=== PATIENT | male | born 1965 | race Caucasian/White ===

== ENCOUNTER → 2017-09-11 08:19 | Outpatient (CLI) | payer BC, SELFPAY ==
[2017-09-11 10:27] LABS: Anion Gap 4 (5-15); BUN 15 mg/dL (7-18); BUN/Creat Ratio 17.3 RATIO (10-20); Calcium,Total 8.3 mg/dL (8.5-10.1); Chloride 106 mmol/L (98-107); Cholesterol 186 mg/dL (200); Creatinine, Serum 0.87 mg/dL (0.70-1.30); EST Glomerular Filtration Rate 98 mL/min (>60); Est Glom Filt Rate - Afr Amer 118 mL/min (>60); Glucose 103 mg/dL (74-106); High Density Lipoprotein 43 mg/dL; Sodium Level 138 mmol/L (136-145); Triglycerides 120 mg/dL; Very Low Density Lipoprotein 24 mg/dL (5-40)
== END ==
PROVIDERS: Family Provider Family Medicine; PCP Family Medicine; Visit Provider Family Medicine
DX: I10 Essential (primary) hypertension (principal)
CPT/HCPCS: 36415; 80048; 80061

== ENCOUNTER → 2017-11-25 14:31 | Outpatient (CLI) | payer BC, SELFPAY ==
--- NOTE | 2017-11-25 14:34 | RAD_ITS ---
STUDY: X-RAY - PELVIS AND LEFT HIP REASON FOR EXAM: Male, 52 years old. Chronic left hip pain. TECHNIQUE: Radiological exam, hip, unilateral, with pelvis when performed; 2 or 3 views. COMPARISON: None. FINDINGS: There is a non-specific bowel gas pattern. Normal visualized soft tissue structures. Normal bilateral iliac wings, sacroiliac joints and visualized sacrum. Normal bilateral superior and inferior pubic rami. Normal pubic symphysis. Normal bilateral ischial tuberosities. There are osteoarthritic changes of the left femoral head with marginal osteophyte formation. There is osteoarthritic spur formation of the lateral acetabular rim. There is mild articular joint space narrowing of the left hip. RAD/Hip 2-3 Views with Pelvis IMPRESSION: Degenerative changes of the left hip. Electronically Signed: Eder Torres DO at 15:05 EDT Tel [phone], Service support ,
== END ==
PROVIDERS: Family Provider Family Medicine; PCP Family Medicine; Visit Provider Family Medicine
DX: M16.12 Unilateral primary osteoarthritis, left hip (principal)
CPT/HCPCS: 73502

== ENCOUNTER 2018-01-15 07:00 | Outpatient (RCR) | payer BC, SELFPAY ==
--- NOTE | 2017-12-06 07:48 | HP.PTEVAL_ITS ---
Patient's Visit Information CY LIM is a 52 year old M referred to Physical Therapy by Juan Hunt with a diagnosis of Hip Pain. Date of Evaluation: 12/06/17 Physical Therapist: Lesli Jarquin - Visit Plan Frequency: 2x /Week Duration: 3 Weeks Plan: Focus on LE strength/stabilization - Subjective Subjective: Left hamstring pain- insidious onset a couple of months ago. If he sneezes it hurts on the right side but does not do it any other time. Pain is located in the left hamstring- Agg: sitting, putting shoes on Worst: 7/10 Once he gets up he has to keep moving. Best: 2/10 Eases: getting up and moving around and it dulls it quickly. Describes pain as dull and achy now that he is on Naproxen- he is 75% better since started the meds- 11/25. Has always had N/T that comes and goes. If he straightens up it makes the N/T worse. X-rays of and hip and pelvis. MD reports that he has an arthritic hip - not ready to be replaced. He goes to the chiropractor- Dr. Ayala- last episode of can't get off the floor back pain was about a year ago. 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 The left hamstring will cramp on him. Sleep: does not disturbed- back sleeper. No loss or change in bowel or bladder. PMHx: right arm fracture, back issues, bilateral carpal tunnel, bilateral wrist, appendix/gallbladder, HTN, Right RTC Repair (4 years ago) Meds : Naproxen, HTN med. - Objective Posture: good throughout. Gait: no deviation noted. Stairs: no deviation noted. HR/TR: WNL. Balane: SLS for 20 seconds. Palpation: not tender. ROM: Lumbar: WFL, Hip: WFL except IR: decreased by 50% compared to the right with significant reproduction of symptoms. Strength: Core: fair plus, Hip: 4/5 throughout Knee: 5/5, Ankle: 5/5. Special Test: Figure 4: diminishd by 50% compared to other side and increases pain. Flex: HS: severe, Gastroc: mod - Goals Goal 1:: Patient will be I with HEP and progression Goal Time Frame: 4-6 Weeks Goal 2:: Patient will demo 5/5 strength in LE where deficit to ease ADL's. Goal Time Frame: 4-6 Weeks Goal 3:: Patient will report 2/10 pain for 1 week at the worst Goal Time Frame: 4-6 Weeks - Rehabilitation Potential Physical Therapy Diagnosis: Patient presents with hypomobility of the left hip- he has decreased ROM, strength and muscular endurance leading to increased pain. Rehabilitation Potential: Fair - Anticipated Interventions Patient/Client Instruction: Educate patient on: Benefits of Fitness Program For the Purpose of:: To improve ability to perform ADL's Therapeutic Exercise to Include: Strength training, Endurance training, Balance training, Body mechanics, Flexibilty training, Dynamic Lumbar Stabilization For the Purpose of:: To improve muscle performance and motor function Cryotherapy (ice pack, ice massage): Yes Thermo therapy (hot pack): Yes Ultrasound (thermal/non thermal): Yes For the Purpose of:: To decrease pain Thank you for the opportunity to evaluate your patient. For Medicare and Medicare HMO plans, please review the plan of care and approve it. It will need to be FAXED BACK to us at [phone] for Medicare purposes. Please let me know if there are questions or concerns regarding this plan of care. Physician Signature: Date:
--- NOTE | 2017-12-27 07:50 | HP.PTREVAL_ITS ---
Juan Hunt, It has been my pleasure to treat CY LIM over the last 6 visits for Hip Pain. Please see the progress note below for an update on the physical therapy plan of care! Subjective: The hip/hamstring is better- no pain running heavy equiptment. He still has twinges every now and then and would like to continue to learn a home exercise program Objective/Function: Posture: good throughout. Gait: no deviation noted. Stairs : no deviation noted. HR/TR: WNL. Balane: SLS for 30 seconds. Palpation: not tender. ROM: Lumbar: WFL, Hip: WFL except IR: decreased by 25% compared to the right with moderate reproduction of symptoms. Strength: Core: fair plus, Hip: 4 +/5 throughout Knee: 5/5, Ankle: 5/5. Special Test: Figure 4: diminishd by 50% compared to other side and increases pain. Flex: HS: severe, Gastroc: mod Plan Plan: Continue 1x a weekfor 4 weeks for progression to HEP Goals Goal 1:: Patient will be I with HEP and progression Goal Time Frame: 4-6 Weeks Goal Progress: Progressing Goal 2:: Patient will demo 5/5 strength in LE where deficit to ease ADL's. Goal Time Frame: 4-6 Weeks Goal Progress: Progressing Goal 3:: Patient will report 2/10 pain for 1 week at the worst Goal Time Frame: 4-6 Weeks Goal Progress: Progressing Anticipated Interventions Patient/Client Instruction: Educate patient on: Benefits of Fitness Program For the Purpose of:: To improve ability to perform ADL's Therapeutic Exercise to Include: Strength training, Endurance training, Balance training, Body mechanics, Flexibilty training, Dynamic Lumbar Stabilization For the Purpose of:: To improve muscle performance and motor function Cryotherapy (ice pack, ice massage): Yes Thermo therapy (hot pack): Yes Ultrasound (thermal/non thermal): Yes For the Purpose of:: To decrease pain Please do not hesitate to contact me at [phone] by phone or Fax: if you have questions or concerns regarding this new plan of care! Sincerely, Lesli Jarquin
--- NOTE | 2018-01-15 07:26 | HP.PTDCSUM_ITS ---
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 Discharge Date: Please see the following information for a summary of their discharge status. - Subjective Subjective: Pt reports he has no pain this date. I am as painfree as i have been in a long time. - Overall Improvement % Improvement: 100 - Objective Objective/Function: Pt has 0/10 pain this date. B LE MMT 5/5 throughout. Pt is I with HEP. Rx goals achieved - Goals Goal 1:: Patient will be I with HEP and progression Goal Progress: Goal Met Goal 2:: Patient will demo 5/5 strength in LE where deficit to ease ADL's. Goal Progress: Goal Met Goal 3:: Patient will report 2/10 pain for 1 week at the worst Goal Progress: Goal Met - Plan Plan: Discharge - D/C Information If there are questions or concerns regarding this patient's physical therapy, please feel free to call me at [phone]. Thank you for the referral of this patient. Sincerely, Félix Amaya, PT,
== END 2018-01-15 18:33 | disposition home or self-care (01) ==
LOC: PT 07:00
PROVIDERS: Family Provider Family Medicine; PCP Family Medicine; Visit Provider Family Medicine
DX: M25.552 Pain in left hip (principal)
CPT/HCPCS: 97110; 97161; 97164; 97530

== ENCOUNTER → 2018-09-15 08:36 | Outpatient (CLI) | payer BC, SELFPAY ==
[2018-09-15 10:54] LABS: Anion Gap 9 (5-15); BUN 22 mg/dL (7-18); BUN/Creat Ratio 24.7 RATIO (10-20); Calcium,Total 8.5 mg/dL (8.5-10.1); Chloride 107 mmol/L (98-107); Cholesterol 160 mg/dL (200); Creatinine, Serum 0.89 mg/dL (0.70-1.30); EST Glomerular Filtration Rate 94 mL/min (>60); Est Glom Filt Rate - Afr Amer 114 mL/min (>60); Glucose 105 mg/dL (74-106); High Density Lipoprotein 51 mg/dL; Sodium Level 144 mmol/L (136-145); Triglycerides 99 mg/dL; Very Low Density Lipoprotein 20 mg/dL (5-40)
== END ==
PROVIDERS: Family Provider Family Medicine; PCP Family Medicine; Visit Provider Family Medicine
DX: I10 Essential (primary) hypertension (principal)
CPT/HCPCS: 36415; 80048; 80061

== ENCOUNTER → 2019-09-16 08:35 | Outpatient (CLI) | payer BC, SELFPAY ==
[2019-09-16 10:27] LABS: Anion Gap 4 (5-15); BUN 19 mg/dL (7-18); BUN/Creat Ratio 20.2 RATIO (10-20); Calcium,Total 8.6 mg/dL (8.5-10.1); Chloride 106 mmol/L (98-107); Cholesterol 197 mg/dL (200); Creatinine, Serum 0.94 mg/dL (0.70-1.30); EST Glomerular Filtration Rate 88 mL/min (>60); Est Glom Filt Rate - Afr Amer 107 mL/min (>60); Glucose 112 mg/dL (74-106); High Density Lipoprotein 47 mg/dL; Potassium 3.8 mmol/L (3.5-5.1); Sodium Level 139 mmol/L (136-145); Triglycerides 116 mg/dL; Very Low Density Lipoprotein 23 mg/dL (5-40)
== END ==
PROVIDERS: PCP Family Medicine; Referring Provider Family Medicine; Visit Provider Family Medicine
DX: I10 Essential (primary) hypertension (principal)
CPT/HCPCS: 36415; 80048; 80061

== ENCOUNTER → 2019-11-04 15:39 | Outpatient (CLI) | payer BC, SELFPAY ==
--- NOTE | 2019-11-04 15:42 | RAD_ITS ---
STUDY: X-RAY - PELVIS AND BILATERAL HIPS REASON FOR EXAM: Male, 54 years old. Right hip pain TECHNIQUE: AP view of the pelvis.? 2 views of the right hip, and 2 views of the left hip were obtained. COMPARISON: 11/25/2017. FINDINGS: There is a non-specific bowel gas pattern. Normal visualized soft tissue structures. Normal bilateral iliac wings, sacroiliac joints and visualized sacrum. Normal bilateral superior and inferior pubic rami. Normal pubic symphysis. Normal bilateral ischial tuberosities. There are osteoarthritic changes of the right femoral head with marginal osteophyte formation. There is osteoarthritic spur formation of the right acetabular rim. There is moderate articular joint space narrowing of the right hip. There are mild osteoarthritic changes of the left femoral head with marginal osteophyte formation. There is osteoarthritic spur formation of the left acetabular rim. Normal left hip joint. RAD/Hips B/L min 2 views w/ Pelvis IMPRESSION: No acute abnormalities. Bilateral degenerative changes worse of the right hip. Electronically Signed: Larry Valdovinos MD at 16:16 EDT , Service support ,
== END ==
PROVIDERS: PCP Family Medicine; Referring Provider Family Medicine; Visit Provider Family Medicine
DX: M25.551 Pain in right hip (principal)
CPT/HCPCS: 73521

== ENCOUNTER 2019-11-17 08:00 | Outpatient (RCR) | payer BC, SELFPAY ==
--- NOTE | 2019-11-11 09:31 | HP.PTEVAL_ITS ---
Patient's Visit Information CY LIM is a 54 year old M referred to Physical Therapy by Juan Hunt MD with a diagnosis of R hip pain. Date of Evaluation: 11/11/19 Physical Therapist: Félix Amaya PT, ATC - Visit Plan Frequency: 1x/Week Duration: 1 Week Plan: Issue and instruct pt on HEP of R LE strenthening, core stab ex's - Subjective Pt reports his R hip has been sore for a long time. Pt reports his pain starts in his hip and radiates to his R groin. Pt had xrays taken which revealed sig deg changes in the R hip, and mild to moderate deg changes in the L hip. Pt reports his pain is stabbing in nature. Pt reports he has an aching pain down his R LE to the calf region at times. 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 Pt reports sig sleep difficulty secondary to pain. prolonged standing increases his pain. 5/10 pain at rest, 10/10 pain at worst. - Pain R hip Pain Intensity (Out of 10): 5 Pain Intensity Range: 10 - Objective Neuro: B LE sensation is WNL to light touch. B patellar reflex= 2/3. ROM: R hip IR is significantly limited. All other ranges are WNL. MMT: L LE 5/5 throughout. R hip grossly 4/5 and painful. ROM: L/S ext is minimally blocked. No increase in pain with repeated movements. Special test: Pos quadrant test - Goals Goal 1:: I with HEP Goal Time Frame: 1 Week - Rehabilitation Potential Physical Therapy Diagnosis: Pt has R hip pain, weakness, and limited standing tolerance secondary to R hip pain Rehabilitation Potential: Good - Anticipated Interventions Patient/Client Instruction: Educate patient on: Condition, Plan of Care For the Purpose of:: To improve self management Therapeutic Exercise to Include: Strength training, Endurance training, Balance training, Dynamic Lumbar Stabilization For the Purpose of:: To decrease pain, To improve muscle performance and motor function Cryotherapy (ice pack, ice massage): Yes For the Purpose of:: To decrease pain Thank you for the opportunity to evaluate your patient. For Medicare and Medicare HMO plans, please review the plan of care and approve it. It will need to be FAXED BACK to us at [phone] for Medicare purposes. For Medicare only, by signing this I certify the plan of care. Please let me know if there are questions or concerns regarding this plan of care. Physician Signature: _Date:
--- NOTE | 2019-12-10 16:14 | HP.PT.NRP ---
CY LIM was seen in my office for initial evaluation on 11/11/19. The following Plan of Care was established for this patient: Initial Frequency: 1x/Week Initial Duration: 1 Week Patient/Client Instruction: Educate patient on: Condition, Plan of Care For the Purpose of:: To improve self management Therapeutic Exercise to Include: Strength training, Endurance training, Balance training, Dynamic Lumbar Stabilization For the Purpose of:: To decrease pain, To improve muscle performance and motor function Cryotherapy (ice pack, ice massage): Yes For the Purpose of:: To decrease pain This patient was last seen in our office . Pertinent comments regarding their Physical therapy will appear below: Discontinue secondary to change in Dr. At this point I will be discontinuing this patient from physical therapy. I would be happy to see this patient again in the future if found appropriate by the physician. Thank you! Félix Amaya, PT, ATC
== END 2019-11-17 19:00 | disposition home or self-care (01) ==
LOC: PT 08:00
PROVIDERS: PCP Family Medicine; Referring Provider Family Medicine; Visit Provider Family Medicine
DX: M16.0 Bilateral primary osteoarthritis of hip (principal)
CPT/HCPCS: 97110; 97161

== ENCOUNTER → 2019-11-26 08:59 | Outpatient (CLI) | payer BC, SELFPAY ==
[2019-11-26 10:17] LABS: Absolute Neutrophil Count 2.6 X10^3/uL (2.0-7.7); Basophil# 0.05 X10^3/uL; Basophil% 1.2 % (0-1); Eosinophil# 0.17 X10^3/uL; Eosinophils% 3.9 % (0-5); Hematocrit 44.2 % (40-54); Hemoglobin 15.2 g/dL (13.0-16.5); Lymphocyte % 23.1 % (19-41); Mean Corp Hgb Conc 34.4 g/dL (32-36); Mean Corpuscular Hgb 30.1 pg (27.0-32.0); Mean Corpuscular Volume 87.5 fL (80-94); Mean Platelet Vol. 9.4 fl (6.2-12.0); Monocyte# 0.42 X10^3/uL; Monocyte% 9.7 % (0-10); NRBC Flagged by Analyzer 0 % (0-5); Neutrophil # 2.62 X10^3/uL (2.7-7.7); Neutrophil % 60.5 % (47-70); Platelet Count 192 K/mm3 (150-450); RBC Distribution Width CV 12.6 % (11.6-14.6); RBC Distribution Width SD 39.4 fl (35.1-43.9); Red Blood Count 5.05 M/mm3 (4.6-6.2); White Blood Count 4.3 K/mm3 (4.4-11.0)
[2019-11-26 10:45] LABS: Anion Gap 6 (5-15); BUN 22 mg/dL (7-18); BUN/Creat Ratio 23.7 RATIO (10-20); Calcium,Total 8.6 mg/dL (8.5-10.1); Chloride 108 mmol/L (98-107); Creatinine, Serum 0.93 mg/dL (0.70-1.30); EST Glomerular Filtration Rate 89 mL/min (>60); Est Glom Filt Rate - Afr Amer 108 mL/min (>60); Glucose 102 mg/dL (74-106); Potassium 4.1 mmol/L (3.5-5.1); Sodium Level 141 mmol/L (136-145)
== END ==
PROVIDERS: PCP Family Medicine; Referring Provider Family Medicine; Visit Provider Family Medicine
DX: M25.551 Pain in right hip (principal)
CPT/HCPCS: 36415; 80048; 85025

== ENCOUNTER → 2019-12-17 11:07 | Outpatient (CLI) | payer BC, SELFPAY ==
--- NOTE | 2019-12-17 11:12 | VDLE_ITS ---
Reason For Study: Rt leg pain RIGHT LEFT GSV is normal. CFV is compressible, spontaneous, phasic, CFV is compressible, spontaneous, phasic, competent, and demonstrates normal competent and demonstrates normal augmentation. augmentation. FV is compressible, spontaneous, phasic, competent and demonstrates normal augmentation. POP V is compressible, spontaneous, phasic, competent and demonstrates normal augmentation. T/P Trunk is compressible. PTV is compressible. RT PerV is compressible. Procedure Exam performed in department. A preliminary report was called and/or faxed to [place]. Interpretation Summary Deep veins of the right lower extremity are patent and compressible segmentally. There is no evidence of right lower extremity deep vein thrombosis. Valvular competence appears intact within the proximal deep venous system on the right . The right great saphenous vein appears patent and compressible segmentally. Ordering Physician: Linus Quinn Referring Physician: Juan Hunt Performed By: Felicity Lafleur RVT
== END ==
PROVIDERS: PCP Family Medicine; Referring Provider Specialist; Visit Provider Specialist
DX: M79.604 Pain in right leg (principal)
CPT/HCPCS: 93971

== ENCOUNTER → 2020-01-04 13:36 | Outpatient (CLI) | payer BC, SELFPAY ==
--- NOTE | 2020-01-04 13:38 | VDLE_ITS ---
Reason For Study: LEG SWELLING RIGHT LEFT GSV is normal. CFV is compressible, spontaneous, phasic, CFV is compressible, spontaneous, phasic, competent, and demonstrates normal competent and demonstrates normal augmentation. augmentation. FV is compressible, spontaneous, phasic, competent and demonstrates normal augmentation. POP V is compressible, spontaneous, phasic, competent and demonstrates normal augmentation. T/P Trunk is compressible. PTV is compressible. RT PerV is compressible. Procedure Exam performed in department. The exam was diagnostic. A preliminary report was called and/or faxed to Dr. Quinn at [phone]. Interpretation Summary Deep veins of the right lower extremity are patent and compressible segmentally. There is no evidence of right lower extremity deep vein thrombosis. Valvular competence appears intact within the proximal deep venous system on the right . The right great saphenous vein appears patent and compressible segmentally. Ordering Physician: Linus Quinn Referring Physician: Juan Hunt Performed By: Maria M Michael RVT, RDCS and Student
== END ==
PROVIDERS: PCP Family Medicine; Referring Provider Specialist; Visit Provider Specialist
DX: R60.0 Localized edema (principal); M16.11 Unilateral primary osteoarthritis, right hip; Z96.641 Presence of right artificial hip joint
CPT/HCPCS: 93971

== ENCOUNTER 2020-01-05 13:00 | Outpatient (RCR) | payer BC, SELFPAY ==
--- NOTE | 2019-12-10 17:35 | HP.PTEVAL_ITS ---
Patient's Visit Information CY LIM is a 54 year old M referred to Physical Therapy by Matthew Rivas PA-C with a diagnosis of R AMBER. Date of Evaluation: 12/10/19 Physical Therapist: Félix Amaya, PT, ATC - Visit Plan Frequency: 2-3x /Week Duration: 4-6 Weeks Plan: R LE strengthneing, balance and proprio, core stab ex's, nustep, and HEP - Subjective DOS: 12/08/2019. Pt notes he had R knee pain for a long time. Pt reports he had PT in the past, but his pain never improved. Pt reports he feels so much better now since having the surgery. Pt reports the pain he had prior to surgery is completely gone. Pt reports he walked with a walker for a day at the hospital but then transitioned onto a cane which has has been using since. Pt notes he had an anterior approach for his AMBER. Pt notes sleep difficulty with out pain meds. No tingling or numbness in R LE. 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 4/10 pain at rest, 8/10 pain at worst - Pain R hip Pain Intensity (Out of 10): 4 Pain Intensity Range: 8 - Objective Neuro: B LE sensation is WNL to light touch. B patellar reflex= 2/3. Observation: Incision still bandanged. No obvious signs of infection. ROM: B LE's are WFL. MMT: R LE is grossly 3/5 this date. L LE 5/5 throughout. Gait: Pt able to ambulate 150 feet with std cane until having to rest secondary to pain. - Goals Goal 1:: Decrease R hip pain x 50% to aid with sleep Goal Time Frame: 4-6 Weeks Goal 2:: Increase R hip strength x 1 grade to aid with stair negotiation Goal Time Frame: 4-6 Weeks Goal 3:: Increase gait tolerance to greater than 300 feet to aid with community ambulation Goal Time Frame: 4-6 Weeks Goal 4:: I with HEP Goal Time Frame: 4-6 Weeks - Rehabilitation Potential Physical Therapy Diagnosis: R hip pain, weakness, and limited walking distance secondary to R AMBER Rehabilitation Potential: Good - Anticipated Interventions Patient/Client Instruction: Educate patient on: Condition, Plan of Care For the Purpose of:: To improve self management Therapeutic Exercise to Include: Strength training, Endurance training, Balance training, Gait and locomotor training, Dynamic Lumbar Stabilization For the Purpose of:: To decrease pain, To increase ROM, To improve muscle performance and motor function Cryotherapy (ice pack, ice massage): Yes For the Purpose of:: To decrease pain Thank you for the opportunity to evaluate your patient. For Medicare and Medicare HMO plans, please review the plan of care and approve it. It will need to be FAXED BACK to us at [phone] for Medicare purposes. For Medicare only, by signing this I certify the plan of care. Please let me know if there are questions or concerns regarding this plan of care. Physician Signature: Date:
== END 2020-01-05 19:00 | disposition home or self-care (01) ==
LOC: PT 13:00
PROVIDERS: PCP Family Medicine; Referring Provider Physician Assistant Surgical; Visit Provider Physician Assistant Surgical
DX: M16.0 Bilateral primary osteoarthritis of hip (principal)
CPT/HCPCS: 97110; 97161

== ENCOUNTER → 2020-01-07 09:48 | Outpatient (CLI) | payer BC, SELFPAY ==
[2020-01-07 10:27] LABS: Absolute Lymphocyte Count 0.54 X10^3/uL (0.83-4.51); Absolute Neutrophil Count 8.3 X10^3/uL (2.0-7.7); Basophil# 0.02 X10^3/uL; Basophil% 0.2 % (0-1); Eosinophil# 0.06 X10^3/uL; Eosinophils% 0.6 % (0-5); Hematocrit 43.2 % (40-54); Lymphocyte # 0.54 X10^3/ul (4.0); Lymphocyte % 5.7 % (19-41); Mean Corp Hgb Conc 32.4 g/dL (32-36); Mean Corpuscular Hgb 29.9 pg (27.0-32.0); Mean Corpuscular Volume 92.1 fL (80-94); Mean Platelet Vol. 9.5 fl (6.2-12.0); Monocyte# 0.57 X10^3/uL; NRBC Flagged by Analyzer 0 % (0-5); Neutrophil % 87.2 % (47-70); POSITIVE DIFFERENTIAL YES; Platelet Count 162 K/mm3 (150-450); RBC Distribution Width CV 13.6 % (11.6-14.6); RBC Distribution Width SD 45.3 fl (35.1-43.9); Red Blood Count 4.69 M/mm3 (4.6-6.2); White Blood Count 9.5 K/mm3 (4.4-11.0)
[2020-01-07 10:34] LABS: Differential Indicated SCAN CRITERIA MET
[2020-01-07 10:38] LABS: Erythrocyte Sedimentation Rate 28 mm/hr (0-20)
[2020-01-07 16:26] LABS: Body Fluid Mononuclear WBC % 7.5 %; Body Fluid Polynuclear WBC % 92.5 %; Red Cell Count/Body Fluid 0.046 10^6/ul
[2020-01-07 18:07] LABS: Auto B Fluid Analyzer BKGD Ct COUNTS W/IN LIMITS (W/IN LIMITS)
[2020-01-07 18:08] LABS: Appearance/Body Fluid TURBID; Color/Body Fluid PINK; Lymphocytes 1 %; Neutrophil (Segs) 99 %; Source- Body Fluid OTHER
[2020-01-07 18:09] LABS: Body Fluid QC Type(s) BF1Q.BF2Q
[2020-01-11 11:36] LABS: Pathologist Comment/Body Fluid Reviewed
== END ==
PROVIDERS: PCP Family Medicine; Referring Provider Specialist; Visit Provider Specialist
DX: M25.551 Pain in right hip (principal); Z96.641 Presence of right artificial hip joint
CPT/HCPCS: 36415; 85025; 85652; 86140; 87015; 87070; 87075; 87077; 87101; 87116; 87186; 87205; 87206; 89050

== ENCOUNTER 2020-01-07 18:29 | Inpatient (IN) | payer BC, SELFPAY ==
[2020-01-07 17:53] VITALS: BMI 32.4
[2020-01-07 18:30] VITALS: BP 129/76; PULSE 96; RESP 18; TEMP 38.7; O2SAT 95
[2020-01-07] MEDS: Acetaminophen 500 MG Tablet 1000 MG PO (19:44)
[2020-01-07 20:48] VITALS: BP 122/59; PULSE 104; RESP 18; TEMP 38.8; O2SAT 93
[2020-01-07 21:01] VITALS: RESP 18
[2020-01-07] MEDS: oxyCODONE 5 MG Tablet PO (21:17)
[2020-01-07] MEDS: 0.9% Saline Lock 10 ML Syringe IV (21:18)
[2020-01-08] VITALS (15 sets, daily range): BP systolic 102–146; BP diastolic 56–82; PULSE 80–98; RESP 16–20; TEMP 36.2–37.4; O2SAT 92–100; BMI 32.4
--- NOTE | 2020-01-08 | TISS_PTH ---
PATIENT: CY LIM LOC: [id number] U#:[id number] AGE/SX: 54/M ROOM: [facility] RE01/07/[address]: Dr. Linus Quinn MD : 1965 BED: 1 DIS: 01/12/2020 SPEC #: [id number] RECD: 01/08/20 15:00 STATUS: RACHELLE GARCÍALatasha #: [id number] ASHLI: 01/08/20 00:[address]: Linus Quinn DEPT: SURGICAL PATHOLOGY RECD BY: Shravan Montez ENTERED: 01/11/20 09:44 SP TYPE: Tissue Bx JONATHAN DR: MD Dr. Ramses Galeano MD Tissues: Hip, NOS Procedures: Special Stain Group I Surgery Specimen Level IV AFB Stain (control) HEADER OPERATION: Total hip anterior revision, I & D, application of wound vac PRE-OP DIAGNOSIS: Infected, painful right hip TISSUE SUBMITTED: Femoral membrane right hip MICROSCOPIC DIAGNOSIS Femoral membrane of right hip, biopsy: Fragments of bone with chronic change and organizing blood clot. Negative for acid fast bacilli. See comment. AM:leander 01/12/20 COMMENT AFB stain with matched control supports the above diagnosis. MICROSCOPIC DESCRIPTION Slides are reviewed. GROSS DESCRIPTION Received in fixative is one container labeled with the patient's name and designated femoral membrane. The specimen consists of two fragments of pink congested, gritty tissue that in aggregate measure 1.5 x 1 x 0.2 cm. The specimen is totally submitted in one cassette. / SJ:leander 01/11/20 TC:3 CPT: 46271, 56488
[2020-01-08] MEDS: 0.9% Normal Saline 1,000 ML 125 ML IV ×2 (00:20→08:54)
[2020-01-08] MEDS: 0.9% Saline Lock 10 ML Syringe IV ×3 (00:24→16:18)
[2020-01-08] MEDS: oxyCODONE 5 MG Tablet PO ×2 (01:54→22:14)
--- NOTE | 2020-01-08 02:55 | EKG12_ITS ---
Test Reason : AM EKG Blood Pressure : / mmHG Vent. Rate : 085 BPM Atrial Rate : 085 BPM P-R Int : 156 ms QRS Dur : 084 ms QT Int : 354 ms P-R-T Axes : 052 043 022 degrees QTc Int : 421 ms Normal sinus rhythm Normal ECG Confirmed by KVNG NO, DARON ([id number]), research editor ALCON MEDELLIN ([id number]) on 01/13/2020 10:25:51 AM Referred By: [place] Confirmed By:DARON CALDERON MD
[2020-01-08] MEDS: Acetaminophen 500 MG Tablet 1000 MG PO ×3 (05:42→22:23)
[2020-01-08] MEDS: Lactated Ringers 1,000 ML 125 ML IV ×3 (09:00→16:14)
--- NOTE | 2020-01-08 09:06 | NURSING ---
Pt brought down to OR via bed.
--- NOTE | 2020-01-08 09:40 | RAD_ITS ---
STUDY: X-RAY - PELVIS AND RIGHT HIP REASON FOR EXAM: Male, 54 years old. intraoperative right hip revision TECHNIQUE: Intraoperative fluoroscopy COMPARISON: None. FINDINGS: Refer to operative report for details. There is right hip arthroplasty. RAD/Hip 1 view with Pelvis IMPRESSION: Right hip arthroplasty intraoperative fluoroscopy. Electronically Signed: Robert Saleem, at 16:28 EDT Tel , Service support ,
[2020-01-08] MEDS: Cefazolin 2 GM in 0.9% Normal Saline 100 ML IV (11:19)
[2020-01-08] MEDS: Vancomycin IV 1,000 MG/20 ML Vial 1000 MG OPERA.SITE (12:00)
--- NOTE | 2020-01-08 12:18 | CASEMGMT ---
Addendum entered by Yulia Cartwright 01/08/20 14:07: Pt is still @ OR. Original Note: RN CM NOTE: Pt @ OR. Unable to complete RN CM assessment at this time. Neymar CARRN RN CM
--- NOTE | 2020-01-08 13:01 | PCM.OPRPT ---
Report of Operation Date of Procedure: 01/08/20 Pre-Operative Diagnosis: Right hip periprosthetic joint infection Post-Operative Diagnosis: Right hip periprosthetic joint infection Surgery/Procedure Performed:: Direct anterior right hip irrigation debridement with revision of entire femoral component and acetabular component liner. Description of Surgical Findings:: Hip was aggressively debrided. Stable on reduction. Femoral component was removed and new cemented component was placed. Acetabular component was well fixed so we elected to maintain the acetabular component. senior database programmer: Jose Rivas Type of Anesthesia:: General Anesthesiologist: Devin Paul Special Medications: 2 g of Ancef after cultures, vancomycin IV 15 mg/kg after culture. 1 g vancomycin powder in wound at completion of case. Specimen's removed: 5 separate specimens were sent to microbiology. 2 superficial, 3 deep. Estimated Blood Loss (mL): 450 Fluids Replaced: 1400 Description of Procedure: Components used: 1. [place] Berna femoral stem size 37.5/3 2. Berna X3 polyethylene G 3. [place] Biolox delta 36mm, 0mm femoral head Brief history operative indications: 54 yo m who had a total hip replacement on December 08, 2019. Patient did well he did have some bloody drainage for about 48 hours after surgery which healed up without incident. He had swelling 5 days after surgery which resolved with seem to be uneventfully. 3 days ago he started having increased swelling again with progressive pain and mild ulceration of the distal part of the incision. He was aspirated in the office with purulent fluid and a CRP of 326. Based on the proximity to surgery irrigation debridement and revision total hip replacement was discussed with the patient with risks and benefits including but not limited to blood loss, DVTs, PEs, neurovascular damage, dislocation, general risks of anesthesia including loss of life. Patient demonstrated an understanding medical clearance is obtained the patient was consented for surgery. Procedure: On the date of procedure the patient's r hip was marked in the preoperative area. Patient was then taken back to the operating room where anesthesia assumed control of the C-spine and airway and administered anesthetic. Patient was transferred to the operating table and placed in the supine position. The hips were placed at the break of the bed and a sacral bump was placed. The r lower extremity was then prepped out in a sterile fashion using chlorhexidine while the surgeon scrubbed. The PA was vital in the positioning of the patient. Upon reentering the room the r lower extremity was draped in the standard orthopedic fashion and the incision was marked. A timeout was called and everyone agreed upon the side, the site, the procedure be performed, antibody given, and patient's identity. At this time incision was made through skin, subcutaneous tissue and area of collected hematoma had gross purulence. This was aggressively debrided. Soft tissue from this area was sent for culture. It was very clear that there was a connection with this area and a collection of purulent fluid deeper into the joint. After this area was aggressively debrided removing any infectious debris and tissue we then incised the fascia and were able to get deep to the joint. The fascia was then incised and the TFL was retracted laterally. At this point we were able to get down to the joint. There was gross purulence deep. We did an aggressive synovectomy debriding the deep area prior to dislocating the hip. Medial and lateral releases were done on the femoral neck were necessary and the hip was dislocated. We were able to dislocate the femoral component and deliver the femoral head. Bone tamp was used to remove the femoral head from the trunnion. At this point we used a flexible osteotome to lightly debride around the femoral component and we were able to extract the femoral component using an extractor. We then re-broached proximally and debrided getting femoral membrane for culture. Once we are happy with debridement of the femoral canal we direct our attention to the acetabulum. Attention was then turned toward the acetabulum where the soft tissues were appropriately debrided and then retracted and the acetabulum was exposed and an osteotome was used to remove the acetabular component. We threaded the impactor into the acetabular component and were unable to break the bone implant interface it was at this time we elected to maintain the acetabular component due to its good fixation. Cultures were sent from the acetabular membrane. At this point the wound was aggressively irrigated with 6 L of normal saline. We also lavage the joint with chlorhexidine solution. After we had aggressively debrided the joint and irrigated it out all dirty instrumentation was removed and new instrumentation was open. Everyone re-sterilized and gowned and gloved. New Ioban was placed over the area of the wound and new drapes were placed over the old ones. Ioban was cut and we were able to open up the wound again. At this time pulse lavage was used to irrigate deep in the acetabular component was again inspected. Acetabular liner was an open and impacted into place. Attention was then turned to the femur. We again verified we had adequately debrided the femur. At this time began broaching with the [place] stem. We subsequently broached up to a size 37.5/3 femur. The appropriate neck was placed in the previously selected head was trialed with a +0 mm neck. Traction was pulled and the hip was reduced with internal rotation. Once it was appropriately reduced and stability was checked. There was minimal shuck, equal leg lengths and appropriate stability with hyperextension and external rotation as well as with 90? flexion and internal rotation. Fluoroscopy was then also used to verify the position of the components and leg lengths using the contralateral side for comparison. The trial components were then dislocated the proximal femur was again exposed and the components were removed from the wound. The final components were verified and opened. The wound was copiously irrigated out with normal saline and the femoral canal was prepped for cement. Cement was mixed. A cement restrictor was placed in the distal canal. The acetabulum was checked for any residual debris. At this time the cement was pressurized into the canal after was thoroughly dried and prepped. The stem was then placed in the appropriate position and held with pressure while the cement was allowed to cure. After this was done we again trialed the 0/36 femoral head and we had a stable hip with equal leg lengths. Final x-rays were taken as the final stem was in place. Trial femoral head was again dislocated and the trunnion was exposed and cleaned. The final components were placed and impacted. Traction and internal rotation were again used to reduce the hip. After adequate reduction the hip remained stable with appropriate leg lengths. The final components were once again checked with live fluoroscopy and were found to be satisfactory. The wound was then copiously irrigated with normal saline once more, and hemostasis was obtained. Closure was then done using #1 Vicryl runner to close the fascia. A 2-0 vicryl interuppted sutures were used to close the subcutaneous skin. A 3-0 nylon interrupted mattress sutures were used for final skin closure. A wound VAC dressing was placed. Patient was awakened by anesthesia and transferred to the [facility]. Patient was then transferred to the PACU for recovery. Postoperative plan: Patient has been discussed with the infectious disease doctor. We will start vancomycin and Ancef as we follow cultures. He will require 6 weeks of IV antibiotic therapy. Patient will get in-house physical therapy and will be weight-bear as tolerated. Patient will follow up in office in 2 weeks for a wound check and x-rays. During the course of the procedure the physician cloth brushing and sueding supervisor (PE) played a vital role. Their intimate knowledge of my steps in the procedure aided in safe and expedient completion of the procedure. The PE played a vital rolls in positioning particularly in obtaining the appropriate positioning of the sacral bump. The PE was also vital in the retraction of soft tissues during the exposure and especially the femoral work as this is a vital part of the procedure to prevent complications and fractures. The PE was also vital and protecting soft tissues during times of bony cuts and reaming. He also played a vital role in closure with my direct supervision. The PE was also important during reduction and dislocation of the joint and trials intraoperatively. - Complications No intraoperative complications - Admit VTE Documentation VTE Present on Admission: No VTE Mechan Device Prophylaxis: SCD's, Thigh High IRINA Hose VTE Pharm Prophylaxis ordered?: Yes
[2020-01-08] MEDS: Bacitracin 500 UNITS/GM PACKET (13:18)
[2020-01-08 13:22] LABS: Acid Fast Stain SEE PATHOLOGY REPORT; Cytology, Body Fluid / CSF SEE PATHOLOGY REPORT
--- NOTE | 2020-01-08 13:52 | RAD_ITS ---
STUDY: X-RAY - PELVIS AND RIGHT HIP REASON FOR EXAM: Male, 54 years old. POST OP PORTABLE RIGHT HIP. TECHNIQUE: 2 views of the pelvis and hip. COMPARISON: None. FINDINGS: There is a non-specific bowel gas pattern. Normal visualized soft tissue structures. Normal bilateral iliac wings, sacroiliac joints and visualized sacrum. Normal bilateral superior and inferior pubic rami. Normal pubic symphysis. Normal bilateral ischial tuberosities. Right hip prosthesis has been placed in anatomic alignment and position.. RAD/Hip Min 2 Views (Portable) IMPRESSION: Postsurgical changes status post right hip prosthesis placement. Electronically Signed: Satinder Cary MD at 16:20 EDT , Service support ,
[2020-01-08] MEDS: Lactated Ringers 1,000 ML 999 ML IV (14:23)
[2020-01-08 15:03] LABS: Anion Gap 5 (5-15); BUN 17 mg/dL (7-18); BUN/Creat Ratio 15.2 RATIO (10-20); Calcium,Total 8.3 mg/dL (8.5-10.1); Chloride 109 mmol/L (98-107); Creatinine, Serum 1.12 mg/dL (0.70-1.30); EST Glomerular Filtration Rate 72 mL/min (>60); Est Glom Filt Rate - Afr Amer 87 mL/min (>60); Estimated Creatinine Clearance 85.63 ml/min; Glucose 145 mg/dL (74-106); Sodium Level 137 mmol/L (136-145)
--- NOTE | 2020-01-08 15:07 | PCM.RX.CS ---
Consult Pharmacy has been consulted to manage selected antiobiotic: Vancomycin Type of Consult: New start Prior Doses of Antibiotics Received/Current Regimen: Medications Discontinued Medications Vancomycin HCl 1,750 mg/ (Sodium Chloride) 535 mls @ 250 mls/hr IV PREOP ONE Stop: 01/08/20 12:08 Last Admin: 01/08/20 11:19 Dose: 250 mls/hr Documented by: Labs: Sodium 137 mmol/L (136-145) 01/08/20 14:28 Potassium 4.0 mmol/L (3.5-5.1) 01/08/20 14:28 Chloride 109 mmol/L (98-107) H 01/08/20 14:28 Carbon Dioxide 23.0 mmol/L (21.0-32.0) 01/08/20 14:28 Anion Gap 5 (5-15) 01/08/20 14:28 BUN 17 mg/dL (7-18) 01/08/20 14:28 Creatinine 1.12 mg/dL (0.70-1.30) 01/08/20 14:28 Est GFR (MDRD) Af Amer 87 mL/min (>60) 01/08/20 14:28 Est GFR (MDRD) Non-Af 72 mL/min (>60) 01/08/20 14:28 BUN/Creatinine Ratio 15.2 RATIO (10-20) 01/08/20 14:28 Glucose 145 mg/dL (74-106) H 01/08/20 14:28 Weight used for dosin kg Estimated Creatinine Clearance: 86 mL/min Goal Trough: 10-15 mcg/mL Pharmacy Plan for Drug Dosinmg IV x1, 1250mg IV q12h, trough prior to 4th dose per policy. Pharmacy Service will continue to monitor and adjust dosing as required. Follow-Up Labs: Trough Vancomycin - 7/ @ 2230, Trough Gentamicin
[2020-01-08] MEDS: Scopolamine 1mg/72hr Patch 1 PATCH TD (16:17)
[2020-01-08] MEDS: Morphine 2 MG/ML Syringe IV (16:20)
[2020-01-08] MEDS: Ensure Surgery 237 ML LIQUID PO (17:29)
[2020-01-08] MEDS: Cefazolin 1 GM/50 ML BAG IV (22:15)
[2020-01-08] MEDS: Aspirin 81 MG TAB.CHEW PO (22:15)
[2020-01-08] MEDS: Meloxicam 7.5 MG Tablet PO (22:15)
[2020-01-08] MEDS: Senna/Docusate Sodium 1 Tablet 2 TABLET PO (22:15)
[2020-01-09 03:19] VITALS: BP 123/65; PULSE 82; RESP 16; TEMP 37.1; O2SAT 98
[2020-01-09] MEDS: Cefazolin 1 GM/50 ML BAG IV ×3 (05:23→21:47)
[2020-01-09] MEDS: Acetaminophen 500 MG Tablet 1000 MG PO ×3 (05:23→21:42)
[2020-01-09] MEDS: 0.9% Saline Lock 10 ML Syringe IV ×4 (06:08→21:48)
[2020-01-09 06:10] LABS: Hematocrit 30.1 % (40-54); Hemoglobin 9.6 g/dL (13.0-16.5); Mean Corp Hgb Conc 31.9 g/dL (32-36); Mean Corpuscular Hgb 29.7 pg (27.0-32.0); Mean Corpuscular Volume 93.2 fL (80-94); Mean Platelet Vol. 9.4 fl (6.2-12.0); Platelet Count 162 K/mm3 (150-450); RBC Distribution Width CV 13.1 % (11.6-14.6); RBC Distribution Width SD 44.6 fl (35.1-43.9); Red Blood Count 3.23 M/mm3 (4.6-6.2); White Blood Count 5.3 K/mm3 (4.4-11.0)
[2020-01-09 06:56] LABS: Anion Gap 6 (5-15); BUN 12 mg/dL (7-18); BUN/Creat Ratio 12.9 RATIO (10-20); Calcium,Total 8.1 mg/dL (8.5-10.1); Chloride 104 mmol/L (98-107); Creatinine, Serum 0.93 mg/dL (0.70-1.30); EST Glomerular Filtration Rate 89 mL/min (>60); Est Glom Filt Rate - Afr Amer 108 mL/min (>60); Estimated Creatinine Clearance 103.12 ml/min; Glucose 139 mg/dL (74-106); Potassium 3.5 mmol/L (3.5-5.1); Sodium Level 137 mmol/L (136-145)
[2020-01-09 08:13] VITALS: BP 129/65; PULSE 83; RESP 18; TEMP 37.2; O2SAT 97
[2020-01-09] MEDS: Ensure Surgery 237 ML LIQUID PO ×3 (08:16→16:39)
[2020-01-09] MEDS: BACITRACIN 15 GM Tube 1 APPLIC TOPICAL (08:16)
[2020-01-09] MEDS: Lisinopril 10 MG Tablet PO (09:45)
[2020-01-09] MEDS: Aspirin 81 MG TAB.CHEW PO ×2 (09:45→21:42)
[2020-01-09] MEDS: Famotidine 20 MG Tablet PO (09:45)
[2020-01-09] MEDS: Meloxicam 7.5 MG Tablet PO ×2 (09:45→21:41)
[2020-01-09] MEDS: Senna/Docusate Sodium 1 Tablet 2 TABLET PO ×2 (09:45→21:42)
[2020-01-09] MEDS: oxyCODONE 5 MG Tablet PO ×2 (09:55→19:42)
--- NOTE | 2020-01-09 10:49 | PCM.PN.ORT ---
Subjective: Patient is doing well. He is comfortable at this time. No acute events overnight. No chest pain. No shortness of breath or calf pain. Objective: Right hip radiographs were reviewed showing stable well fixed cemented total hip replacement. - Physical Exam Vitals/I&O's: Vital Signs Temp Pulse Resp BP Pulse Ox 98.9 F 83 18 129/65 H 97 01/09/20 08:13 01/09/20 08:13 01/09/20 08:13 01/09/20 08:13 01/09/20 08:13 Oxygen Delivery Method Room Air Weight: 252 lb 10.396 oz Body Mass Index (BMI) 32.4 Intake and Output for Last 24 Hours 01/07/20 01/08/20 01/09/20 23:59 23:59 23:59 Intake Total 7992.08 / 7992.08 1618.75 / 1618.75 Balance 7992.08 / 7992.08 1618.75 / 1618.75 General: Alert, Oriented x3, Cooperative Extremities: - - Right lower extremity: Dressing is clean dry and intact Sensations intact to light touch saphenous, sural, superficial peroneal, deep peroneal, and tibial distributions Motors intact EHL, DF, PF calves are soft and supple Erythema decreased from yesterday. Microbiology Past 72 Hours 01/08/20 13:00 Tissue - Hip Gram Stain - Final 01/08/20 13:00 Tissue - Hip Gram Stain - Final 01/08/20 13:00 Tissue - Hip Gram Stain - Final 01/08/20 13:00 Tissue - Hip Gram Stain - Final 01/08/20 13:43 Tissue - Other Gram Stain - Final Laboratory Results 01/08/20 13:00: Acid Fast Stain Pending, Miscellaneous Cytology Pending 01/08/20 14:28: Sodium 137, Potassium 4.0, Chloride 109 H, Carbon Dioxide 23.0, Anion Gap 5, BUN 17, Creatinine 1.12, Estim Creat Clear Calc 85.63, Est GFR (MDRD) Af Amer 87, Est GFR (MDRD) Non-Af 72, BUN/Creatinine Ratio 15.2, Glucose 145 H, Calcium 8.3 L 01/09/20 05:44: WBC 5.3, RBC 3.23 L, Hgb 9.6 L, Hct 30.1 L, MCV 93.2, MCH 29.7, MCHC 31.9 L, RDW Std Deviation 44.6 H, RDW Coeff of [place] 13.1, Plt Count 162, MPV 9.4 01/09/20 05:44: Sodium 137, Potassium 3.5, Chloride 104, Carbon Dioxide 27.0, Anion Gap 6, BUN 12, Creatinine 0.93, Estim Creat Clear Calc 103.12, Est GFR (MDRD) Af Amer 108, Est GFR (MDRD) Non-Af 89, BUN/Creatinine Ratio 12.9, Glucose 139 H, Calcium 8.1 L Current Medications Acetaminophen (Tylenol) 1,000 mg PO Q8 [facility] Last Admin: 01/09/20 05:23 Dose: 1,000 mg Documented by: Aspirin (Aspirin, Baby) 81 mg PO BID [facility] Last Admin: 01/09/20 09:45 Dose: 81 mg Documented by: Bacitracin (Bacitracin Ointment) 1 applic TOPICAL DAILY [facility]; Protocol Last Admin: 01/09/20 08:16 Dose: 1 applicatio Documented by: Enteral Nutritional Formula (Ensure Surgery) 237 ml PO TIDCM [facility] Last Admin: 01/09/20 08:16 Dose: 237 ml Documented by: Famotidine (Pepcid) 20 mg PO DAILY [facility] Last Admin: 01/09/20 09:45 Dose: 20 mg Documented by: Vancomycin IV Pharmacy to Dose (1,719 ea/ Sodium Chloride) 500 mls @ 250 mls/hr IV X1 PRN; Protocol PRN Reason: Rx to Dose Cefazolin Sodium () 1 gm in 50 mls @ 100 mls/hr IV Q8 [facility] Last Infusion: 01/09/20 05:53 Dose: Infused Documented by: Vancomycin HCl 1,250 mg/ (Sodium Chloride) 275 mls @ 167 mls/hr IV Q12H [facility] Last Infusion: 01/09/20 00:50 Dose: Infused Documented by: Ketorolac Tromethamine (Toradol (Bkc)) 15 mg IV Q6H PRN PRN PRN Reason: Pain Score 1-5/10 Stop: 01/10/20 12:59 Lisinopril (Zestril) 10 mg PO DAILY [facility] Last Admin: 01/09/20 09:45 Dose: 10 mg Documented by: Meloxicam (Mobic) 7.5 mg PO BID [facility] Last Admin: 01/09/20 09:45 Dose: 7.5 mg Documented by: Morphine Sulfate () 2 - 4 mg IV Q2H PRN PRN PRN Reason: Pain Score 4-10/10 Last Admin: 01/08/20 16:20 Dose: 2 mg Documented by: Ondansetron HCl (Zofran) 4 mg IV Q8H PRN PRN PRN Reason: NAUSEA Oxycodone HCl (Oxyir) 5 - 10 mg PO Q4H PRN PRN PRN Reason: Pain Score 4-10/10 Last Admin: 01/09/20 09:55 Dose: 5 mg Documented by: Promethazine HCl (Phenergan) 12.5 mg IM Q6H PRN PRN; Protocol PRN Reason: NAUSEA/VOMITING Senna/Docusate Sodium (Senokot-S, Claudia-Colace) 2 tablet PO BID [facility] Last Admin: 01/09/20 09:45 Dose: 2 tablet Documented by: Sodium Chloride () 10 - 40 ml IV UD PRN PRN Reason: SALINE FLUSH Last Admin: 01/09/20 06:08 Dose: 10 ml Documented by: Medical Necessity - Tobacco Use Smoking Status: Never smoker Assessment/Plan Postop day 1 irrigation debridement 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 1. Pain control: Continue current regimen pain under control 2. 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 Continue with Ancef and vancomycin. Will await input from infectious disease on further dosing. Appreciate pharmacy's management of vancomycin dose. 3. DVT prophylaxis: Aspirin twice daily 4. PT: Weightbearing as tolerated, protocol per anterior total replacement. 5. Anemia: Related to intraoperative blood loss. We will continue to monitor. 6. Disposition: Patient will need PICC line and IV antibiotics arranged prior to discharge. Will await input from infectious disease for final discharge dosing and antibiotic regimen. Also will need insurance approval. Likely disposition is Saturday or Saturday depending on insurance approval. [facility] Office:
[2020-01-09] MEDS: Morphine 2 MG/ML Syringe IV (11:15)
--- NOTE | 2020-01-09 11:27 | NURSING ---
in to hang antibiotic. discussed pain and pain medication, medicated with morphine. antibiotic initiated and discussed picc line as ordered. emotional support given as pt verbalized frustration for lengthy antibiotic treatment.
--- NOTE | 2020-01-09 11:35 | NURSING ---
batch room technician notified of picc order, stated there is a delay in coverage for the area but as soon as they have someone available to place picc they will give us a call of expected time.
[2020-01-09 12:56] VITALS: BP 131/81; PULSE 97; RESP 18; TEMP 36.6; O2SAT 97
[2020-01-09] MEDS: Ketorolac 15 MG/ML Vial IV (13:00)
--- NOTE | 2020-01-09 16:46 | NURSING ---
called sailing officer aware they are still working on getting a nurse available to place PICC, she is unsure if will be today
[2020-01-09 18:22] VITALS: BP 132/77; PULSE 94; RESP 18; TEMP 37.4; O2SAT 98
[2020-01-09 22:51] LABS: Vancomycin, Trough Level 7.7 ug/mL (5.0-15.0)
--- NOTE | 2020-01-09 23:15 | PCM.RX.CS ---
Consult Pharmacy has been consulted to manage selected antiobiotic: Vancomycin Type of Consult: Follow-up Labs: Sodium 137 mmol/L (136-145) 01/09/20 05:44 Potassium 3.5 mmol/L (3.5-5.1) 01/09/20 05:44 Chloride 104 mmol/L (98-107) 01/09/20 05:44 Carbon Dioxide 27.0 mmol/L (21.0-32.0) 01/09/20 05:44 Anion Gap 6 (5-15) 01/09/20 05:44 BUN 12 mg/dL (7-18) 01/09/20 05:44 Creatinine 0.93 mg/dL (0.70-1.30) 01/09/20 05:44 Est GFR (MDRD) Af Amer 108 mL/min (>60) 01/09/20 05:44 Est GFR (MDRD) Non-Af 89 mL/min (>60) 01/09/20 05:44 BUN/Creatinine Ratio 12.9 RATIO (10-20) 01/09/20 05:44 Glucose 139 mg/dL (74-106) H 01/09/20 05:44 Vancomycin Trough 7.7 ug/mL (5.0-15.0) 01/09/20 22:25 Microbiology: Microbiology 01/08/20 14:28 Blood Culture (Wb) - Anticubital Left Blood Culture - Preliminary 01/08/20 14:32 Blood Culture (Wb) - Left Forearm Blood Culture - Preliminary 01/08/20 13:43 Tissue - Other Gram Stain - Final 01/08/20 13:43 Tissue - Other Wound Culture - Preliminary Staphylococcus aureus 01/08/20 13:00 Tissue - Hip Gram Stain - Final 01/08/20 13:00 Tissue - Hip Wound Culture - Preliminary Staphylococcus aureus 01/08/20 13:00 Tissue - Hip Gram Stain - Final 01/08/20 13:00 Tissue - Hip Wound Culture - Preliminary Staphylococcus aureus 01/08/20 13:00 Tissue - Hip Gram Stain - Final 01/08/20 13:00 Tissue - Hip Wound Culture - Preliminary Staphylococcus aureus 01/08/20 13:00 Tissue - Hip Gram Stain - Final 01/08/20 13:00 Tissue - Hip Wound Culture - Preliminary Staphylococcus aureus Goal Trough: 10-15 mcg/mL Pharmacy Plan for Drug Dosing: Pharmacy Service will continue to monitor and adjust dosing as required. Medications Vancomycin HCl 1,750 mg/ (Sodium Chloride) 535 mls @ 250 mls/hr IV Q12H [facility] TROUGH 7.7 INCREASE TO 1750 Q12H Follow-Up Labs: Trough Vancomycin Labs to be done on [date and time ordered]: 01/10 @ 1030
[2020-01-09 23:57] VITALS: BP 121/70; PULSE 88; RESP 16; TEMP 37.1; O2SAT 95
[2020-01-10] MEDS: Vancomycin IV 500 MG/100 ML BAG 100 MG IV (01:09)
[2020-01-10] MEDS: oxyCODONE 5 MG Tablet PO ×4 (03:02→21:29)
[2020-01-10] MEDS: Acetaminophen 500 MG Tablet 1000 MG PO ×3 (05:42→21:29)
[2020-01-10] MEDS: 0.9% Saline Lock 10 ML Syringe IV (05:43)
[2020-01-10] MEDS: Cefazolin 1 GM/50 ML BAG IV ×3 (05:43→21:53)
[2020-01-10 05:58] VITALS: BP 130/75; PULSE 93; RESP 16; TEMP 37.2; O2SAT 94
[2020-01-10 06:55] LABS: Hematocrit 25.8 % (40-54); Hemoglobin 8.3 g/dL (13.0-16.5); Mean Corp Hgb Conc 32.2 g/dL (32-36); Mean Corpuscular Hgb 29.5 pg (27.0-32.0); Mean Corpuscular Volume 91.8 fL (80-94); Mean Platelet Vol. 9.8 fl (6.2-12.0); Platelet Count 183 K/mm3 (150-450); RBC Distribution Width CV 13.1 % (11.6-14.6); RBC Distribution Width SD 43.8 fl (35.1-43.9); Red Blood Count 2.81 M/mm3 (4.6-6.2); White Blood Count 4.7 K/mm3 (4.4-11.0)
[2020-01-10] MEDS: Ensure Surgery 237 ML LIQUID PO ×2 (08:29→17:09)
[2020-01-10] MEDS: Aspirin 81 MG TAB.CHEW PO ×2 (08:30→21:29)
[2020-01-10] MEDS: Meloxicam 7.5 MG Tablet PO ×2 (08:30→21:29)
[2020-01-10] MEDS: Famotidine 20 MG Tablet PO (08:30)
[2020-01-10] MEDS: Lisinopril 10 MG Tablet PO (08:30)
[2020-01-10] MEDS: BACITRACIN 15 GM Tube 1 APPLIC TOPICAL (08:31)
[2020-01-10 12:00] VITALS: BP 146/77; PULSE 84; RESP 18; TEMP 37.2; O2SAT 96
--- NOTE | 2020-01-10 15:29 | PCM.PN.ORT ---
Subjective: The patient was sitting in bed upon examination. Patient denies any chest pain, shortness of breath, dizziness, lightheadedness, nausea or vomiting, or calf pain. Pain is controlled on medications. No adverse overnight events. Patient currently has wound VAC over right hip incision. Patient states the pain has improved today. Patient did receive a PICC line and is currently on antibiotics. Infectious disease has been consulted and will be seeing the patient tomorrow. We will also need to help get patient set up for home IV antibiotics. Objective: Vital signs stable and afebrile. Patient is able to plantarflex and dorsiflex actively. Sensation is intact to light touch to saphenous, sural, superficial and deep peroneal, and tibial distribution. Wound VAC in place with minimal drainage over the dressing Right thigh with swelling but is soft and supple with improved erythema Negative Homans bilaterally, negative signs and symptoms of DVT. - Physical Exam Vitals/I&O's: Vital Signs Temp Pulse Resp BP Pulse Ox 98.9 F 84 18 146/77 H 96 01/10/20 12:00 01/10/20 12:00 01/10/20 12:00 01/10/20 12:00 01/10/20 12:00 Oxygen Delivery Method Room Air Weight: 114.6 kg Body Mass Index (BMI) 32.4 Intake and Output for Last 24 Hours 01/08/20 01/09/20 01/10/20 23:59 23:59 23:59 Intake Total 7992.08 / 7992.08 3130.50 / 3630.50 2234.25 / 2234.25 Balance 7992.08 / 7992.08 3130.50 / 3630.50 2234.25 / 2234.25 General: Alert, Oriented x3, Cooperative, No apparent distress Microbiology Past 72 Hours 01/08/20 14:32 Blood Culture (Wb) - Left Forearm Blood Culture - Preliminary Staphylococcus aureus 01/08/20 14:28 Blood Culture (Wb) - Anticubital Left Bacteria Detection (PCR) - Final Staphylococcus aureus 01/08/20 14:28 Blood Culture (Wb) - Anticubital Left Blood Culture - Preliminary Staphylococcus aureus 01/08/20 13:00 Tissue - Hip Gram Stain - Final 01/08/20 13:00 Tissue - Hip Wound Culture - Final Staphylococcus aureus 01/08/20 13:00 Tissue - Hip Gram Stain - Final 01/08/20 13:00 Tissue - Hip Wound Culture - Final Staphylococcus aureus 01/08/20 13:43 Tissue - Other Gram Stain - Final 01/08/20 13:43 Tissue - Other Wound Culture - Final Staphylococcus aureus 01/08/20 13:00 Tissue - Hip Gram Stain - Final 01/08/20 13:00 Tissue - Hip Wound Culture - Final Staphylococcus aureus 01/08/20 13:00 Tissue - Hip Gram Stain - Final 01/08/20 13:00 Tissue - Hip Wound Culture - Final Staphylococcus aureus Laboratory Results 01/09/20 22:25: Vancomycin Trough 7.7 01/10/20 05:26: WBC 4.7, RBC 2.81 L, Hgb 8.3 L, Hct 25.8 L, MCV 91.8, MCH 29.5, MCHC 32.2, RDW Std Deviation 43.8, RDW Coeff of Chely 13.1, Plt Count 183, MPV 9.8 Current Medications Acetaminophen (Tylenol) 1,000 mg PO Q8 [facility] Last Admin: 01/10/20 13:11 Dose: 1,000 mg Documented by: Aspirin (Aspirin, Baby) 81 mg PO BID [facility] Last Admin: 01/10/20 08:30 Dose: 81 mg Documented by: Bacitracin (Bacitracin Ointment) 1 applic TOPICAL DAILY [facility]; Protocol Last Admin: 01/10/20 08:31 Dose: 1 applicatio Documented by: Enteral Nutritional Formula (Ensure Surgery) 237 ml PO TIDCM [facility] Last Admin: 01/10/20 12:20 Dose: Not Given Documented by: Famotidine (Pepcid) 20 mg PO DAILY [facility] Last Admin: 01/10/20 08:30 Dose: 20 mg Documented by: Vancomycin IV Pharmacy to Dose (1,719 ea/ Sodium Chloride) 500 mls @ 250 mls/hr IV X1 PRN; Protocol PRN Reason: Rx to Dose Cefazolin Sodium () 1 gm in 50 mls @ 100 mls/hr IV Q8 [facility] Last Admin: 01/10/20 15:10 Dose: 100 mls/hr Documented by: Sodium Chloride () 250 mls @ 15 mls/hr IV .[id number] PRN PRN Reason: Saline Flush Last Infusion: 01/10/20 13:14 Dose: 0 mls/hr Documented by: Sodium Chloride () 250 mls @ 15 mls/hr IV .[id number] PRN PRN Reason: Additional IVPB Infusion Vancomycin HCl 1,750 mg/ (Sodium Chloride) 535 mls @ 250 mls/hr IV Q12H [facility] Last Infusion: 01/10/20 15:07 Dose: Infused Documented by: Lisinopril (Zestril) 10 mg PO DAILY [facility] Last Admin: 01/10/20 08:30 Dose: 10 mg Documented by: Meloxicam (Mobic) 7.5 mg PO BID [facility] Last Admin: 01/10/20 08:30 Dose: 7.5 mg Documented by: Morphine Sulfate () 2 - 4 mg IV Q2H PRN PRN PRN Reason: Pain Score 4-10/10 Last Admin: 01/09/20 11:15 Dose: 4 mg Documented by: Ondansetron HCl (Zofran) 4 mg IV Q8H PRN PRN PRN Reason: NAUSEA Oxycodone HCl (Oxyir) 5 - 10 mg PO Q4H PRN PRN PRN Reason: Pain Score 4-10/10 Last Admin: 01/10/20 08:46 Dose: 5 mg Documented by: Promethazine HCl (Phenergan) 12.5 mg IM Q6H PRN PRN; Protocol PRN Reason: NAUSEA/VOMITING Senna/Docusate Sodium (Senokot-S, Claudia-Colace) 2 tablet PO BID [facility] Last Admin: 01/10/20 08:31 Dose: Not Given Documented by: Sodium Chloride () 10 - 40 ml IV UD PRN PRN Reason: SALINE FLUSH Last Admin: 01/10/20 05:43 Dose: 10 ml Documented by: Sodium Chloride () 10 - 40 ml IV UD PRN PRN Reason: SALINE FLUSH Medical Necessity - Tobacco Use Smoking Status: Never smoker Assessment/Plan 1. 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 Continue Pain Medications: Tylenol, meloxicam, OxyIR 3. DVT Prophylaxis: Take 81 mg aspirin twice daily for 4 weeks postoperatively for DVT prophylaxis 4. PT/OT: Weightbearing as tolerated, protocol per anterior total hip replacement 5. H & H: 8.3/25.8, asymptomatic. Anemia secondary to intraoperative blood loss. Will continue to monitor. Patient's vitals are within normal limits and there is been no dizziness or lightheadedness. 7. Continue antibiotics: Consult for infectious disease has been placed and appreciate input for final discharge dosing and regimen. Patient has received his PICC line. Currently on Ancef and vancomycin. 8. Encouraged Incentive Spirometry 9. Disposition: Plan will be for possible discharge home Saturday or Saturday depending upon insurance approval and management of antibiotics. We will continue to monitor hemoglobin. We will continue with current pain med regimen as pain is been well controlled. Continue to watch swelling in the thigh.
[2020-01-10 17:13] VITALS: BP 132/80; PULSE 88; RESP 18; TEMP 37.6; O2SAT 95
[2020-01-10] MEDS: Senna/Docusate Sodium 1 Tablet 2 TABLET PO (21:29)
[2020-01-10 23:00] VITALS: BP 132/73; PULSE 87; RESP 18; TEMP 37.4; O2SAT 94
--- NOTE | 2020-01-10 23:13 | ECHOD_ITS ---
Reason For Study: Murmur Procedure This was a 2D Doppler, Color Flow transthoracic echocardiogram. Exam performed portable in patient room. Left Ventricle Normal LV size. Moderate concentric left ventricular hypertrophy. Left ventricular systolic function is normal. The estimated ejection fraction is 65 %. No regional wall motion abnormalities noted. Right Ventricle Normal RV size. Normal systolic function. Atria Normal left atrium. Normal right atrium. Mitral Valve Normal mitral valve. Tricuspid Valve Normal tricuspid valve. Mild (1+) tricuspid valve insufficiency. Pulmonary artery systolic pressure is 35 mmHg. Aortic Valve Trisinus/trileaflet aortic valve. Mild (1+) eccentric aortic valve insufficiency. Pulmonic Valve Normal pulmonic valve. Great Vessels Normal aortic root. The pulmonary artery is normal size. Normal inferior vena cava. Pericardium/Pleural No pericardial effusion. MMode/2D Measurements & Calculations LVIDd: 4.9 cm IVSd: 1.8 cm LA dimension: 4.4 cm LVIDs: 2.8 cm LVPWd: 1.5 cm FS: 42.3 % LAV(MOD-bp): 63.6 ml LA A4 area: 22.7 cm2 RA A4 area: 16.6 cm2 LAV(MOD-bp) Indexed: 26.6 ml/m2 LAV(MOD-sp2): 59.4 ml LAV(MOD-sp4): 75.5 ml Time Measurements MV dec time: 0.19 sec Doppler Measurements & Calculations MV E max michael: 116.2 cm/sec Lat Peak E' Michael: 10.7 cm/sec Med Peak E' Michael: 14.7 cm/sec MV A max michael: 62.2 cm/sec E/E' lat: 10.8 E/E' med: 7.9 MV E/A: 1.9 MV V2 max: 134.8 cm/sec MV P1/2t max michael: 136.8 cm/sec Ao V2 max: 142.4 cm/sec MV max P.3 mmHg MV P1/2t: 55.3 msec Ao max P.1 mmHg MV V2 mean: 63.8 cm/sec MV dec slope: 724.2 cm/sec2 MV mean P.0 mmHg MVA(P1/2t): 4.0 cm2 MV V2 VTI: 28.4 cm AI max michael: 408.4 cm/sec LV V1 max: 131.4 cm/sec PA V2 max: 103.0 cm/sec AI max P.8 mmHg LV V1 max P.9 mmHg AI dec slope: 264.3 cm/sec2 AI P1/2t: 452.6 msec TR max michael: 282.5 cm/sec TR max P.9 mmHg Interpretation Summary Normal LV size. Moderate concentric left ventricular hypertrophy. Left ventricular systolic function is normal. The estimated ejection fraction is 65 %. Mild (1+) tricuspid valve insufficiency. Mild (1+) eccentric aortic valve insufficiency. Ordering Physician: Ramses Segundo Referring Physician: Juan Hunt Performed By: Eric Negron RCS
[2020-01-11 04:19] VITALS: BP 149/80; PULSE 94; RESP 18; TEMP 36.7; O2SAT 96
[2020-01-11] MEDS: Acetaminophen 500 MG Tablet 1000 MG PO ×3 (05:36→22:20)
[2020-01-11] MEDS: oxyCODONE 5 MG Tablet PO ×2 (05:36→18:22)
[2020-01-11] MEDS: 0.9% Saline Lock 10 ML Syringe IV (05:37)
[2020-01-11] MEDS: Cefazolin 2 GM in 0.9% Normal Saline 100 ML IV ×3 (05:37→22:21)
[2020-01-11 05:45] LABS: Hematocrit 24.5 % (40-54); Hemoglobin 7.9 g/dL (13.0-16.5); Mean Corp Hgb Conc 32.2 g/dL (32-36); Mean Corpuscular Hgb 29.5 pg (27.0-32.0); Mean Corpuscular Volume 91.4 fL (80-94); Mean Platelet Vol. 8.7 fl (6.2-12.0); Platelet Count 174 K/mm3 (150-450); RBC Distribution Width CV 13.2 % (11.6-14.6); RBC Distribution Width SD 44.2 fl (35.1-43.9); Red Blood Count 2.68 M/mm3 (4.6-6.2); White Blood Count 5.7 K/mm3 (4.4-11.0)
[2020-01-11 06:04] LABS: AST(SGOT) 60 U/L (15-37); Alanine Aminotransfer ALT/SGPT 69 U/L (16-61); Albumin, Serum 1.9 g/dL (3.2-5.0); Alkaline Phosphatase 156 U/L (45-117); Anion Gap 7 (5-15); BUN 16 mg/dL (7-18); Bilirubin, Direct 0.35 mg/dL (0.00-0.30); Calcium,Total 8.2 mg/dL (8.5-10.1); Chloride 103 mmol/L (98-107); Creatinine, Serum 0.84 mg/dL (0.70-1.30); EST Glomerular Filtration Rate 100 mL/min (>60); Est Glom Filt Rate - Afr Amer 121 mL/min (>60); Estimated Creatinine Clearance 114.17 ml/min; Globulin 3.9 g/dL (2.2-4.2); Glucose 121 mg/dL (74-106); Potassium 3.3 mmol/L (3.5-5.1); Protein, Total 5.8 g/dL (6.4-8.2); Sodium Level 138 mmol/L (136-145)
--- NOTE | 2020-01-11 07:14 | DCINST_ITS ---
Discharge Diet: No Restrictions Discharge Activity: May Not Drive - while taking narcotic pain medications. Ice area for (Minutes): 20 - Every 1-2 hours while awake Weight Bearing Status: Weight bearing as tolerated Elevate: Operative Extremity Additional Activity Instructions:: Wear elastic stockings for 2 weeks. DO NOT use alcohol with narcotic pain medication. DO NOT make important decisions while taking narcotic medication. If you have problems with taking your medication (rash, itching, nausea, etc.) call the office at once. Call your doctor if your incision/area has: Increased Pain/ Swelling, Increased Redness, Foul Smelling Discharge Call your doctor if you observe: Fever of 101 or Higher Additional Instructions: Pain medications: Continue with extra strength Tylenol 500 mg 2 tablets 3 times daily and [id number] Aleve 1 tablet twice daily with food for primary pain control. Only use oxycodone for breakthrough pain. Continue with wound VAC until postoperative visit at [facility] [place] Continue with IV antibiotics per infectious disease. Will need follow-up with infectious disease postoperatively Allergies/Adverse Reactions: Allergies No Known Allergies Allergy (Verified 01/07/20 18:03) Medications to take at Discharge Lisinopril [Zestril] 10 mg PO DAILY 01/07/20 Naproxen [Naprosyn] 500 mg PO DAILY PRN PRN 01/07/20 Oxycodone HCl 5 - 10 mg PO Q4H PRN PRN 5 Days #60 tab 01/11/20 Acetaminophen [Tylenol] 1,000 mg PO Q8 tab 01/12/20 Aspirin [Aspirin, Baby] 81 mg PO BID tab.chew 01/12/20 Cefazolin 2 gm IV Q8 #0 vial 01/12/20 Senna/Docusate Sodium [Senokot-S] 2 tab PO BID tab 01/12/20 The following prescriptions were given: Oxycodone HCl 5 - 10 mg PO Q4H PRN PRN 5 Days #60 tab PRN Reason: Pain Score 6-10/10 Transmission Status: Received by [facility]/pharmacy #[id number] Primary Care Physician: Juan Hunt MD [Primary Care Provider] - Test Results: Test results from this visit will be discussed in further detail at your follow- up appointment, if applicable. Please Follow Up With: Matthew Rivas PA-C When: 01/14/20 Please Follow Up With: Ramses Segundo MD When: will require 1-2 week follow up with infectious disease
--- NOTE | 2020-01-11 07:14 | PCM.PN.ORT ---
Subjective: Patient is doing well. No acute events overnight. Patient had a number of questions yesterday while the physician access services assistant was rounding. We had at bedside today and attempted to answer all questions appropriately. We again discussed the natural history of infections after total joint replacement. We discussed the nature of the treatment. We will await infectious disease input today. He is been managed on Ancef and vancomycin. IV antibiotics will likely need to be adjusted prior to discharge. PICC line is been placed. Overall patient is faring well. Hemoglobin is 7.9 however patient is asymptomatic. Objective: Cultures and tissue cultures are all MSSA positive. - Physical Exam Vitals/I&O's: Vital Signs Temp Pulse Resp BP Pulse Ox 98.0 F 94 18 149/80 H 96 01/11/20 04:19 01/11/20 04:19 01/11/20 04:19 01/11/20 04:19 01/11/20 04:19 Oxygen Delivery Method Room Air Weight: 252 lb 10.396 oz Body Mass Index (BMI) 32.4 Intake and Output for Last 24 Hours 01/09/20 01/10/20 01/11/20 23:59 23:59 23:59 Intake Total 3130.50 / 3630.50 2793.00 / 3393.00 900 / 900 Balance 3130.50 / 3630.50 2793.00 / 3393.00 900 / 900 General: Alert, Oriented x3, Cooperative Extremities: - - Left lower extremity: Dressing is intact there is a small area of saturation minimally expanding over the last 24 hours in the distal portion of the dressing. VAC suction is intact. Sensations intact to light touch saphenous, sural, superficial peroneal, deep peroneal, and tibial distributions Motors intact EHL, DF, PF calves are soft and supple Microbiology Past 72 Hours 01/08/20 14:32 Blood Culture (Wb) - Left Forearm Blood Culture - Preliminary Staphylococcus aureus 01/08/20 14:28 Blood Culture (Wb) - Anticubital Left Bacteria Detection (PCR) - Final Staphylococcus aureus 01/08/20 14:28 Blood Culture (Wb) - Anticubital Left Blood Culture - Preliminary Staphylococcus aureus 01/08/20 13:00 Tissue - Hip Gram Stain - Final 01/08/20 13:00 Tissue - Hip Wound Culture - Final Staphylococcus aureus 01/08/20 13:00 Tissue - Hip Gram Stain - Final 01/08/20 13:00 Tissue - Hip Wound Culture - Final Staphylococcus aureus 01/08/20 13:43 Tissue - Other Gram Stain - Final 01/08/20 13:43 Tissue - Other Wound Culture - Final Staphylococcus aureus 01/08/20 13:00 Tissue - Hip Gram Stain - Final 01/08/20 13:00 Tissue - Hip Wound Culture - Final Staphylococcus aureus 01/08/20 13:00 Tissue - Hip Gram Stain - Final 01/08/20 13:00 Tissue - Hip Wound Culture - Final Staphylococcus aureus Laboratory Results 01/11/20 05:40: WBC 5.7, RBC 2.68 L, Hgb 7.9 L, Hct 24.5 L, MCV 91.4, MCH 29.5, MCHC 32.2, RDW Std Deviation 44.2 H, RDW Coeff of Chely 13.2, Plt Count 174, MPV 8.7 01/11/20 05:40: Sodium 138, Potassium 3.3 L, Chloride 103, Carbon Dioxide 28.0, Anion Gap 7, BUN 16, Creatinine 0.84, Estim Creat Clear Calc 114.17, Est GFR (MDRD) Af Amer 121, Est GFR (MDRD) Non-Af 100, BUN/Creatinine Ratio 19.0, Glucose 121 H, Calcium 8.2 L, Total Bilirubin 0.90, Direct Bilirubin 0.35 H, AST 60 H, ALT 69 H, Alkaline Phosphatase 156 H, Total Protein 5.8 L, Albumin 1.9 L, Globulin 3.9 Current Medications Acetaminophen (Tylenol) 1,000 mg PO Q8 [facility] Last Admin: 01/11/20 05:36 Dose: 1,000 mg Documented by: Aspirin (Aspirin, Baby) 81 mg PO BID [facility] Last Admin: 01/10/20 21:29 Dose: 81 mg Documented by: Bacitracin (Bacitracin Ointment) 1 applic TOPICAL DAILY [facility]; Protocol Last Admin: 01/10/20 08:31 Dose: 1 applicatio Documented by: Enteral Nutritional Formula (Ensure Surgery) 237 ml PO TIDCM [facility] Last Admin: 01/10/20 17:09 Dose: 237 ml Documented by: Famotidine (Pepcid) 20 mg PO DAILY [facility] Last Admin: 01/10/20 08:30 Dose: 20 mg Documented by: Sodium Chloride () 250 mls @ 15 mls/hr IV .[id number] PRN PRN Reason: Saline Flush Last Infusion: 01/10/20 22:30 Dose: 0 mls/hr Documented by: Sodium Chloride () 250 mls @ 15 mls/hr IV .[id number] PRN PRN Reason: Additional IVPB Infusion Cefazolin Sodium 2 gm/ Sodium (Chloride) 110 mls @ 150 mls/hr IV Q8 [facility] Last Admin: 01/11/20 05:37 Dose: 150 mls/hr Documented by: Lisinopril (Zestril) 10 mg PO DAILY [facility] Last Admin: 01/10/20 08:30 Dose: 10 mg Documented by: Meloxicam (Mobic) 7.5 mg PO BID [facility] Last Admin: 01/10/20 21:29 Dose: 7.5 mg Documented by: Morphine Sulfate () 2 - 4 mg IV Q2H PRN PRN PRN Reason: Pain Score 4-10/10 Last Admin: 01/09/20 11:15 Dose: 4 mg Documented by: Ondansetron HCl (Zofran) 4 mg IV Q8H PRN PRN PRN Reason: NAUSEA Oxycodone HCl (Oxyir) 5 - 10 mg PO Q4H PRN PRN PRN Reason: Pain Score 4-10/10 Last Admin: 01/11/20 05:36 Dose: 10 mg Documented by: Promethazine HCl (Phenergan) 12.5 mg IM Q6H PRN PRN; Protocol PRN Reason: NAUSEA/VOMITING Senna/Docusate Sodium (Senokot-S, Chayo-Colace) 2 tablet PO BID [facility] Last Admin: 01/10/20 21:29 Dose: 2 tablet Documented by: Sodium Chloride () 10 - 40 ml IV UD PRN PRN Reason: SALINE FLUSH Last Admin: 01/11/20 05:37 Dose: 10 ml Documented by: Sodium Chloride () 10 - 40 ml IV UD PRN PRN Reason: SALINE FLUSH Medical Necessity - Tobacco Use Smoking Status: Never smoker Assessment/Plan Postop day 3 irrigation debridement 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 1. Pain control: Continue current regimen pain under control 2. PJI: Cultures consistently show staph aureus pansensitive. Continue with Ancef and vancomycin. Will await input from infectious disease on further dosing. Appreciate pharmacy's management of vancomycin dose. blood ctx positive, awaiting ID input. 3. DVT prophylaxis: Aspirin twice daily 4. PT: Weightbearing as tolerated, protocol per anterior total replacement. 5. Anemia: Related to chayo-operative blood loss. We will continue to monitor. 6. Disposition: Patient will has PICC line and IV antibiotics will need to be arranged prior to discharge. Will await input from infectious disease for final discharge dosing and antibiotic regimen. Also will need insurance approval. Likely disposition is today or tomorrow depending on insurance approval and further ID work-up. [facility] Office:
[2020-01-11] MEDS: Ensure Surgery 237 ML LIQUID PO ×3 (08:39→17:27)
[2020-01-11] MEDS: Meloxicam 7.5 MG Tablet PO ×2 (08:40→22:20)
[2020-01-11] MEDS: Aspirin 81 MG TAB.CHEW PO ×2 (08:40→22:21)
[2020-01-11] MEDS: Famotidine 20 MG Tablet PO (08:41)
[2020-01-11] MEDS: BACITRACIN 15 GM Tube 1 APPLIC TOPICAL (08:41)
[2020-01-11] MEDS: Senna/Docusate Sodium 1 Tablet 2 TABLET PO (08:41)
[2020-01-11] MEDS: Lisinopril 10 MG Tablet PO (08:41)
[2020-01-11 08:56] VITALS: BP 162/78; PULSE 87; RESP 18; TEMP 36.7; O2SAT 98
--- NOTE | 2020-01-11 10:00 | CASEMGMT ---
JENA BANKS Face to Face with patient for initial transition planning/care coordination assessment. RN DARREN introduced self and role at [facility]. Patient sitting in chair, alert and oriented. Patient willing to participate in assessment and is able to answer all questions appropriately. Care providers, pharmacy, and demographics verified. Patient wishes to discharge home with HHC for IV ATBs. RN DARREN provided list for HHC and infusion companies to patient to review. Patient states he has no further needs or concerns at this time. CM to follow for discharge planning needs that may arise. PCP: [facility] Specialists: shaw Quinn Preferred Pharmacy: [facility] Insurance: [employer] Prescription Benefit: yes Living Will/HPOA: none LNOK: Living Arrangements: Patient lives with in 2 story home on bed and bath on first floor. Patient states he is independent at home. 3 steps and railing to enter the home. Transportation: DME/HHC: Patient states he has shower chair, cane, walker, raised toilet seat, and grab bars. Patient was [facility] to [facility] for outpatient therapy. [facility]. Disposition Plan: Patient to discharge home with HHC, family support, and follow-up plans in place. Felicity DURAN, RN, CM
--- NOTE | 2020-01-11 13:30 | CASEMGMT ---
JENA BANKS sent referrals to [facility] and [facility]. JENA BANKS awaiting call back with assistance. RN DARREN will continue to follow this patient and plan for a safe discharge.
--- NOTE | 2020-01-11 14:02 | PCM.HP.ID ---
Reason for Consult: Right prosthetic hip infection with MSSA, bacteremia Consulted by: Dr. Linus Quinn History of Present Illness: The patient is a 54 year old M [] This is a 54-year-old gentleman with a past medical history of osteoarthritis who underwent right total hip arthroplasty on December 07. Patient was doing well postop until Saturday of last week when he developed acute onset of fever chills and right hip pain. Patient was then seen by orthopedic physician who performed a diagnostic right hip aspirate that was purulent. Patient was brought to the hospital and underwent surgical debridement of her right hip with appeared to be a 1 stage exchange arthroplasty on January 07. Blood cultures are growing MSSA as well as the intraoperative culture from January 07 of the right hip. Patient is currently on Ancef 2 g IV every 8 hours and clinically doing well. No cardiopulmonary distress no gastrointestinal symptoms. Patient had no active symptoms prior to Saturday of last . Surface echocardiogram report reviewed. Most recent blood culture from yesterday evening is pending. - Medical History Allergies/Adverse Reactions: Allergies No Known Allergies Allergy (Verified 01/07/20 18:03) Home Medications: Ambulatory Orders Medication Instructions Recorded Acetaminophen [Tylenol Extra 1,000 mg PO Q6H PRN PRN 01/07/20 Strength] Lisinopril [Zestril] 10 mg PO DAILY 01/07/20 Multivitamin 1 ea PO DAILY 01/07/20 Naproxen [Naprosyn] 500 mg PO DAILY PRN PRN 01/07/20 Oxycodone HCl 10 mg PO BID 01/07/20 Oxycodone HCl 5 - 10 mg PO Q4H PRN PRN 5 Days 01/11/20 #60 tab Review of Systems Comment: As stated in history of present illness others negative Vital Signs Temp Pulse Resp BP Pulse Ox 98.1 F 87 18 162/78 H 98 01/11/20 08:56 01/11/20 08:56 01/11/20 08:56 01/11/20 08:56 01/11/20 08:56 Oxygen Delivery Method Room Air Weight: 114.6 kg Body Mass Index (BMI) 32.4 Alert and oriented does not appear toxic lungs are clear heart exam S1-S2 no murmurs appreciated abdomen soft nontender right hip dressings are in place as well as appears to be wound VAC. Microbiology Past 72 Hours 01/08/20 13:43 Gram Stain - Final Tissue - Other Wound Culture - Final Staphylococcus aureus Anaerobic Culture - Final No anaerobic bacteria isolated. 01/08/20 13:00 Gram Stain - Final Tissue - Hip Wound Culture - Final Staphylococcus aureus Anaerobic Culture - Final No anaerobic bacteria isolated. 01/08/20 13:00 Gram Stain - Final Tissue - Hip Wound Culture - Final Staphylococcus aureus Anaerobic Culture - Final No anaerobic bacteria isolated. 01/08/20 13:00 Gram Stain - Final Tissue - Hip Wound Culture - Final Staphylococcus aureus Anaerobic Culture - Final No anaerobic bacteria isolated. 01/08/20 13:00 Gram Stain - Final Tissue - Hip Wound Culture - Final Staphylococcus aureus Anaerobic Culture - Final No anaerobic bacteria isolated. 01/08/20 14:32 Blood Culture - Preliminary Blood Culture (Wb) - Left Forearm Staphylococcus aureus 01/08/20 14:28 Bacteria Detection (PCR) - Final Blood Culture (Wb) - Anticubital Left Staphylococcus aureus Blood Culture - Preliminary Staphylococcus aureus Laboratory Tests Past 24 Hrs 01/11/20 01/11/20 05:40 05:40 WBC 5.7 RBC 2.68 L Hgb 7.9 L Hct 24.5 L MCV 91.4 MCH 29.5 MCHC 32.2 RDW Std Deviation 44.2 H RDW Coeff of Chely 13.2 Plt Count 174 MPV 8.7 Sodium 138 Potassium 3.3 L Chloride 103 Carbon Dioxide 28.0 Anion Gap 7 BUN 16 Creatinine 0.84 Estim Creat Clear Calc 114.17 Est GFR (MDRD) Af Amer 121 Est GFR (MDRD) Non-Af 100 BUN/Creatinine Ratio 19.0 Glucose 121 H Calcium 8.2 L Total Bilirubin 0.90 Direct Bilirubin 0.35 H AST 60 H ALT 69 H Alkaline Phosphatase 156 H Total Protein 5.8 L Albumin 1.9 L Globulin 3.9 - Other Studies Radiology: [] Other Studies: [] Route of nutrition/ use of supplements: [] Nutritional Intake: [] IV Site: [] Mendoza Catheter: [] - Assessment/Plan Antibiotics: [] Assessment/Plan: [] 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 Will treat with long-term Ancef 2 g IV every 8 hours and closely follow his clinical course as an outpatient. Also obtain weekly blood work. Plan is to continue Ancef 2 g IV every 8 hours through February 21.
[2020-01-11 15:04] VITALS: BP 151/74; PULSE 97; RESP 18; TEMP 36.8; O2SAT 98
--- NOTE | 2020-01-11 15:44 | NURSING ---
wound photo: right anterior hip
[2020-01-11 22:44] VITALS: BP 153/80; PULSE 84; RESP 18; TEMP 37.2; O2SAT 93
[2020-01-12 03:33] VITALS: BP 152/82; PULSE 97; RESP 18; TEMP 36.8; O2SAT 93
[2020-01-12] MEDS: Cefazolin 2 GM in 0.9% Normal Saline 100 ML IV (05:56)
[2020-01-12] MEDS: Acetaminophen 500 MG Tablet 1000 MG PO (05:56)
[2020-01-12] MEDS: 0.9% Saline Lock 10 ML Syringe IV ×2 (06:04→07:15)
--- NOTE | 2020-01-12 07:13 | PCM.PN.ORT ---
Subjective: The patient was sitting in bed upon examination. Patient denies any chest pain, shortness of breath, dizziness, lightheadedness, nausea or vomiting, or calf pain. Pain is controlled on medications. No adverse overnight events. Patient has tolerated physical therapy very well. Infectious disease has also recommended IV antibiotic Ancef every 8 hours. Patient will be getting home health care for IV antibiotics. Patient did have to have wound VAC switched over as there was drainage yesterday. Drainage was bloody on discharge. Currently there is wound VAC with no drainage in canister or tubing. Patient's thigh continues to improve with swelling and no erythema. Objective: Vital signs stable and afebrile. Patient is able to plantarflex and dorsiflex actively. Sensation is intact to light touch to saphenous, sural, superficial and deep peroneal, and tibial distribution. Dressing is clean dry and intact. Wound VAC in place with no drainage in tubing or canister. Patient's thigh continues to improve from swelling and there is no erythema. Thigh is soft and supple Negative Homans bilaterally, negative signs and symptoms of DVT. - Physical Exam Vitals/I&O's: Vital Signs Temp Pulse Resp BP Pulse Ox 98.2 F 97 18 152/82 H 93 01/12/20 03:33 01/12/20 03:33 01/12/20 03:33 01/12/20 03:33 01/12/20 03:33 Oxygen Delivery Method Room Air Weight: 114.6 kg Body Mass Index (BMI) 32.4 Intake and Output for Last 24 Hours 01/10/20 01/11/20 01/12/20 23:59 23:59 23:59 Intake Total 2793.00 / 3393.00 2209.75 / 2819.75 810 / 810 Balance 2793.00 / 3393.00 2209.75 / 2819.75 810 / 810 General: Alert, Oriented x3, Cooperative, No apparent distress Microbiology Past 72 Hours 01/08/20 13:43 Tissue - Other Gram Stain - Final 01/08/20 13:43 Tissue - Other Wound Culture - Final Staphylococcus aureus 01/08/20 13:43 Tissue - Other Anaerobic Culture - Final No anaerobic bacteria isolated. 01/08/20 13:00 Tissue - Hip Gram Stain - Final 01/08/20 13:00 Tissue - Hip Wound Culture - Final Staphylococcus aureus 01/08/20 13:00 Tissue - Hip Anaerobic Culture - Final No anaerobic bacteria isolated. 01/08/20 13:00 Tissue - Hip Gram Stain - Final 01/08/20 13:00 Tissue - Hip Wound Culture - Final Staphylococcus aureus 01/08/20 13:00 Tissue - Hip Anaerobic Culture - Final No anaerobic bacteria isolated. 01/08/20 13:00 Tissue - Hip Gram Stain - Final 01/08/20 13:00 Tissue - Hip Wound Culture - Final Staphylococcus aureus 01/08/20 13:00 Tissue - Hip Anaerobic Culture - Final No anaerobic bacteria isolated. 01/08/20 13:00 Tissue - Hip Gram Stain - Final 01/08/20 13:00 Tissue - Hip Wound Culture - Final Staphylococcus aureus 01/08/20 13:00 Tissue - Hip Anaerobic Culture - Final No anaerobic bacteria isolated. 01/08/20 14:32 Blood Culture (Wb) - Left Forearm Blood Culture - Preliminary Staphylococcus aureus 01/08/20 14:28 Blood Culture (Wb) - Anticubital Left Bacteria Detection (PCR) - Final Staphylococcus aureus 01/08/20 14:28 Blood Culture (Wb) - Anticubital Left Blood Culture - Preliminary Staphylococcus aureus Current Medications Acetaminophen (Tylenol) 1,000 mg PO Q8 [facility] Last Admin: 01/12/20 05:56 Dose: 1,000 mg Documented by: Aspirin (Aspirin, Baby) 81 mg PO BID [facility] Last Admin: 01/11/20 22:21 Dose: 81 mg Documented by: Bacitracin (Bacitracin Ointment) 1 applic TOPICAL DAILY [facility]; Protocol Last Admin: 01/11/20 08:41 Dose: 1 applicatio Documented by: Enteral Nutritional Formula (Ensure Surgery) 237 ml PO TIDCM [facility] Last Admin: 01/11/20 17:27 Dose: 237 ml Documented by: Famotidine (Pepcid) 20 mg PO DAILY [facility] Last Admin: 01/11/20 08:41 Dose: 20 mg Documented by: Sodium Chloride () 250 mls @ 15 mls/hr IV .[id number] PRN PRN Reason: Saline Flush Last Infusion: 01/11/20 09:00 Dose: 0 mls/hr Documented by: Sodium Chloride () 250 mls @ 15 mls/hr IV .[id number] PRN PRN Reason: Additional IVPB Infusion Cefazolin Sodium 2 gm/ Sodium (Chloride) 110 mls @ 150 mls/hr IV Q8 [facility] Last Admin: 01/12/20 05:56 Dose: 150 mls/hr Documented by: Lisinopril (Zestril) 10 mg PO DAILY [facility] Last Admin: 01/11/20 08:41 Dose: 10 mg Documented by: Meloxicam (Mobic) 7.5 mg PO BID [facility] Last Admin: 01/11/20 22:20 Dose: 7.5 mg Documented by: Morphine Sulfate () 2 - 4 mg IV Q2H PRN PRN PRN Reason: Pain Score 4-10/10 Last Admin: 01/09/20 11:15 Dose: 4 mg Documented by: Ondansetron HCl (Zofran) 4 mg IV Q8H PRN PRN PRN Reason: NAUSEA Oxycodone HCl (Oxyir) 5 - 10 mg PO Q4H PRN PRN PRN Reason: Pain Score 4-10/10 Last Admin: 01/11/20 18:22 Dose: 10 mg Documented by: Promethazine HCl (Phenergan) 12.5 mg IM Q6H PRN PRN; Protocol PRN Reason: NAUSEA/VOMITING Senna/Docusate Sodium (Senokot-S, Claudia-Colace) 2 tablet PO BID [facility] Last Admin: 01/11/20 22:20 Dose: Not Given Documented by: Sodium Chloride () 10 - 40 ml IV UD PRN PRN Reason: SALINE FLUSH Last Admin: 01/12/20 06:04 Dose: 10 ml Documented by: Sodium Chloride () 10 - 40 ml IV UD PRN PRN Reason: SALINE FLUSH Medical Necessity - Tobacco Use Smoking Status: Never smoker Assessment/Plan 1. 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 Continue Pain Medications: Tylenol, meloxicam, OxyIR 3. DVT Prophylaxis: Take 81 mg aspirin twice daily for 4 weeks postoperatively for DVT prophylaxis 4. PT/OT: Weightbearing as tolerated, protocol per anterior total hip replacement 5. H & H: Lab work was just obtained, currently waiting on results. Anemia secondary to intraoperative blood loss. Will continue to monitor. Patient's vitals are within normal limits and there is been no dizziness or lightheadedness. 7. Continue antibiotics: Infectious disease recommends Ancef 2 g IV every 8 hours with weekly blood work. We will continue with IV Ancef through February 22, 2020. 8. Encouraged Incentive Spirometry 9. Continue with wound VAC. Paperwork has been signed and patient will be discharged home with wound VAC. 10. Disposition: Plan will be for possible discharge home today as long as insurance is approved home health and wound VAC. Also will need to assess lab work prior to discharge. Patient's pain medication oxycodone has already been sent to pharmacy. Patient will continue with ice and elevation at home. We will follow him on January wound check and skin check. Patient will continue with Tylenol and use [id number] Aleve 1 tablet twice daily at home. Continue with aspirin twice daily for DVT prophylaxis. Patient will also require follow-up with infectious disease in 1-2 weeks I have reviewed the [place] Automated Rx Reporting System (OARRS) report for this patient for refill pattern and other prescriber involvement as part of the appropriate surveillance for the provision of acute and chronic controlled medications. The report was requested and reviewed on the date of this entry and was considered in the prescribing process.
[2020-01-12 07:22] LABS: Hematocrit 24.8 % (40-54); Mean Corp Hgb Conc 32.3 g/dL (32-36); Mean Corpuscular Hgb 29.2 pg (27.0-32.0); Mean Corpuscular Volume 90.5 fL (80-94); Mean Platelet Vol. 8.6 fl (6.2-12.0); POSITIVE COUNT YES; POSITIVE MORPHOLOGY YES; Platelet Count 217 K/mm3 (150-450); RBC Distribution Width CV 13.2 % (11.6-14.6); RBC Distribution Width SD 43.3 fl (35.1-43.9); Red Blood Count 2.74 M/mm3 (4.6-6.2); White Blood Count 5.7 K/mm3 (4.4-11.0)
[2020-01-12 07:24] LABS: Differential Indicated MANUAL DIFF
[2020-01-12 07:49] LABS: Basophil 1 % (0-1); Eosinophil 1 % (0-5); Lymphocyte 11 % (19-41); Metamyelocyte 3 % (0-1); Monocyte 9 % (0-10); Myelocyte 1 (0-0); Neutrophil-Segmented 71 % (47-70); Platelet Estimate ADEQUATE (ADEQ); Promyelocyte 3 (0-0); Total Cells Counted 100 (MANUAL DIFF)
[2020-01-12 07:50] LABS: Red Cell Morphology NORM C+C NORMAL (NORM C&C)
[2020-01-12 07:51] LABS: Absolute Neutrophil Count 4.1 X10^3/uL (2.0-7.7)
[2020-01-12 09:50] VITALS: BP 162/85; PULSE 84; RESP 18; TEMP 37.2; O2SAT 98
[2020-01-12] MEDS: Meloxicam 7.5 MG Tablet PO (09:57)
[2020-01-12] MEDS: Ensure Surgery 237 ML LIQUID PO (09:57)
[2020-01-12] MEDS: Aspirin 81 MG TAB.CHEW PO (09:57)
[2020-01-12] MEDS: Lisinopril 10 MG Tablet PO (09:58)
[2020-01-12] MEDS: BACITRACIN 15 GM Tube 1 APPLIC TOPICAL (09:58)
[2020-01-12] MEDS: Famotidine 20 MG Tablet PO (09:58)
[2020-01-12] MEDS: Senna/Docusate Sodium 1 Tablet 2 TABLET PO (09:58)
[2020-01-12] MEDS: oxyCODONE 5 MG Tablet PO (10:05)
--- NOTE | 2020-01-12 10:40 | CASEMGMT ---
JENA BANKS called [facility] to confirm discharge for today to home for 1400 start of care. Manpreet at [facility] confirmed start of care for today at 1400. JENA BANKS faxed discharge instructions. JENA BANKS called Rabia at [facility] and confirmed delivery of IV ATB to patient's home by 1400. Rabia confirmed med will be delivered at 1400. JENA BANKS updated that patient regarding confirmed HHC with [facility] and start of care for 1400 today. Patient voiced understanding.
--- NOTE | 2020-01-12 16:02 | DS.PCM_ITS ---
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 Patient had bloody discharge for approximately 48 hours following the surgery which healed without incident. He had swelling 5 days after surgery which resolved. Approximately on January 06, 2020 patient began having increased pain with swelling and ulceration at the distal part of the incision. This area was aspirated in the office with purulent fluid and a CRP of 326. The patient opted to proceed with a irrigation debridement and revision total hip arthroplasty. The patient underwent the above-stated procedure on January 08, 2020. Patient did receive perioperative antibiotics. Intraoperatively was uneventful. For details please see dictated operative note. The patient was placed in thigh-high teds, bilateral SCDs, remained stable in recovery. Patient was admitted to the 3rd floor at [facility]. The patient's pain was managed with the use of IV and p.o. pain medications. Radha ent participated in physical therapy. Patient did require wound VAC postoperatively which she did have drainage and had to have a different wound VAC applied. Patient tolerated the wound VAC very well and there is no drainage after the second wound VAC. Infectious disease was consult and patient will be on IV antibiotics for 6 weeks postoperatively with Anc. Patient had PICC line placed in the hospital. Pain was well controlled and patient tolerated physical therapy. Patient was discharged on postoperative day #4 to withhold healthcare. Patient was given medications stated below. Patient will follow up with [facility] per postop instructions for reassessment. Patient will also require follow-up with infectious disease for management of antibiotics as well as weekly blood work. - Physical Exam Vitals/I&O's: Vital Signs Temp Pulse Resp BP Pulse Ox 99.0 F 84 18 162/85 H 98 01/12/20 09:50 01/12/20 09:50 01/12/20 09:50 01/12/20 09:50 01/12/20 09:50 Oxygen Delivery Method Room Air Weight: 114.6 kg Body Mass Index (BMI) 32.4 Intake and Output for Last 24 Hours 01/10/20 01/11/20 01/12/20 23:59 23:59 23:59 Intake Total 2793.00 / 3393.00 2209.75 / 2819.75 920 / 920 Output Total 500 / 500 Balance 2793.00 / 3393.00 2209.75 / 2819.75 420 / 420 General: Alert, Oriented x3, Cooperative, No apparent distress Microbiology Past 72 Hours 01/08/20 13:43 Tissue - Other Gram Stain - Final 01/08/20 13:43 Tissue - Other Wound Culture - Final Staphylococcus aureus 01/08/20 13:43 Tissue - Other Anaerobic Culture - Final No anaerobic bacteria isolated. 01/08/20 13:00 Tissue - Hip Gram Stain - Final 01/08/20 13:00 Tissue - Hip Wound Culture - Final Staphylococcus aureus 01/08/20 13:00 Tissue - Hip Anaerobic Culture - Final No anaerobic bacteria isolated. 01/08/20 13:00 Tissue - Hip Gram Stain - Final 01/08/20 13:00 Tissue - Hip Wound Culture - Final Staphylococcus aureus 01/08/20 13:00 Tissue - Hip Anaerobic Culture - Final No anaerobic bacteria isolated. 01/08/20 13:00 Tissue - Hip Gram Stain - Final 01/08/20 13:00 Tissue - Hip Wound Culture - Final Staphylococcus aureus 01/08/20 13:00 Tissue - Hip Anaerobic Culture - Final No anaerobic bacteria isolated. 01/08/20 13:00 Tissue - Hip Gram Stain - Final 01/08/20 13:00 Tissue - Hip Wound Culture - Final Staphylococcus aureus 01/08/20 13:00 Tissue - Hip Anaerobic Culture - Final No anaerobic bacteria isolated. 01/08/20 14:32 Blood Culture (Wb) - Left Forearm Blood Culture - Preliminary Staphylococcus aureus 01/08/20 14:28 Blood Culture (Wb) - Anticubital Left Bacteria Detection (PCR) - Final Staphylococcus aureus 01/08/20 14:28 Blood Culture (Wb) - Anticubital Left Blood Culture - Preliminary Staphylococcus aureus Laboratory Results 01/12/20 07:12: WBC 5.7, RBC 2.74 L, Hgb 8.0 L, Hct 24.8 L, MCV 90.5, MCH 29.2, MCHC 32.3, RDW Std Deviation 43.3, RDW Coeff of Chely 13.2, Plt Count 217, MPV 8.6, Neut % (Auto) Not Reportable, Absolute Neuts (auto) 4.1, Absolute Lymphs (auto) 1.00, Total Counted 100, Neutrophils % (Manual) 71 H, Lymphocytes % (Manual) 11 L, Monocytes % (Manual) 9, Eosinophils % (Manual) 1, Basophils % (Manual) 1, Metamyelocytes % 3 H, Myelocytes % 1 H, Promyelocytes % 3 H, Diff Path Review May foll, Platelet Estimate ADEQUATE, RBC Morphology NORM C+C Discharge Diet: No Restrictions Discharge Activity: May Not Drive - while taking narcotic pain medications. Ice area for (Minutes): 20 - Every 1-2 hours while awake Weight Bearing Status: Weight bearing as tolerated Keep extremity elevated above heart level: Operative Extremity Additional Activity Instructions:: Wear elastic stockings for 2 weeks. DO NOT use alcohol with narcotic pain medication. DO NOT make important decisions while taking narcotic medication. If you have problems with taking your medication (rash, itching, nausea, etc.) call the office at once. Call your doctor if your incision/area has: Increased Pain/ Swelling, Increased Redness, Foul Smelling Discharge Call your doctor if you observe: Fever of 101 or Higher Home Medications: Medications to take at Discharge Lisinopril [Zestril] 10 mg PO DAILY 01/07/20 Naproxen [Naprosyn] 500 mg PO DAILY PRN PRN 01/07/20 Oxycodone HCl 5 - 10 mg PO Q4H PRN PRN 5 Days #60 tab 01/11/20 Acetaminophen [Tylenol] 1,000 mg PO Q8 tab 01/12/20 Aspirin [Aspirin, Baby] 81 mg PO BID tab.chew 01/12/20 Cefazolin 2 gm IV Q8 #0 vial 01/12/20 Senna/Docusate Sodium [Senokot-S] 2 tab PO BID tab 01/12/20 Following Prescrptions Were Given to Patient: Oxycodone HCl 5 - 10 mg PO Q4H PRN PRN 5 Days #60 tab PRN Reason: Pain Score 6-10/10 Transmission Status: Received by [id number] Primary Care Physician: Juan Hunt MD [Primary Care Provider] - Please Follow Up With: Matthew Rivas PA-C When: 01/14/20 Please Follow Up With: Ramses Segundo MD When: will require 1-2 week follow up with infectious disease Additional Instructions: Pain medications: Continue with extra strength Tylenol 500 mg 2 tablets 3 times daily and xcem-onn-apxayhd Aleve 1 tablet twice daily with food for primary pain control. Only use oxycodone for breakthrough pain. Continue with wound VAC until postoperative visit at [facility] [place] Continue with IV antibiotics per infectious disease. Will need follow-up with infectious disease postoperatively Medical Necessity - Tobacco Use Smoking Status: Never smoker Meaningful Use Info Meaningful Use Diagnoses (Choose all that apply): None applicable
[2020-01-13 10:55] LABS: Pathologist Review Reviewed
== END 2020-01-12 12:27 | disposition home or self-care (01) | DRG 467 ==
PROVIDERS: Internal Medicine Infectious Disease; Physician Assistant Surgical; Admitting Provider Specialist; PCP Family Medicine; Visit Provider Specialist
PROC: 0SRR039 Replacement of Right Hip Joint, Femoral Surface with Ceramic Synthetic Substitute, Cemented, Open Approach (ICD-10-PCS; principal; 2020-01-08 09:05)
DX: T84.51XA Infection and inflammatory reaction due to internal right hip prosthesis, initial encounter (principal); R78.81 Bacteremia; D62 Acute posthemorrhagic anemia; B95.61 Methicillin susceptible Staphylococcus aureus infection as the cause of diseases classified elsewhere; Y83.1 Surgical operation with implant of artificial internal device as the cause of abnormal reaction of the patient, or of later complication, without mention of misadventure at the time of the procedure; I10 Essential (primary) hypertension; Z96.641 Presence of right artificial hip joint; Z87.891 Personal history of nicotine dependence
CPT/HCPCS: 36415; 36569; 73501; 73502; 76000; 80048; 80076; 80202; 85025; 85027; 87015; 87040; 87070; 87075; 87077; 87102; 87116; 87149; 87186; 87205; 87206; 87635; 88305; 88312; 93005; 93306; 97110; 97116; 97162; 97165; 97530; 97535; 99251; C1776; G2023; J7030; J7040; J7050; J7120; Q9957; A4216; G0463; J2405; U0003

== ENCOUNTER 2020-01-14 14:34 | Emergency (ER) | payer BC, SELFPAY ==
[2020-01-08 08:47] VITALS: BMI 32.4
[2020-01-14 14:35] VITALS: BP 151/90; PULSE 84; RESP 20; TEMP 36.4; O2SAT 98; BMI 32.1
[2020-01-14 14:56] VITALS: O2SAT 96
--- NOTE | 2020-01-14 15:01 | EKG12_ITS ---
Test Reason : DYSRHYTHMIA Blood Pressure : / mmHG Vent. Rate : 082 BPM Atrial Rate : 082 BPM P-R Int : 154 ms QRS Dur : 082 ms QT Int : 402 ms P-R-T Axes : 034 031 002 degrees QTc Int : 469 ms Normal sinus rhythm Normal ECG Confirmed by CATALINA NO, AURORA ([id number]), telegraph editor DAVE OAKLEY ([id number]) on 01/18/2020 8:13:59 AM Referred By: MR Confirmed By:AURORA ARNOLD MD
[2020-01-14 15:55] LABS: Hemoglobin 8.5 g/dL (13.0-16.5); Mean Corp Hgb Conc 31.5 g/dL (32-36); Mean Corpuscular Volume 92.2 fL (80-94); Mean Platelet Vol. 8.5 fl (6.2-12.0); POSITIVE COUNT YES; POSITIVE MORPHOLOGY YES; Platelet Count 384 K/mm3 (150-450); RBC Distribution Width CV 13.2 % (11.6-14.6); RBC Distribution Width SD 43.9 fl (35.1-43.9); Red Blood Count 2.93 M/mm3 (4.6-6.2); White Blood Count 5.8 K/mm3 (4.4-11.0)
--- NOTE | 2020-01-14 15:59 | RAD_ITS ---
STUDY: X-RAY CHEST REASON FOR EXAM: Male, 54 years old. SOB, PT IS 6 DAYS POST OP RIGHT TOTAL HIP REPLACEMENT TECHNIQUE: 3 PA and lateral views of the chest. COMPARISON: None. FINDINGS: The lungs are clear and expanded. There is no demonstrated pleural abnormality. Normal size heart. Normal mediastinum and gladys. Normal visualized pulmonary arteries. Normal visualized aortic arch and descending thoracic aorta. Normal visualized thoracic spine. Normal visualized ribs, clavicles, and shoulders. There is no demonstrated abnormality of the visualized soft tissue structures of the upper abdomen. RAD/Chest PA and Lateral IMPRESSION: Normal x-ray examination of the chest. Electronically Signed: Manpreet Zamora MD at 16:17 EDT , Service support ,
[2020-01-14 16:13] LABS: Anion Gap 6 (5-15); BUN 16 mg/dL (7-18); BUN/Creat Ratio 16.8 RATIO (10-20); Calcium,Total 8.5 mg/dL (8.5-10.1); Chloride 105 mmol/L (98-107); Creatinine, Serum 0.95 mg/dL (0.70-1.30); EST Glomerular Filtration Rate 87 mL/min (>60); Est Glom Filt Rate - Afr Amer 105 mL/min (>60); Estimated Creatinine Clearance 100.95 ml/min; Glucose 105 mg/dL (74-106); Potassium 3.9 mmol/L (3.5-5.1); Sodium Level 140 mmol/L (136-145)
[2020-01-14 16:18] LABS: D-Dimer Quantitative (DVT/PE) 3.41 FEU/ug/m (0.27-0.49)
--- NOTE | 2020-01-14 16:22 | CT_ITS ---
STUDY: CTA CHEST REASON FOR EXAM: Male, 54 years old. SOB, ELEV D DIMER, RECENT HIP REPLACEMENT 01/08/20 RADIATION DOSAGE (If Supplied By Facility): CTDIvol = ( 30.47 ) mGy, DLP = ( 767.58 ) mGycm TECHNIQUE: The examination was performed with the intravenous administration of IV 100mL Isovue-370. Post-processing of the angiographic images was performed, with multiplanar reformation and 3D reconstruction. Individualized dose optimization techniques were used for this CT. COMPARISON: None. FINDINGS: There is limited enhancement of the main pulmonary artery and right and left pulmonary arteries. There is limited enhancement of the bilateral peripheral pulmonary arteries. There is no large or obvious demonstrated pulmonary embolism. Normal thoracic aorta and visualized great vessels. There is no demonstrated aortic dissection. Normal heart size and pericardium. Normal mediastinum. There are bilateral hilar lymph nodes, which are normal in size and morphology. Normal visualized trachea and bronchi. The lungs are well expanded. Normal pulmonary parenchyma. No consolidation or pulmonary edema or pleural effusion is seen. Normal pleura. Normal chest wall structures. Normal osseous structures. No demonstrated acute or significant process of the visualized upper abdomen. CT/CTA Chest W/WO Contrast IMPRESSION: 1. Limited enhancement of the pulmonary arteries. No large or obvious embolus demonstrated. 2. No consolidation or pulmonary edema or pleural effusion is seen. Electronically Signed: Manpreet Zamora MD at 17:16 EDT , Service support ,
[2020-01-14 16:48] LABS: Differential Indicated MANUAL DIFF
[2020-01-14 16:55] LABS: Basophil 1 % (0-1); Eosinophil 1 % (0-5); Lymphocyte 16 % (19-41); Metamyelocyte 2 % (0-1); Monocyte 2 % (0-10); Myelocyte 5 (0-0); Neutrophil-Band 5 % (0-5); Neutrophil-Segmented 68 % (47-70); Total Cells Counted 100 (MANUAL DIFF)
[2020-01-14 16:58] LABS: Absolute Lymphocyte Count 0.93 X10^3/uL (0.83-4.51); Absolute Neutrophil Count 4.2 X10^3/uL (2.0-7.7)
[2020-01-14 16:59] LABS: Anisocytosis RARE; Hypochromasia RARE; Macrocytosis RARE; Platelet Estimate ADEQUATE (ADEQ); Red Cell Morphology N CHROM NORMAL (NORM C&C)
--- NOTE | 2020-01-14 17:27 | ED.VIS.GEN ---
History of Present Illness Chief Complaint: Shortness of Breath Narrative: Patient presenting for evaluation secondary to shortness of breath. Patient is about a week status post a right hip revision. Patient states that since discharge he has been feeling short of breath. He reports that he will get short winded with walking short distances. Even just walking across the room he reports that he is dyspneic and gets sweaty. He denies any chest pain associated with this. Denies any fever cough. He denies any asymmetric leg swelling, he has been wearing his compression stockings. No hemoptysis. Patient reports that he was following up with his orthopedist who recommended that he come to the emergency department for further evaluation. Past Medical History - Allergies and Home Meds Allergies/Adverse Reactions: Allergies No Known Allergies Allergy (Verified 01/14/20 14:38) Primary Care Physician: Juan Hunt MD [Primary Care Provider] - Prior records reviewed: Yes Past Medical History: - - Hypertension Surgical History: - - Recent right hip arthroplasty Smoking Status: Never smoker Alcohol: None Drugs: None Review of Systems All systems negative except as indicated General: Reports: Sweats Eyes: Denies: Visual changes - bilaterally, Diplopia ENT: Denies: Rhinorrhea, Sore throat Cardiovascular: Denies: Chest pain, Palpitations Respiratory: Reports: Dyspnea Gastrointestinal: Denies: Abdominal pain, Nausea, Vomiting, Diarrhea, Melena, Hematochezia Genitourinary: Denies: Dysuria, Hematuria, Frequency Musculoskeletal: Denies: Back pain, Extremity Pain Skin: Denies: Rash, Wounds Neurological: Denies: Headache, Weakness, Numbness Physical Exam Vital Signs/Narrative: Vital Signs Temp Pulse Resp BP Pulse Ox 01/14/20 14:35 97.6 F L 84 20 H 151/90 H 98 General: Well nourished, Well developed, No Acute Distress Head: Normocephalic, Atraumatic Eyes: Perrl, EOMI ENT: Moist mucous membranes, No rhinorrhea Neck: Supple, Nontender Cardiovascular: Regular rate, Regular rhythm, No murmurs Respiratory: No distress, CTA bilaterally, Chest nontender Abdomen: Soft, Nontender, Nondistended, Normal bowel sounds Back: Nontender, Normal Inspection Extremities: Nontender, - - Bilateral lower extremity edema is noted. Patient has bruising of his right leg consistent with his recent surgery. Calves are supple no palpable cord. Skin: Normal color, No rash Neurological: Alert, Oriented x3, Cranial nerves II-XII grossly intact, Normal Strength, Normal Sensation Psychological: Normal affect, Normal Mood Diagnostic/Tx/Re-eval Clinical Impression(s) from Imaging Studies Chest X-Ray 01/14/20 15:59 IMPRESSION: Normal x-ray examination of the chest. Electronically Signed: Manpreet Zamora MD at 16:17 EDT , Service support , Chest CTA 01/14/20 16:22 IMPRESSION: 1. Limited enhancement of the pulmonary arteries. No large or obvious embolus demonstrated. 2. No consolidation or pulmonary edema or pleural effusion is seen. Electronically Signed: Manpreet Zamora MD at 17:16 EDT , Service support , Laboratory Data 01/14/20 01/14/20 01/14/20 15:35 15:35 15:35 WBC 5.8 RBC 2.93 L Hgb 8.5 L Hct 27.0 L MCV 92.2 MCH 29.0 MCHC 31.5 L RDW Std Deviation 43.9 RDW Coeff of Chely 13.2 Plt Count 384 MPV 8.5 Neut % (Auto) Not Reportable Absolute Neuts (auto) 4.2 Absolute Lymphs (auto) 0.93 Total Counted 100 Neutrophils % (Manual) 68 Band Neutrophils % 5 Lymphocytes % (Manual) 16 L Monocytes % (Manual) 2 Eosinophils % (Manual) 1 Basophils % (Manual) 1 Metamyelocytes % 2 H Myelocytes % 5 H Diff Path Review May foll Platelet Estimate ADEQUATE RBC Morphology N CHROM Hypochromasia RARE Anisocytosis RARE Macrocytosis RARE D-Dimer Quant (PE/DVT) 3.41 H* Sodium 140 Potassium 3.9 Chloride 105 Carbon Dioxide 29.0 Anion Gap 6 BUN 16 Creatinine 0.95 Estim Creat Clear Calc 100.95 Est GFR (MDRD) Af Amer 105 Est GFR (MDRD) Non-Af 87 BUN/Creatinine Ratio 16.8 Glucose 105 Calcium 8.5 Troponin I < 0.015 - EKG Initial EKG Interpretation: - - Sinus rhythm of [address] segments normal T waves normal IN and QTc intervals no evidence of acute ischemia or arrhythmia - Medical Decision Making Patient presented secondary to shortness of breath. EKG demonstrates no signs of ischemia. CBC demonstrates the patient to have anemia with hemoglobin of 8.5 which is stable from his discharge hemoglobin, but is significantly lower from his baseline hemoglobins back in November which were up around 14. Chemistry unremarkable. Troponin was negative. D-dimer was found to be elevated. Chest x-ray by my personal review as well as radiology was found to be negative. CT angiogram of the chest due to the patient's recent surgery and elevated d-dimer was performed and was read as negative per radiology. Patient was ambulated in the emergency department and did not have hypoxia but did become somewhat dyspneic. I believe that the patient's shortness of breath likely is secondary to his anemia, he does not have evidence of active bleeding at this time. Patient will be placed on iron supplementation. Patient will follow-up with primary care. ED Disposition - Plan for ED Patient: Disposition: Home or Assisted Living Diagnosis: Anemia Instructions: ED Anemia Type Not Specified Prescriptions: Ferrous Sulfate [Iron] 325 mg PO DAILY #30 tab Prescription Printed Referrals: Juan Hunt MD [Primary Care Provider] - 3-5 Days
[2020-01-14 17:32] VITALS: BP 160/79; O2SAT 95
[2020-01-14 17:48] VITALS: BP 161/82; PULSE 79; RESP 16; O2SAT 95
[2020-01-18 09:47] LABS: Pathologist Review Reviewed
== END 2020-01-14 17:48 | disposition home or self-care (01) ==
PROVIDERS: Emergency Provider Emergency Medicine; PCP Family Medicine
DX: D64.9 Anemia, unspecified (principal); I10 Essential (primary) hypertension; Z96.641 Presence of right artificial hip joint
CPT/HCPCS: 71046; 71275; 80048; 84484; 85025; 85379; 93005; 99283; Q9967; A4216

== ENCOUNTER 2020-02-03 06:59 | Day surgery (SDC) | payer BC, SELFPAY ==
[2020-02-01 19:05] LABS: Probe Check PASS; Specimen Processing Control PASS
[2020-02-03] MEDS: Ketorolac 15 MG/ML Vial IV (06:52)
[2020-02-03] MEDS: Lactated Ringers 1,000 ML 120 ML IV (06:55)
[2020-02-03 08:11] VITALS: BP 153/85; PULSE 68; RESP 16; TEMP 36.6; O2SAT 97; BMI 31.4
[2020-02-03 10:00] VITALS: BP 126/82; BP 153/85; PULSE 67; RESP 16; TEMP 36.2; O2SAT 97
--- NOTE | 2020-02-03 10:13 | PCM.OPRPT ---
Report of Operation Date of Procedure: 02/03/20 Pre-Operative Diagnosis: Right hip seroma with developing sinus Post-Operative Diagnosis: Right hip seroma with developing sinus Surgery/Procedure Performed:: Right hip sinus excision x2, right hip evacuation superficial seroma Description of Surgical Findings:: Seroma was superficial. Closed in multiple layers. accounts payable processor: Rupesh Cano Type of Anesthesia:: General Anesthesiologist: Juanpablo Velasco Special Medications: Patient is on regular IV regimen Specimen's removed: 2 sinuses 1 proximal 1 distal. Estimated Blood Loss (mL): 30 Fluids Replaced: 700 mL crystalloid Description of Procedure: On the date of the procedure patient's right leg was marked in the preoperative area. Patient was brought back to the operating room where anesthesia assumed control of the C-spine and airway and remained controlled throughout the remainder of the procedure. Patient was positioned in supine position on the operating table. All bony prominences were identified and well-padded. Anesthetic was administered. The area was prepped with Betadine due to the draining sinuses. Surgeon then scrubbed. Upon reentering the room the right lower extremity was then draped in a sterile fashion. The incision was marked out. We marked out ellipses around the proximal and distal sinus tract. The proximal sinus tract was 2 mm x 2 mm distal sinus tract was 3 mm x 4 mm. Once incision was marked out timeout was called. When agreed upon the side, the site, the procedure to be perform, patient's identity and antibiotics given. At this time incision was were made to ellipse out both sinus tracts. They removed. Soni was used we then connected the incision between the 2 sinus tracts. We dissected down. The fascia appeared to be well-healed. Did not appear to be deep communication. We carefully debrided the seroma and evacuated the fluid. Wound was copiously irrigated out with normal saline. This was done under low-pressure lavage. At this time we had good bleeding skin edges and bleeding tissue. We commenced to close this in a layer denney fashion using non-braided suture. 2-0 PDS was used to close the subcutaneous layer down. 2-0 nylon was used to close the skin closure. Final skin approximation was done with a 4-0 V-lock barbed suture. Once this was completed Xeroform dressing was placed. ABD sterile dressing was placed. Occlusive dressing was placed. Patient was awakened anesthesia transferred back to the recovery room. Postoperative plan: Patient will leave the dressing on for 2 days. He was instructed to limit his activities. After 2 days he will switch to a Mepilex dressing if it is dry with minimal drainage. If there is excessive drainage we will switch him to a wound VAC with his home health nurse. He will return to the office in 1 week for incision check. - Complications NONE - Admit VTE Documentation VTE Present on Admission: No VTE Mechan Device Prophylaxis: SCD's, Thigh High IRINA Watts VTE Pharm Prophylaxis ordered?: Yes
[2020-02-03 10:15] VITALS: BP 116/76; BP 153/85; PULSE 62; RESP 16; O2SAT 96
[2020-02-03 10:30] VITALS: BP 110/77; BP 153/85; PULSE 63; RESP 16; O2SAT 98
[2020-02-03 10:40] VITALS: BP 122/99; BP 153/85; PULSE 60; RESP 16; TEMP 36.2; O2SAT 97
[2020-02-03 11:31] VITALS: BP 126/82; BP 153/85; PULSE 57; RESP 16; TEMP 36.2; O2SAT 100
== END 2020-02-03 11:35 | disposition home or self-care (01) ==
LOC: SDC 07:00 → AC 07:00
PROVIDERS: Anesthesiology; PCP Family Medicine; Referring Provider Specialist; Visit Provider Specialist
PROC: (CPT 10140; principal; 2020-02-03 08:50)
DX: T84.51XA Infection and inflammatory reaction due to internal right hip prosthesis, initial encounter (principal); M96.842 Postprocedural seroma of a musculoskeletal structure following a musculoskeletal system procedure; I10 Essential (primary) hypertension; Z96.641 Presence of right artificial hip joint; Z79.82 Long term (current) use of aspirin; Z79.899 Other long term (current) drug therapy; Z87.891 Personal history of nicotine dependence; Z20.828 Contact with and (suspected) exposure to other viral communicable diseases
CPT/HCPCS: 00400; 10140; 87635; 94799; J7120; A4216; J2405; U0003

== ENCOUNTER → 2020-02-22 | Outpatient (CLI) | payer BC, SELFPAY ==
[2020-02-03 08:11] VITALS: BMI 31.4
[2020-02-22 18:21] LABS: Absolute Lymphocyte Count 1.32 X10^3/uL (0.83-4.51); Absolute Neutrophil Count 3.2 X10^3/uL (2.0-7.7); Basophil# 0.03 X10^3/uL; Basophil% 0.6 % (0-1); Eosinophil# 0.14 X10^3/uL; Eosinophils% 2.7 % (0-5); Hematocrit 37.4 % (40-54); Lymphocyte # 1.32 X10^3/ul (4.0); Lymphocyte % 25.2 % (19-41); Mean Corp Hgb Conc 32.1 g/dL (32-36); Mean Corpuscular Hgb 26.7 pg (27.0-32.0); Mean Corpuscular Volume 83.1 fL (80-94); Mean Platelet Vol. 9.1 fl (6.2-12.0); Monocyte# 0.51 X10^3/uL; Monocyte% 9.7 % (0-10); NRBC Flagged by Analyzer 0 % (0-5); Neutrophil # 3.22 X10^3/uL (2.7-7.7); Neutrophil % 61.4 % (47-70); Platelet Count 348 K/mm3 (150-450); RBC Distribution Width CV 13.3 % (11.6-14.6); RBC Distribution Width SD 40.4 fl (35.1-43.9); White Blood Count 5.2 K/mm3 (4.4-11.0)
[2020-02-22 18:27] LABS: Erythrocyte Sedimentation Rate 38 mm/hr (0-20)
[2020-02-22 19:06] LABS: Anion Gap 5 (5-15); BUN 17 mg/dL (7-18); BUN/Creat Ratio 18.2 RATIO (10-20); Calcium,Total 8.7 mg/dL (8.5-10.1); Chloride 103 mmol/L (98-107); Creatinine, Serum 0.93 mg/dL (0.70-1.30); EST Glomerular Filtration Rate 89 mL/min (>60); Est Glom Filt Rate - Afr Amer 107 mL/min (>60); Glucose 84 mg/dL (74-106); Potassium 4.1 mmol/L (3.5-5.1); Sodium Level 138 mmol/L (136-145)
== END | disposition home or self-care (01) ==
PROVIDERS: PCP Family Medicine; Visit Provider Internal Medicine Infectious Disease
DX: T84.51XA Infection and inflammatory reaction due to internal right hip prosthesis, initial encounter (principal)
CPT/HCPCS: 80048; 85025; 85652

== ENCOUNTER 2020-03-10 14:30 | Outpatient (RCR) | payer BC, SELFPAY ==
--- NOTE | 2020-03-04 07:52 | HP.PTEVAL ---
Patient's Visit Information CY LIM is a 54 year old M referred to Physical Therapy by Dr. Linus Quinn MD with a diagnosis of Presence R artificail hip joint anterior. Date of Evaluation: 03/04/20 Physical Therapist: Juanpablo Weaver, DPT, OCS, CSCS - Visit Plan Frequency: 3x /Week Duration: 4-6 Weeks Plan: 3x/week for 4-6 weeks as needed for. 1. scar massage and stretching R hip flexors and quads. 2. strengthen R hip stabs. 3. functional shoe tying and trasnfer up off floor. ice as needed. - Subjective December 07 R AMBER and got infected, took out January and put new one in around January 07. Not as good as the last one. Still on antibiotic and will be for a year. Pain is worse wit this one. Comfortable at rest. Cannot lift hip into flexion. Incision is anterior. Hurts to flex and too weak. Walking is OK. Feels unstable if he slips and it is alarming. Sleep is not a big problem, hard to roll in bed. Painfully aggravating. 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 Getting down on floor and returning is not happening. Basic ADLs are getting done at home, putting socks and shoes on hurts. Hobbies include hunting and cannot walk right now, rides ranger. Uneven surface are difficult. - Pain R hip pain anterior Pain Intensity (Out of 10): 0 Pain Intensity Range: 0, 5 Comment: put shoes on - Objective R. Walks with R trenedlenberg slightly, avoids R hip ext at end stance but I and safe. trasnfers I supine and sit. steps reciprocal without rail but slight pain descending. Incision is anterior and healed well but half way and distal is maximal scar tissue and firmness. Very tight with stretching. Crossing R leg over left to put on shoe requires passive lifting of leg with UE today. Quad R mod tight, hip flexor R max tightness vs L, B HS mod tight. Functionally hard to cross r leg to put on shoe and get up off floor lacks confidence. AROM R hip ext to 5 degrees and abd to 18 vs 25 L. Ext rotation 45 R and 50 L, IR painful R at 20 and L to 25. reflexes 2/3 patella and achilles. Sensation LE WNL to gross light touch. Strength ankles 5/5, knees 4+R and 5 L,. Hip strength flexion 3+ R and 4+ L, abd 3 R and 4- L, adduction 4 L and 4- R, ext 3+ R and 4-L. - Balance Scores Functional Gait Assessment Score: 28 % Disability: 6.6700 - Goals Goal 1:: cross legs to put on shoe easily and without pain Goal Time Frame: 4-6 Weeks Goal 2:: Get up off floor easily to help with his job duties Goal Time Frame: 4-6 Weeks Goal 3:: Pt feel 90% better in R hip and pain 0-1/10 at most Goal Time Frame: 4-6 Weeks Goal 4:: I approp HEP to minimize future problems Goal Time Frame: 4-6 Weeks Goal 5:: Sleep without interruption or difficulty Goal Time Frame: 4-6 Weeks Goal 6:: 55/8- LEFS to improve mobility/function Goal Time Frame: 4-6 Weeks - Rehabilitation Potential Physical Therapy Diagnosis: s/p R AMBER revision due to infection Rehabilitation Potential: Good - Anticipated Interventions Patient/Client Instruction: Educate patient on: Condition, Plan of Care For the Purpose of:: To decrease pain, To increase ROM, To improve nutrient delivery to tissue, To improve muscle performance and motor function, To increase tolerance to activity/condition/position Therapeutic Exercise to Include: Strength training, Flexibilty training, Neuromotor development, Passive ROM, Active ROM For the Purpose of:: To decrease pain, To improve muscle performance and motor function, To increase tolerance to activity/condition/position, To improve ability of physical actions for home/community/work/leisure Manual Therapy Techniques to Include: Scar massage, Mobilization, Soft tissue mobilization For the Purpose of:: To decrease pain, To increase ROM, To improve muscle performance and motor function, To increase tolerance to activity/condition/position Cryotherapy (ice pack, ice massage): Yes For the Purpose of:: To decrease swelling/inflammation Thank you for the opportunity to evaluate your patient. For Medicare and Medicare HMO plans, please review the plan of care and approve it. It will need to be FAXED BACK to us at [phone] for Medicare purposes. For Medicare only, by signing this I certify the plan of care. Please let me know if there are questions or concerns regarding this plan of care. Physician Signature: Date:
--- NOTE | 2020-05-24 15:31 | HP.PT.NRP ---
CY LIM was seen in my office for initial evaluation on 03/04/20. The following Plan of Care was established for this patient: Initial Frequency: 3x /Week Initial Duration: 4-6 Weeks Patient/Client Instruction: Educate patient on: Condition, Plan of Care For the Purpose of:: To decrease pain, To increase ROM, To improve nutrient delivery to tissue, To improve muscle performance and motor function, To increase tolerance to activity/condition/position Therapeutic Exercise to Include: Strength training, Flexibilty training, Neuromotor development, Passive ROM, Active ROM For the Purpose of:: To decrease pain, To improve muscle performance and motor function, To increase tolerance to activity/condition/position, To improve ability of physical actions for home/community/work/leisure Manual Therapy Techniques to Include: Scar massage, Mobilization, Soft tissue mobilization For the Purpose of:: To decrease pain, To increase ROM, To improve muscle performance and motor function, To increase tolerance to activity/condition/position Cryotherapy (ice pack, ice massage): Yes For the Purpose of:: To decrease swelling/inflammation This patient was last seen in our office 03/10/20. Pertinent comments regarding their Physical therapy will appear below: Pt seen three visits of his plan of care and was feeling looser. He neglected to schedule or attend any further visits in his POC. At this point, I will discontinue him as it has been over three months At this point I will be discontinuing this patient from physical therapy. I would be happy to see this patient again in the future if found appropriate by the physician. Thank you! Juanpablo Weaver, DPT, OCS, CSCS
== END 2020-03-10 19:00 | disposition home or self-care (01) ==
LOC: PT 14:30
PROVIDERS: PCP Family Medicine; Referring Provider Specialist; Visit Provider Specialist
DX: Z96.641 Presence of right artificial hip joint (principal)
CPT/HCPCS: 97110; 97140; 97162

== ENCOUNTER → 2020-03-17 09:24 | Outpatient (CLI) | payer BC, SELFPAY ==
[2020-03-17 10:32] LABS: Absolute Lymphocyte Count 1.13 X10^3/uL (0.83-4.51); Absolute Neutrophil Count 4.3 X10^3/uL (2.0-7.7); Basophil# 0.04 X10^3/uL; Basophil% 0.6 % (0-1); Eosinophil# 0.08 X10^3/uL; Eosinophils% 1.3 % (0-5); Hematocrit 42.1 % (40-54); Hemoglobin 13.7 g/dL (13.0-16.5); Lymphocyte # 1.13 X10^3/ul (4.0); Lymphocyte % 18.1 % (19-41); Mean Corp Hgb Conc 32.5 g/dL (32-36); Mean Corpuscular Hgb 26.9 pg (27.0-32.0); Mean Corpuscular Volume 82.5 fL (80-94); Monocyte# 0.69 X10^3/uL; NRBC Flagged by Analyzer 0 % (0-5); Neutrophil # 4.27 X10^3/uL (2.7-7.7); Neutrophil % 68.2 % (47-70); Platelet Count 278 K/mm3 (150-450); RBC Distribution Width CV 14.8 % (11.6-14.6); RBC Distribution Width SD 44.7 fl (35.1-43.9); White Blood Count 6.3 K/mm3 (4.4-11.0)
[2020-03-17 23:03] LABS: Erythrocyte Sedimentation Rate 60 mm/hr (0-20)
[2020-03-22 11:59] LABS: Magnesium 2.3 mg/dL (1.6-2.6)
== END ==
PROVIDERS: Anesthesiology; PCP Family Medicine; Visit Provider Specialist
DX: Z96.641 Presence of right artificial hip joint (principal)
CPT/HCPCS: 36415; 83735; 85025; 85652; 86140

== ENCOUNTER 2020-03-23 10:53 | Inpatient (IN) | payer BC, SELFPAY ==
[2020-03-23] VITALS (10 sets, daily range): BP systolic 105–144; BP diastolic 67–89; PULSE 65–99; RESP 16–18; TEMP 36.5–37; O2SAT 96–100; BMI 31.5
[2020-03-23] MEDS: Lactated Ringers 1,000 ML 999 ML IV ×2 (11:41→13:00)
[2020-03-23 12:06] LABS: Bedside Glucose 112 mg/dL (70-110)
[2020-03-23] MEDS: Scopolamine 1mg/72hr Patch 1 PATCH TRANSDERM. (12:06)
[2020-03-23] MEDS: Celecoxib 200 MG Capsule 400 MG PO (12:08)
[2020-03-23] MEDS: Acetaminophen 500 MG Tablet 1000 MG PO ×2 (12:08→21:37)
[2020-03-23] MEDS: Gabapentin 600 MG Tablet PO (12:09)
[2020-03-23] MEDS: Lactated Ringers 1,000 ML 125 ML IV ×2 (13:00→17:35)
[2020-03-23] MEDS: dexAMETHasone 10 MG/ML Vial IV (13:56)
--- NOTE | 2020-03-23 15:40 | RAD_ITS ---
STUDY: X-RAY - PELVIS AND RIGHT HIP REASON FOR EXAM: Male, 55 years old. RIGHT HIP; DEBRIDEMENT TECHNIQUE: 3 intraoperative views of the pelvis and hip. COMPARISON: None. FINDINGS: 3 limited intraoperative studies were performed as the patient has undergone debridement of wound around the right hip. RAD/Hip Min 2 Views (Portable) IMPRESSION: Debridement of a right hip wound Electronically Signed: Moreno Finnegan MD at 16:41 EDT , Service support ,
[2020-03-23] MEDS: Cefazolin 2 GM in 0.9% Normal Saline 100 ML IV (15:46)
[2020-03-23] MEDS: Cefazolin 1 GM/5 ML Vial 2 GM OPERA.SITE (16:28)
[2020-03-23] MEDS: Vancomycin IV 1,000 MG/20 ML Vial 6000 MG OPERA.SITE (16:28)
--- NOTE | 2020-03-23 17:38 | PCM.OPRPT ---
Report of Operation Date of Procedure: 03/23/20 Pre-Operative Diagnosis: Right hip periprosthetic joint infection Post-Operative Diagnosis: Right hip periprosthetic joint infection Surgery/Procedure Performed:: Right hip explant with placement of antibiotic spacer, with radical debridement. Description of Surgical Findings:: Stable hip. Complete debridement. Purulent fluid was encountered when we got in the joint. surgical garment fitter: Jose Rivas Type of Anesthesia:: General Anesthesiologist: Devin Paul Special Medications: Ceftezole and and Ancef were given after cultures were taken Specimen's removed: 3 separate specimens were sent to microbiology. Estimated Blood Loss (mL): 750 Fluids Replaced: 2300 mL crystalloid Description of Procedure: Findings: Adequate reduction with stability of the hip and equal leg lengths measured intraoperatively. Components used: 1. Kinsman Webster size 337.5 mm 2. Kinsman alpha code G polyethylene liner 3. Kinsman cobalt-chromium 40 mm +8 mm ball Brief history operative indications: 55-year-old male who had a total replacement earlier this year. Subsequently developed symptoms of infection. He had a debridement with 1 stage revision. Acetabular component was well fixed and maintained. He had a postoperative seroma that was also debrided. Patient was on 6 weeks of IV antibiotics. Incision healed well however he developed recurrent symptoms of increased warmth redness and pain especially with activities. CRP was repeated was 126. At this time based on his history and return of symptoms after placement of antibiotics I recommended an explantation in placement of antibiotic spacer with complete debridement. Risks and benefits were discussed with the patient which included but were not limited to blood loss, DVTs, PEs, infection, neurovascular damage, and dislocation. In light of all this patient did agree to proceed. Procedure: On the date of procedure the patient's R hip was marked in the preoperative area. Patient was then taken back to the operating room where anesthesia assumed control of the C-spine and airway and administered anesthetic. Patient was transferred to the operating table and placed in the lateral decubitus position with the affected hip up. The patient was secured in the bed with the lateral positioners and leg lengths were checked. The R lower extremity was then prepped out in a sterile fashion using chlorhexidine while the surgeon scrubbed. Upon reentering the room the R lower extremity was draped in the standard orthopedic fashion and the incision was marked. A timeout was called and everyone agreed upon the side, the site, the procedure be performed, antibiotics given, and patient's identity. At this time incision was made through skin, subcutaneous tissue, and fat down to fascia. The fascia was then incised and a Charley retractor was placed. The soft tissue was then cleared from the posterior external rotators and the piriformis were identified. Due to previous surgery they were not distinct. The posterior structures were taken down the sleep. We then did a posterior synovectomy. We then complete a synovectomy around the femoral head as we exposed it. Once synovectomy was completed we dislocated the hip and dissociated the Welch taper. Once this was done we used osteotomes to break up the implant cement interface. Implant was removed. The cement mantle was then carefully removed. During the course this we did use x-ray L verify removal of cement. Once we were able to completely remove the cement restrictor and felt we had adequately removed all the cement we then directed attention to the acetabulum. Should be noted that upon entering the joint we noted significant purulent fluid and this was aspirated and sent for culture. We also sent synovium for culture. We also sent femoral membrane for culture. The femur was carefully debrided using curettage and all membrane was removed from the canal. We also reamed distally. Once this was completed we direct our attention to the acetabulum. We completed the synovectomy and exposed the acetabulum. We used the cup Tomes to debride around the acetabulum. Isotopic bone was removed. Reamer was touched with a 62 reamer. Once we felt we had an adequate debridement 6 L of normal saline were irrigated throughout the wound. Antibiotic cement was mixed for the acetabulum using half of our antibiotic cement. We did use 6 g of vancomycin, 4.8 g of tobramycin and 2 g of Ancef in total in our cement. However much of the cement was lost during impaction. We then impacted the cup using a acetabular positioner to help obtain the appropriate position. Once the cement cured we mixed cement for the femoral canal. Using the same size cemented femur with cement previously used we cemented it to the appropriate height and depth using a first generation cement technique. Once the cement adequately cured we used trialed a 40 mm head. A +8 gave us the best stability with appropriate leg lengths. Trials were dislocated. Femoral head was removed. Trunnion was cleaned and femoral head was impacted into place. At this time hip was reduced with the help of my physician case management assistant. The wound was lavaged with a 3-minute dilute Betadine solution. This was followed by a chlorhexidine lavage. We then copiously irrigated out the wound with normal saline. Once this was completed we used #2 FiberWire to repair the posterior structures in a sleevelike fashion. Closure was then done using #1 Vicryl to close the fascia. A 2-0 Vicryl interrupted sutures were used to close the subcutaneous skin. Skin keesha were used for final skin closure. A sterile dressing was placed. Patient was awakened by anesthesia and transferred to the [facility]. Patient was then transferred to the PACU for recovery. Postoperative plan: Infectious disease will be consulted. Patient will be toe-touch weightbearing for 2 weeks followed by partial weightbearing the remainder of the time the spacer is in. After completion of his antibiotic regimen and antibiotic holiday showing no return of symptoms we will plan on revising the hip to a more permanent implant. Aspirin for DVT prophylaxis 81 mg twice daily. - Complications No intraoperative complications - Admit VTE Documentation VTE Present on Admission: No VTE Mechan Device Prophylaxis: SCD's, Thigh High IRINA Hose VTE Pharm Prophylaxis ordered?: Yes
--- NOTE | 2020-03-23 18:20 | RAD_ITS ---
STUDY: X-RAY - PELVIS AND RIGHT HIP REASON FOR EXAM: Male, 55 years old. Post op right hip TECHNIQUE: 3 views of the pelvis and hip. COMPARISON: 01/08/2020 FINDINGS: Status post revision of the right hip prosthesis with surrounding postsurgical changes. Skin keesha are noted laterally. RAD/Hip Min 2 Views (Portable) IMPRESSION: Revision of right hip prosthesis with postsurgical changes. Electronically Signed: Christian Ledezma DO at 20:57 EDT Tel [phone], Service support ,
[2020-03-23] MEDS: Morphine 2 MG/ML Syringe IV (20:47)
--- NOTE | 2020-03-23 21:00 | RAD_ITS ---
STUDY: X-RAY - RIGHT FEMUR REASON FOR STUDY: Male, 55 years old. POST OP DISTAL FEMUR. DR. IBRAHIM REQUESTED ONLY THE MID TO DISTAL SHAFT OF FEMUR FOR THIS EXAM THE PROXIMAL HIP WAS DONE IMMEDIATELY POST OP TECHNIQUE: 2 view(s) of the femur. COMPARISON: None. FINDINGS: Normal visualized distal femur. Mild degenerative changes at the knee with slightly narrowed lateral femorotibial compartment. Normal visualized soft tissue structure. RAD/Femur Min 2 Views IMPRESSION: No acute bony injury of the visualized distal femur. Electronically Signed: Christian Ledezma DO at 23:01 EDT Tel [phone], Service support ,
[2020-03-23] MEDS: Aspirin 81 MG TAB.CHEW PO (21:37)
[2020-03-23] MEDS: Senna/Docusate Sodium 1 Tablet 2 TABLET PO (21:37)
[2020-03-23] MEDS: oxyCODONE 5 MG Tablet PO (23:43)
[2020-03-23] MEDS: Cefazolin 1 GM/50 ML BAG IV (23:47)
[2020-03-24] MEDS: Lactated Ringers 1,000 ML 125 ML IV (02:29)
[2020-03-24 03:29] VITALS: BP 145/63; PULSE 74; RESP 18; TEMP 36.6; O2SAT 98
[2020-03-24 05:57] LABS: Hematocrit 32.8 % (40-54); Hemoglobin 10.5 g/dL (13.0-16.5); Mean Corpuscular Hgb 26.4 pg (27.0-32.0); Mean Corpuscular Volume 82.4 fL (80-94); Mean Platelet Vol. 8.2 fl (6.2-12.0); Platelet Count 333 K/mm3 (150-450); RBC Distribution Width CV 14.5 % (11.6-14.6); RBC Distribution Width SD 43.4 fl (35.1-43.9); Red Blood Count 3.98 M/mm3 (4.6-6.2); White Blood Count 8.7 K/mm3 (4.4-11.0)
[2020-03-24] MEDS: oxyCODONE 5 MG Tablet PO ×3 (06:03→19:18)
[2020-03-24] MEDS: Acetaminophen 500 MG Tablet 1000 MG PO ×3 (06:03→22:19)
[2020-03-24 06:16] LABS: Anion Gap 5 (5-15); BUN 12 mg/dL (7-18); BUN/Creat Ratio 15.2 RATIO (10-20); Calcium,Total 7.9 mg/dL (8.5-10.1); Chloride 105 mmol/L (98-107); Creatinine, Serum 0.79 mg/dL (0.70-1.30); EST Glomerular Filtration Rate 108 mL/min (>60); Est Glom Filt Rate - Afr Amer 131 mL/min (>60); Estimated Creatinine Clearance 119.95 ml/min; Glucose 123 mg/dL (74-106); Sodium Level 139 mmol/L (136-145)
[2020-03-24] MEDS: Cefazolin 1 GM/50 ML BAG IV (07:11)
[2020-03-24 08:35] VITALS: BP 141/69; PULSE 75; RESP 18; TEMP 36.7; O2SAT 97
[2020-03-24] MEDS: Famotidine 20 MG Tablet PO (08:36)
[2020-03-24] MEDS: Senna/Docusate Sodium 1 Tablet 2 TABLET PO ×2 (08:36→22:19)
[2020-03-24] MEDS: Aspirin 81 MG TAB.CHEW PO ×2 (08:36→16:03)
--- NOTE | 2020-03-24 09:14 | PN.ORTHO_ITS ---
Subjective: The patient was sitting in bed upon examination. Patient denies any chest pain, shortness of breath, dizziness, lightheadedness, nausea or vomiting, or calf pain. Pain is controlled on medications. No adverse overnight events. Overall patient's pain is very well controlled. Infectious disease has been consulted for management of IV antibiotics and PICC line. Patient's plan is to go home when appropriate. Objective: Vital signs stable and afebrile. Patient is able to plantarflex and dorsiflex actively. Sensation is intact to light touch to saphenous, sural, superficial and deep peroneal, and tibial distribution. Dressing is clean dry and intact. Negative Homans bilaterally, negative signs and symptoms of DVT. - Physical Exam Vitals/I&O's: Vital Signs Temp Pulse Resp BP Pulse Ox 98.1 F 75 18 141/69 H 97 03/24/20 08:35 03/24/20 08:35 03/24/20 08:35 03/24/20 08:35 03/24/20 08:35 Oxygen Flow Rate (L/min) 6 Oxygen Delivery Method Room Air Weight: 111.4 kg Body Mass Index (BMI) 31.5 Intake and Output for Last 24 Hours 03/22/20 03/23/20 03/24/20 23:59 23:59 23:59 Intake Total 5886.50 / 5886.50 2699.25 / 2699.25 Output Total 975 / 975 2300 / 2300 Balance 4911.50 / 4911.50 399.25 / 399.25 General: Alert, Oriented x3, Cooperative, No apparent distress Microbiology Past 72 Hours 03/23/20 16:30 Wound Drainage - Hip Gram Stain - Preliminary Laboratory Results 03/23/20 11:58: POC Glucose 112 H 03/23/20 16:30: Fluid Source Cancelled, Fluid Color Cancelled, Fluid Appearance Cancelled, Fluid WBC Cancelled, Fluid RBC Cancelled, Fluid Tot Cell Count Cancelled, Fld Polynuclear WBCs # Cancelled, Fld Polynuclear WBCs % Cancelled, Fluid Mononuclear WBCs Cancelled, Fld Mononuclear WBCs % Cancelled, Fluid Neutrophils Cancelled, Fluid Lymphocytes Cancelled, Fluid Monocytes Cancelled, Fluid Plasma Cells Cancelled, Fluid Macrophages Cancelled, Fld Mesothelial Cells Cancelled, Fluid Other Cells Cancelled, Fl Pathologist Comment Cancelled, Fluid Comment 2 Cancelled 03/24/20 05:30: WBC 8.7, RBC 3.98 L, Hgb 10.5 L, Hct 32.8 L, MCV 82.4, MCH 26.4 L, MCHC 32.0, RDW Std Deviation 43.4, RDW Coeff of Chely 14.5, Plt Count 333, MPV 8.2 03/24/20 05:30: Sodium 139, Potassium 4.0, Chloride 105, Carbon Dioxide 29.0, Anion Gap 5, BUN 12, Creatinine 0.79, Estim Creat Clear Calc 119.95, Est GFR (MDRD) Af Amer 131, Est GFR (MDRD) Non-Af 108, BUN/Creatinine Ratio 15.2, Gluco se 123 H, Calcium 7.9 L Current Medications Acetaminophen (Tylenol) 1,000 mg PO Q8 [facility] Last Admin: 03/24/20 06:03 Dose: 1,000 mg Documented by: Aspirin (Aspirin, Baby) 81 mg PO BIDCM [facility] Last Admin: 03/24/20 08:36 Dose: 81 mg Documented by: Enteral Nutritional Formula (Ensure Surgery) 237 ml PO TIDCM [facility] Last Admin: 03/24/20 08:35 Dose: Not Given Documented by: Famotidine (Pepcid) 20 mg PO DAILY [facility] Last Admin: 03/24/20 08:36 Dose: 20 mg Documented by: Insulin Human Lispro (Humalog Nikolayikpen ([facility])) 1 - 6 unit SC Q4H PRN PRN; Protocol PRN Reason: BG>/= 180, SEE PROTOCOL Ketorolac Tromethamine (Toradol ([facility])) 15 mg IV Q6H PRN PRN PRN Reason: Pain Score 1-5/10 Stop: 03/24/20 18:01 [facility]oxicam ([facility]obic[facility] Morphine Sulfate () 2 - 4 mg IV Q2H PRN PRN PRN Reason: Pain Score 4-10/10 Last Admin: 03/23/20 20:47 Dose: 2 mg Documented by: Ondansetron HCl (Zofran) 4 mg IV Q8H PRN PRN PRN Reason: NAUSEA Oxycodone HCl (Oxyir) 5 - 10 mg PO Q4H PRN PRN PRN Reason: Pain Score 4-10/10 Last Admin: 03/24/20 06:03 Dose: 10 mg Documented by: Promethazine HCl (Phenergan) 12.5 mg IM Q6H PRN PRN; Protocol PRN Reason: NAUSEA/VOMITING Senna/Docusate Sodium (Senokot-S, Claudia-Colace) 2 tablet PO BID [facility] Last Admin: 03/24/20 08:36 Dose: 2 tablet Documented by: Sodium Chloride () 10 - 40 ml IV UD PRN PRN Reason: SALINE FLUSH Medical Necessity - Tobacco Use Smoking Status: Never smoker Tobacco Use: Non-smoker Assessment/Plan 1. S/P right hip explant with placement of antibiotic spacer POD #1 2. Continue Pain Medications: Tylenol, meloxicam, oxycodone 3. DVT Prophylaxis: Take 81 mg aspirin twice daily for 4 weeks postoperatively for DVT prophylaxis 4. PT/OT: Toe-touch weightbearing right lower extremity 2 weeks postoperatively followed by partial weightbearing after his 2-week follow-up. 5. H & H: 10.5/32.8, asymptomatic. Secondary to acute blood loss from surgery 6. Encouraged Incentive Spirometry 7. Consultation with infectious disease: Cultures are currently pending. Plan will be for placement of PICC line and IV antibiotics per infectious disease. 8. Disposition: Plan will be for discharge home with home health once patient has had PICC line established and antibiotics prescribed. Case management is involved with assistance with home health. Probable discharge tomorrow if everything is lined up for patient and he is stable.
[2020-03-24] MEDS: Cefazolin 2 GM in 0.9% Normal Saline 100 ML IV ×2 (10:22→22:39)
[2020-03-24] MEDS: 0.9% Saline Lock 10 ML Syringe IV (10:23)
--- NOTE | 2020-03-24 10:46 | PCM.HP.ID ---
Problem List (1) Infected prosthetic hip Status: Acute Reason for Consult: R hip pji Consulted by: Dr. 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 Taken to OR 01/07, discharged on 6 weeks of iv cefazolin. Taken back for debridement of sinus tracts on 02/02. After 6 weeks of iv abx, changed to tid keflex. Developed progressive R hip pain again, taken back to OR 03/23 for spacer placement. No fever, no other joint pain, no redness or drainage recently. Full ROS performed and neg except as noted above. - Medical History Surgical History: reviewed Allergies/Adverse Reactions: Allergies No Known Allergies Allergy (Verified 03/23/20 11:43) Home Medications: Ambulatory Orders Medication Instructions Recorded RX: Lisinopril [Zestril] 10 mg PO DAILY 01/07/20 RX: Naproxen [Naprosyn] 500 mg PO DAILY PRN PRN 01/07/20 Multivitamin with Minerals 1 ea PO DAILY 03/22/20 [Multiple Vitamin] RX: Acetaminophen [Tylenol] 1,000 mg PO DAILY 03/22/20 Cefazolin Sodium in 0.9 % NaCl 2 gm IV Q8H 40 Days #120 syringe 03/24/20 [Cefazolin 2 G/10 ml-Ns Syringe] RX: Rifampin 300 mg PO BID #80 cap 03/24/20 - Social History Tobacco Use: non-smoker Vital Signs Temp Pulse Resp BP Pulse Ox 98.1 F 75 18 141/69 H 97 03/24/20 08:35 03/24/20 08:35 03/24/20 08:35 03/24/20 08:35 03/24/20 08:35 Oxygen Flow Rate (L/min) 6 Oxygen Delivery Method Room Air Weight: 111.4 kg Body Mass Index (BMI) 31.5 Microbiology Past 72 Hours 03/23/20 16:30 Gram Stain - Final Tissue - Hip 03/23/20 16:30 Gram Stain - Final Tissue - Hip 03/23/20 16:30 Gram Stain - Final Wound Drainage - Hip 03/23/20 16:30 Gram Stain - Final Tissue - Hip Laboratory Tests Past 24 Hrs 03/23/20 03/24/20 03/24/20 16:30 05:30 05:30 WBC 8.7 RBC 3.98 L Hgb 10.5 L Hct 32.8 L MCV 82.4 MCH 26.4 L MCHC 32.0 RDW Std Deviation 43.4 RDW Coeff of Chely 14.5 Plt Count 333 MPV 8.2 Sodium 139 Potassium 4.0 Chloride 105 Carbon Dioxide 29.0 Anion Gap 5 BUN 12 Creatinine 0.79 Estim Creat Clear Calc 119.95 Est GFR (MDRD) Af Amer 131 Est GFR (MDRD) Non-Af 108 BUN/Creatinine Ratio 15.2 Glucose 123 H Calcium 7.9 L Fluid Source Cancelled Fluid Color Cancelled Fluid Appearance Cancelled Fluid WBC Cancelled Fluid RBC Cancelled Fluid Tot Cell Count Cancelled Fld Polynuclear WBCs # Cancelled Fld Polynuclear WBCs % Cancelled Fluid Mononuclear WBCs Cancelled Fld Mononuclear WBCs % Cancelled Fluid Neutrophils Cancelled Fluid Lymphocytes Cancelled Fluid Monocytes Cancelled Fluid Plasma Cells Cancelled Fluid Macrophages Cancelled Fld Mesothelial Cells Cancelled Fluid Other Cells Cancelled Fl Pathologist Comment Cancelled Fluid Comment 2 Cancelled - Other Studies Radiology: [] reviewed Other Studies: [] Route of nutrition/ use of supplements: [] Nutritional Intake: [] IV Site: [] Mendoza Catheter: [] - Physical Exam General: Alert, Oriented x3, Cooperative, No apparent distress HEENT: Atraumatic, PERRLA, EOMI Neck: Supple, No Nodes Lungs: Clear to auscultation, Normal air movement Cardiovascular: Regular rate, Regular Rhythm Abdomen: Soft, Non Tender, Non-Distended Extremities: No edema Skin: Incision - bandaged IV Site: Peripheral, without redness Musculoskeletal: No Tenderness to Palpation of Joints or Extremities Neurological: Cranial nerves II-XII grossly intact - Assessment/Plan Antibiotics: [] Assessment/Plan: [] R hip MSSA PJI - revision 01/08/20 for infection complicated by mssa bacteremia. Now s/p spacer placement 03/23/[address] Quinn; purulence seen in OR. Will get bcx x2, start iv vanc, cefazolin, and rifampin. If only mssa is seen, plan will be for 6-8 weeks of iv cefazolin and po rifampin, tentative stop date 05/04/20 with weekly bmp, cbc, LFT, esr. Plan on picc tomorrow. Will follow, thank you, d/w transplant case manager and wrote rx.
--- NOTE | 2020-03-24 11:00 | CASEMGMT ---
RN DARREN Face to Face with patient for initial transition planning/care coordination assessment. RN CM introduced self and role at [facility]. Patient lying in bed, alert and oriented, at bedside. Patient willing to participate in assessment and is able to answer all questions appropriately. Care providers, pharmacy, and demographics verified. Patient wishes to discharge home with HHC for IV ATBs. [facility] and [employer] care infusion company that he has previously been with. Patient states he has no further needs or concerns at this time. CM to follow for discharge planning needs that may arise. PCP: Gilbert Specialists: shaw Quinn; JOSEFA Segundo Preferred Pharmacy: [facility] Insurance: [employer] Prescription Benefit: yes Living Will/HPOA: none LNOK: Living Arrangements: Patient lives with in 2 story home with bed and bath on 1st floor with 3 steps to enter the home. Transportation: DME/HHC: Patient states he has walker and raised toilet at home. Patient requesting crutches, will update ortho and request script. Patient has previously had HHC with [facility]. Disposition Plan: Patient to discharge with home health, family support, and follow-up plan in place. Felicity DURAN, RN, CM
[2020-03-24] MEDS: rifAMPin 300 MG Capsule PO ×2 (11:11→22:19)
--- NOTE | 2020-03-24 14:00 | CASEMGMT ---
RN CM called and sent referral to [facility] and they are able to accept that patient. RN CM sent referral to [facility] for IV ATB setup. RN DARREN awaiting call back. RN CM will continue to follow this patient and plan for safe discharge.
--- NOTE | 2020-03-24 14:18 | PHA.PHARE_ITS ---
Consult Pharmacy has been consulted to manage selected antiobiotic: Vancomycin Type of Consult: New start Suspected Infection: Bacteremia Prior Doses of Antibiotics Received/Current Regimen: 1750mg iv x 1 preop 03.23.20 and 2000mg iv x 1 as loading dose 03.24.20 with new c onsult for Rx to dose vanco. Labs: Sodium 139 mmol/L (136-145) 03/24/20 05:30 Potassium 4.0 mmol/L (3.5-5.1) 03/24/20 05:30 Chloride 105 mmol/L (98-107) 03/24/20 05:30 Carbon Dioxide 29.0 mmol/L (21.0-32.0) 03/24/20 05:30 Anion Gap 5 (5-15) 03/24/20 05:30 BUN 12 mg/dL (7-18) 03/24/20 05:30 Creatinine 0.79 mg/dL (0.70-1.30) 03/24/20 05:30 Est GFR (MDRD) Af Amer 131 mL/min (>60) 03/24/20 05:30 Est GFR (MDRD) Non-Af 108 mL/min (>60) 03/24/20 05:30 BUN/Creatinine Ratio 15.2 RATIO (10-20) 03/24/20 05:30 Glucose 123 mg/dL (74-106) H 03/24/20 05:30 Microbiology: Microbiology 03/23/20 11:20 Swab (Method) Nasal Screen MRSA/MSSA - Final 03/23/20 16:30 Tissue - Hip Gram Stain - Final 03/23/20 16:30 Tissue - Hip Wound Culture - Preliminary No growth-Final to follow 03/23/20 16:30 Tissue - Hip Gram Stain - Final 03/23/20 16:30 Tissue - Hip Wound Culture - Preliminary No growth-Final to follow 03/23/20 16:30 Wound Drainage - Hip Gram Stain - Final 03/23/20 16:30 Wound Drainage - Hip Wound Culture - Preliminary No growth-Final to follow 03/23/20 16:30 Tissue - Hip Gram Stain - Final Weight used for dosin kg Estimated Creatinine Clearance: >100ml/min Goal Trough: 15-20 mcg/mL Pharmacy Plan for Drug Dosing: Will begin 1500mg iv q8h per protocol and get trough level on 03.25.20 before 4th dose. Pharmacy Service will continue to monitor and adjust dosing as required. Follow-Up Labs: Trough Vancomycin - 03.25.20 @1130 before 1200 dose
[2020-03-24 16:02] VITALS: BP 130/71; PULSE 67; RESP 18; TEMP 36.8; O2SAT 99
[2020-03-24] MEDS: Ensure Surgery 237 ML LIQUID PO (16:08)
[2020-03-24 20:45] VITALS: BP 139/75; PULSE 74; RESP 18; TEMP 36.8; O2SAT 98
[2020-03-25] MEDS: oxyCODONE 5 MG Tablet PO ×2 (00:16→07:37)
[2020-03-25 02:49] VITALS: BP 103/55; PULSE 74; RESP 16; TEMP 37; O2SAT 95
[2020-03-25 05:48] LABS: Hematocrit 29.6 % (40-54); Hemoglobin 9.3 g/dL (13.0-16.5); Mean Corp Hgb Conc 31.4 g/dL (32-36); Mean Corpuscular Hgb 26.1 pg (27.0-32.0); Mean Corpuscular Volume 82.9 fL (80-94); Mean Platelet Vol. 8.3 fl (6.2-12.0); Platelet Count 251 K/mm3 (150-450); RBC Distribution Width CV 14.6 % (11.6-14.6); RBC Distribution Width SD 44.6 fl (35.1-43.9); Red Blood Count 3.57 M/mm3 (4.6-6.2); White Blood Count 5.1 K/mm3 (4.4-11.0)
[2020-03-25] MEDS: Acetaminophen 500 MG Tablet 1000 MG PO ×2 (06:45→13:30)
[2020-03-25] MEDS: Cefazolin 2 GM in 0.9% Normal Saline 100 ML IV ×2 (07:01→13:34)
[2020-03-25 08:03] VITALS: BP 129/71; PULSE 77; RESP 18; TEMP 37.2; O2SAT 98
[2020-03-25] MEDS: Meloxicam 7.5 MG Tablet PO (08:07)
[2020-03-25] MEDS: Aspirin 81 MG TAB.CHEW PO (08:07)
[2020-03-25] MEDS: Famotidine 20 MG Tablet PO (08:07)
[2020-03-25] MEDS: rifAMPin 300 MG Capsule PO (08:13)
[2020-03-25] MEDS: Senna/Docusate Sodium 1 Tablet 2 TABLET PO (08:13)
--- NOTE | 2020-03-25 09:07 | NURSING ---
Pt c/o dizziness while sitting in the chair. BP stable 137/74. Scopolamine patch removed behind right ear. will monitor.
[2020-03-25 12:28] LABS: Vancomycin, Trough Level 15.8 ug/mL (5.0-15.0)
--- NOTE | 2020-03-25 13:05 | PN.ORTHO_ITS ---
Patient Problems: Active and Suspected Problems Infected prosthetic hip (Acute) Subjective: The patient was sitting in chair upon examination. Patient denies chest pain, shortness of breath, nausea, vomiting or calf pain. The patient states he does have intermittent dizziness. He denies dizziness currently. Pain is controlled on medications. No adverse events overnight. He has worked with formal physical therapy today twice to learn how to ambulate with crutches with toe- touch weightbearing. Objective: Vital signs stable. Patient is afebrile. Patient is able to plantar flex and dorsiflex actively. Sensation is intact to light touch to saphenous, sural, superficial and deep peroneal and tibial nerve distributions. Dressing is clean, dry and intact. Negative Homans bilaterally. Negative signs and symptoms of DVT. - Physical Exam Vitals/I&O's: Vital Signs Temp Pulse Resp BP Pulse Ox 99.0 F 77 18 129/71 H 98 03/25/20 08:03 03/25/20 08:03 03/25/20 08:03 03/25/20 08:03 03/25/20 08:03 Oxygen Flow Rate (L/min) 6 Oxygen Delivery Method Room Air Weight: 111.4 kg Body Mass Index (BMI) 31.5 Intake and Output for Last 24 Hours 03/23/20 03/24/20 03/25/20 23:59 23:59 23:59 Intake Total 5886.50 / 5886.50 5045.25 / 5045.25 1146.50 / 1146.50 Output Total 975 / 975 4400 / 4400 1150 / 1150 Balance 4911.50 / 4911.50 645.25 / 645.25 -3.50 / -3.50 General: Alert, Oriented x3, Cooperative Psych/Mental Status: Appropriate Microbiology Past 72 Hours 03/23/20 16:30 Tissue - Hip Gram Stain - Final 03/23/20 16:30 Tissue - Hip Wound Culture - Preliminary No growth-Final to follow 03/23/20 16:30 Tissue - Hip Gram Stain - Final 03/23/20 16:30 Tissue - Hip Wound Culture - Preliminary No growth-Final to follow 03/23/20 16:30 Wound Drainage - Hip Gram Stain - Final 03/23/20 16:30 Wound Drainage - Hip Wound Culture - Preliminary Staphylococcus aureus 03/23/20 16:30 Tissue - Hip Gram Stain - Final 03/23/20 16:30 Tissue - Hip Wound Culture - Final Staphylococcus aureus 03/23/20 11:20 Swab (Method) Nasal Screen MRSA/MSSA - Final Laboratory Results 03/25/20 05:34: WBC 5.1, RBC 3.57 L, Hgb 9.3 L, Hct 29.6 L, MCV 82.9, MCH 26.1 L , MCHC 31.4 L, RDW Std Deviation 44.6 H, RDW Coeff of Chely 14.6, Plt Count 251, MPV 8.3 03/25/20 11:30: Vancomycin Trough 15.8 H Current Medications Acetaminophen (Tylenol) 1,000 mg PO Q8 [facility] Last Admin: 03/25/20 06:45 Dose: 1,000 mg Documented by: Aspirin (Aspirin, Baby) 81 mg PO BIDCM [facility] Last Admin: 03/25/20 08:07 Dose: 81 mg Documented by: Enteral Nutritional Formula (Ensure Surgery) 237 ml PO TIDCM [facility] Last Admin: 03/25/20 12:51 Dose: Not Given Documented by: Famotidine (Pepcid) 20 mg PO DAILY [facility] Last Admin: 03/25/20 08:07 Dose: 20 mg Documented by: Vancomycin IV Pharmacy to Dose (1 ea/ Sodium Chloride) 500 mls @ 250 mls/hr IV PRN PRN; Protocol PRN Reason: Rx to Dose Cefazolin Sodium 2 gm/ Sodium (Chloride) 110 mls @ 150 mls/hr IV Q8 [facility] Last Infusion: 03/25/20 07:57 Dose: Infused Documented by: Sodium Chloride () 250 mls @ 15 mls/hr IV .[id number] PRN PRN Reason: Saline Flush Last Infusion: 03/25/20 12:54 Dose: 0 mls/hr Documented by: Sodium Chloride () 250 mls @ 15 mls/hr IV .[id number] PRN PRN Reason: Additional IVPB Infusion Vancomycin HCl 1,500 mg/ (Sodium Chloride) 530 mls @ 250 mls/hr IV Q8H [facility] Last Admin: 03/25/20 12:48 Dose: 250 mls/hr Documented by: Insulin Human Lispro (Humalog Zenpen (Bkc)) 1 - 6 unit SC Q4H PRN PRN; Protocol PRN Reason: BG>/= 180, SEE PROTOCOL [facility] ([facility]) [facility] Last Admin: 03/25/20 08:07 Dose: 7.5 mg Documented by: Morphine Sulfate () 2 - 4 mg IV Q2H PRN PRN PRN Reason: Pain Score 4-10/10 Last Admin: 03/23/20 20:47 Dose: 2 mg Documented by: Ondansetron HCl (Zofran) 4 mg IV Q8H PRN PRN PRN Reason: NAUSEA Oxycodone HCl (Oxyir) 5 - 10 mg PO Q4H PRN PRN PRN Reason: Pain Score 4-10/10 Last Admin: 03/25/20 07:37 Dose: 10 mg Documented by: Promethazine HCl (Phenergan) 12.5 mg IM Q6H PRN PRN; Protocol PRN Reason: NAUSEA/VOMITING Rifampin (Rifadin) 300 mg PO BID [facility] Last Admin: 03/25/20 08:13 Dose: 300 mg Documented by: Senna/Docusate Sodium (Senokot-S, Claudia-Colace) 2 tablet PO BID [facility] Last Admin: 03/25/20 08:13 Dose: 2 tablet Documented by: Sodium Chloride () 10 - 40 ml IV UD PRN PRN Reason: SALINE FLUSH Last Admin: 03/24/20 10:23 Dose: 10 ml Documented by: Medical Necessity - Tobacco Use Smoking Status: Never smoker Tobacco Use: Non-smoker Assessment/Plan All Active Problems Infected prosthetic hip (Acute) 1. Status post debridement right total hip replacement with placement of antibiotic spacer post operative day #2. 2. Continue pain medications: Tylenol and oxycodone. The patient was also given a prescription for meloxicam. 3. DVT prophylaxis: 81 mg twice daily. 4. PT/OT: Toe touch weightbearing right lower extremity for 2 weeks postoperatively followed by partial weightbearing. 5. H & H: 9.3/29.6, patient does have intermittent dizziness. 6. WBCs: 5.1, temperature is 99.0 ?F. 7. Encouraged incentive spirometry. 8. Postoperative drainage: The dressing is clean, dry and intact. Patient may shower over dressing 24 hours postoperatively as long as the dressing is intact to the skin. Remove the dressing 5 days postoperatively and at that time he should only use gentle soap and water over the incision. 9. Disposition: The patient will be discharged today following the placement of the PICC line. Dr. Jean-Baptiste place a prescription in the chart for antibiotics as well as E scribed another to [facility]. Case management is assisting with establishing home health. Prescriptions were sent to [facility] on [facility]. The patient will follow-up per postop instructions. Orders were placed in chart. I have reviewed the [place] Automated Rx Reporting System (OARRS) report for this patient for refill pattern and other prescriber involvement as part of the appropriate surveillance for the provision of acute and chronic controlled medications. The report was requested and reviewed on the date of this entry and was considered in the prescribing process.
--- NOTE | 2020-03-25 13:17 | DCINST_ITS ---
Discharge Diet: No Restrictions Discharge Activity: May Not Drive - while taking narcotic pain medications. May shower in (days): 1 - only if incision is dry and without drainage. Do NOT soak/submerge in tub/pool/caro/stream/hot tub. Ice area for (Minutes): 20 Weight Bearing Status: Toe touch weight bearing Additional Activity Instructions:: Wear elastic stockings for 2 weeks. DO NOT use alcohol with narcotic pain medication. DO NOT make important decisions while taking narcotic medication. If you have problems with taking your medication (rash, itching, nausea, etc.) call the office at once. Call your doctor if your incision/area has: Increased Pain/ Swelling, Increased Redness, Foul Smelling Discharge Call your doctor if you observe: Fever of 101 or Higher Remove Dressing in (days):: 5 Cleanse incision/area with: Soap & Water Allergies/Adverse Reactions: Allergies No Known Allergies Allergy (Verified 03/23/20 11:43) Medications to take at Discharge Lisinopril [Zestril] 10 mg PO DAILY 01/07/20 Multivitamin with Minerals [Multiple Vitamin] 1 ea PO DAILY 03/22/20 Cefazolin Sodium in 0.9 % NaCl [Cefazolin 2 G/10 ml-Ns Syringe] 2 gm IV Q8H 40 Days #120 syringe 03/24/20 Rifampin 300 mg PO BID #80 cap 03/24/20 Acetaminophen [Tylenol] 1,000 mg PO Q8 #100 tab 03/25/20 Aspirin [Aspirin, Baby] 81 mg PO BIDCM 30 Days #60 tab.chew 03/25/20 Famotidine [Pepcid] 20 mg PO DAILY 30 Days #30 tab 03/25/20 Meloxicam [Mobic] 7.5 mg PO BIDCM 30 Days #60 tab 03/25/20 Oxycodone [Oxyir] 5 - 10 mg PO Q4H PRN PRN 6 Days #72 tab 03/25/20 Senna/Docusate Sodium [Senokot-S] 2 tab PO BID 2 Days #10 tab 03/25/20 The following prescriptions were given: Aspirin [Aspirin, Baby] 81 mg PO BIDCM 30 Days #60 tab.chew Transmission Status: Sent to [facility]/pharmacy #[id number] Cefazolin Sodium in 0.9 % NaCl [Cefazolin 2 G/10 ml-Ns Syringe] 2 gm IV Q8H 40 Days #120 syringe Prescription Printed Meloxicam [Mobic] 7.5 mg PO BIDCM 30 Days #60 tab Transmission Status: Sent to [facility]/pharmacy #[id number] Oxycodone [Oxyir] 5 - 10 mg PO Q4H PRN PRN 6 Days #72 tab PRN Reason: Pain Score 4-10/10 Transmission Status: Received by [id number] Famotidine [Pepcid] 20 mg PO DAILY 30 Days #30 tab Transmission Status: Sent to [facility]pharmacy #[id number] Rifampin 300 mg PO BID #80 cap Transmission Status: Received by [facility]pharmacy [facility][id number] Senna/Docusate Sodium [Senokot-S] 2 tab PO BID 2 Days #10 tab Transmission Status: Sent to [facility]acy [id number] Acetaminophen [Tylenol] 1,000 mg PO Q8 #100 tab Transmission Status: Sent to [facility]pharmacy #[id number] Primary Care Physician: Juan Hunt MD [Primary Care Provider] - Test Results: Test results from this visit will be discussed in further detail at your follow- up appointment, if applicable. Please Follow Up With: Linus Quinn When: April 07, 2020 at 08:15
--- NOTE | 2020-03-25 13:49 | PN.ID_ITS ---
Patient Problems: Active and Suspected Problems Infected prosthetic hip (Acute) Subjective: Feeling better, no fever, no n/v/d. - Physical Exam Vitals/I&O's: Vital Signs Temp Pulse Resp BP Pulse Ox 99.0 F 77 18 129/71 H 98 03/25/20 08:03 03/25/20 08:03 03/25/20 08:03 03/25/20 08:03 03/25/20 08:03 Oxygen Flow Rate (L/min) 6 Oxygen Delivery Method Room Air Weight: 111.4 kg Body Mass Index (BMI) 31.5 Intake and Output for Last 24 Hours 03/23/20 03/24/20 03/25/20 23:59 23:59 23:59 Intake Total 5886.50 / 5886.50 5045.25 / 5045.25 1342.33 / 1342.33 Output Total 975 / 975 4400 / 4400 1150 / 1150 Balance 4911.50 / 4911.50 645.25 / 645.25 192.33 / 192.33 General: Alert, Cooperative, No apparent distress Lungs: Clear to auscultation, Normal air movement Cardiovascular: Regular rate, Regular Rhythm Abdomen: Soft, Non Tender, Non-Distended Skin: No rashes Microbiology Past 72 Hours 03/23/20 16:30 Tissue - Hip Gram Stain - Final 03/23/20 16:30 Tissue - Hip Wound Culture - Preliminary No growth-Final to follow 03/23/20 16:30 Tissue - Hip Gram Stain - Final 03/23/20 16:30 Tissue - Hip Wound Culture - Preliminary No growth-Final to follow 03/23/20 16:30 Wound Drainage - Hip Gram Stain - Final 03/23/20 16:30 Wound Drainage - Hip Wound Culture - Preliminary Staphylococcus aureus 03/23/20 16:30 Tissue - Hip Gram Stain - Final 03/23/20 16:30 Tissue - Hip Wound Culture - Final Staphylococcus aureus 03/23/20 11:20 Swab (Method) Nasal Screen MRSA/MSSA - Final Laboratory Results 03/25/20 05:34: WBC 5.1, RBC 3.57 L, Hgb 9.3 L, Hct 29.6 L, MCV 82.9, MCH 26.1 L , MCHC 31.4 L, RDW Std Deviation 44.6 H, RDW Coeff of Chely 14.6, Plt Count 251, MPV 8.3 03/25/20 11:30: Vancomycin Trough 15.8 H Current Medications Acetaminophen (Tylenol) 1,000 mg PO Q8 [facility] Last Admin: 03/25/20 13:30 Dose: 1,000 mg Documented by: Aspirin (Aspirin, Baby) 81 mg PO BIDCM [facility] Last Admin: 03/25/20 08:07 Dose: 81 mg Documented by: Enteral Nutritional Formula (Ensure Surgery) 237 ml PO TIDCM [facility] Last Admin: 03/25/20 12:51 Dose: Not Given Documented by: Famotidine (Pepcid) 20 mg PO DAILY [facility] Last Admin: 03/25/20 08:07 Dose: 20 mg Documented by: Cefazolin Sodium 2 gm/ Sodium (Chloride) 110 mls @ 150 mls/hr IV Q8 [facility] Last Admin: 03/25/20 13:34 Dose: 150 mls/hr Documented by: Sodium Chloride () 250 mls @ 15 mls/hr IV .[id number] PRN PRN Reason: Saline Flush Last Infusion: 03/25/20 12:54 Dose: 0 mls/hr Documented by: Sodium Chloride () 250 mls @ 15 mls/hr IV .[id number] PRN PRN Reason: Additional IVPB Infusion Insulin Human Lispro (Humalog Kwikpen (Bkc)) 1 - 6 unit SC Q4H PRN PRN; Protocol PRN Reason: BG>/= 180, SEE PROTOCOL [facility] ([facility] Admin: 03/25/20 08:07 Dose: 7.5 mg Documented by: Morphine Sulfate () 2 - 4 mg IV Q2H PRN PRN PRN Reason: Pain Score 4-10/10 Last Admin: 03/23/20 20:47 Dose: 2 mg Documented by: Ondansetron HCl (Zofran) 4 mg IV Q8H PRN PRN PRN Reason: NAUSEA Oxycodone HCl (Oxyir) 5 - 10 mg PO Q4H PRN PRN PRN Reason: Pain Score 4-10/10 Last Admin: 03/25/20 07:37 Dose: 10 mg Documented by: Promethazine HCl (Phenergan) 12.5 mg IM Q6H PRN PRN; Protocol PRN Reason: NAUSEA/VOMITING Rifampin (Rifadin) 300 mg PO BID [facility] Last Admin: 03/25/20 08:13 Dose: 300 mg Documented by: Senna/Docusate Sodium (Senokot-S, Claudia-Colace) 2 tablet PO BID [facility] Last Admin: 03/25/20 08:13 Dose: 2 tablet Documented by: Sodium Chloride () 10 - 40 ml IV UD PRN PRN Reason: SALINE FLUSH Last Admin: 03/24/20 10:23 Dose: 10 ml Documented by: Medical Necessity - Tobacco Use Smoking Status: Never smoker Tobacco Use: Non-smoker Route of nutrition/ use of supplements: [] Nutritional Intake: [] IV Site: [] Mendoza Catheter: [] - Assessment/Plan Antibiotics: [] Assessment/Plan: [] R hip MSSA PJI - revision 01/08/20 for infection complicated by mssa bacteremia. Now s/p spacer placement 03/23/[address] Quinn; purulence seen in OR. Cont cefazolin and rifampin. Plan will be for 6-8 weeks of iv cefazolin and po rifampin, tentative stop date 05/04/20 with weekly bmp, cbc, LFT, esr. Picc today. ID followup with me at [facility] wound center in 2 weeks. Will follow, d/w case finisher
--- NOTE | 2020-03-25 14:04 | CHAPLAIN ---
Type of Pastoral Visit _x__ Initial Visit ___ Follow-up Visit ___ On-call Visit ___ General Patient Visit ___ Spiritual Assessment ___ Family Conference ___ Bereavement ___ Rapid Response ___ Code Blue ___ Other (describe below) Pastoral Care Referral From _x__ Patient ___ Family ___ Nurse ___ Physician ___ Host And Hostess ___ Chain Saw Operator ___ Other (describe below) Sacrament/Intervention _x__ Active listening ___ Anointing ___ Hinduism ___ Bereavement ___ Communion ___ Courtney exploration ___ ___ Life review ___ Prayer ___ Reconciliation ___ Sacrament of Sick ___ Supportive presence ___ Wedding ___ Other (describe below) Pastoral Comments
[2020-03-25 14:07] VITALS: BP 128/67; PULSE 84; RESP 18; TEMP 36.8; O2SAT 98
--- NOTE | 2020-03-25 16:52 | CASEMGMT ---
JENA BANKS faxed PICC line information to [facility] and confirmed IV ATB delivery for today. JENA BANKS updated patient regarding planned delivery for ATB this evening. Patient is confident in administering ATB as he has just recently completed IV ATBs at home. JENA BANKS called and updated [facility] regarding discharege for today.
== END 2020-03-25 15:50 | disposition home health service (06) | DRG 465 ==
LOC: ACINP 11:21 → MS3 03-24 12:30
PROVIDERS: Internal Medicine Infectious Disease; Admitting Provider Specialist; PCP Family Medicine; Referring Provider Specialist; Visit Provider Specialist
PROC: 0SP90JZ Removal of Synthetic Substitute from Right Hip Joint, Open Approach (ICD-10-PCS; CPT 27134; principal; 2020-03-23 12:35)
DX: T84.51XA Infection and inflammatory reaction due to internal right hip prosthesis, initial encounter (principal); B95.61 Methicillin susceptible Staphylococcus aureus infection as the cause of diseases classified elsewhere; Y83.1 Surgical operation with implant of artificial internal device as the cause of abnormal reaction of the patient, or of later complication, without mention of misadventure at the time of the procedure; I10 Essential (primary) hypertension; Z96.641 Presence of right artificial hip joint; Z79.899 Other long term (current) drug therapy; Z87.891 Personal history of nicotine dependence
CPT/HCPCS: 36415; 36569; 73502; 73552; 76000; 80048; 80202; 82962; 85027; 87015; 87040; 87070; 87075; 87077; 87081; 87102; 87116; 87186; 87205; 87206; 97116; 97162; 97166; 97530; 97535; 99251; 99406; C1776; J7040; J7050; J7120; A4216; G0463; J2405; J3260

== ENCOUNTER → 2020-03-28 | Outpatient (CLI) | payer BC, SELFPAY ==
[2020-03-23 11:43] VITALS: BMI 31.5
[2020-03-28 17:14] LABS: AST(SGOT) 31 U/L (15-37); Alanine Aminotransfer ALT/SGPT 46 U/L (16-61); Albumin, Serum 3.1 g/dL (3.2-5.0); Alkaline Phosphatase 150 U/L (45-117); Anion Gap 8 (5-15); BUN 16 mg/dL (7-18); BUN/Creat Ratio 16.6 RATIO (10-20); Calcium,Total 8.9 mg/dL (8.5-10.1); Chloride 104 mmol/L (98-107); Creatinine, Serum 0.96 mg/dL (0.70-1.30); EST Glomerular Filtration Rate 85 mL/min (>60); Est Glom Filt Rate - Afr Amer 103 mL/min (>60); Globulin 3.6 g/dL (2.2-4.2); Glucose 121 mg/dL (74-106); Potassium 4.1 mmol/L (3.5-5.1); Protein, Total 6.7 g/dL (6.4-8.2); Sodium Level 141 mmol/L (136-145)
[2020-03-28 17:16] LABS: Hematocrit 32.7 % (40-54); Hemoglobin 10.3 g/dL (13.0-16.5); Mean Corp Hgb Conc 31.5 g/dL (32-36); Mean Corpuscular Hgb 26.2 pg (27.0-32.0); Mean Corpuscular Volume 83.2 fL (80-94); Mean Platelet Vol. 8.5 fl (6.2-12.0); Platelet Count 498 K/mm3 (150-450); RBC Distribution Width CV 14.6 % (11.6-14.6); RBC Distribution Width SD 43.8 fl (35.1-43.9); Red Blood Count 3.93 M/mm3 (4.6-6.2); White Blood Count 6.5 K/mm3 (4.4-11.0)
[2020-03-28 17:27] LABS: Erythrocyte Sedimentation Rate 62 mm/hr (0-20)
== END | disposition home or self-care (01) ==
LOC: LABSPEC 15:37
PROVIDERS: PCP Family Medicine; Referring Provider Internal Medicine Infectious Disease; Visit Provider Internal Medicine Infectious Disease
DX: T84.51XD Infection and inflammatory reaction due to internal right hip prosthesis, subsequent encounter (principal)
CPT/HCPCS: 80048; 80076; 85027; 85652

== ENCOUNTER → 2020-05-05 09:30 | Outpatient (CLI) | payer BC, SELFPAY ==
[2020-03-23 11:43] VITALS: BMI 31.5
[2020-05-05 12:40] LABS: Erythrocyte Sedimentation Rate 3 mm/hr (0-20)
[2020-05-05 12:43] LABS: Absolute Lymphocyte Count 0.83 X10^3/uL (0.83-4.51); Absolute Neutrophil Count 2.5 X10^3/uL (2.0-7.7); Basophil# 0.05 X10^3/uL; Basophil% 1.3 % (0-1); Eosinophils% 2.6 % (0-5); Hemoglobin 14.8 g/dL (13.0-16.5); Lymphocyte # 0.83 X10^3/ul (4.0); Lymphocyte % 21.7 % (19-41); Mean Corp Hgb Conc 31.5 g/dL (32-36); Mean Corpuscular Hgb 26.7 pg (27.0-32.0); Mean Corpuscular Volume 84.8 fL (80-94); Monocyte# 0.36 X10^3/uL; Monocyte% 9.4 % (0-10); NRBC Flagged by Analyzer 0 % (0-5); Neutrophil # 2.46 X10^3/uL (2.7-7.7); Neutrophil % 64.2 % (47-70); Platelet Count 224 K/mm3 (150-450); RBC Distribution Width CV 15.1 % (11.6-14.6); RBC Distribution Width SD 46.8 fl (35.1-43.9); Red Blood Count 5.54 M/mm3 (4.6-6.2); White Blood Count 3.8 K/mm3 (4.4-11.0)
[2020-05-05 13:04] LABS: CRP < 2.90 mg/L (0.0-3.0)
== END ==
PROVIDERS: PCP Family Medicine; Referring Provider Family Medicine; Visit Provider Specialist
DX: T84.51XA Infection and inflammatory reaction due to internal right hip prosthesis, initial encounter (principal)
CPT/HCPCS: 36415; 85025; 85652; 86140

== ENCOUNTER → 2020-05-17 10:47 | Outpatient (CLI) | payer BC, SELFPAY ==
[2020-03-23 11:43] VITALS: BMI 31.5
[2020-05-17 12:27] LABS: Erythrocyte Sedimentation Rate 7 mm/hr (0-20)
[2020-05-17 12:28] LABS: Absolute Lymphocyte Count 1.13 X10^3/uL (0.83-4.51); Absolute Neutrophil Count 3.3 X10^3/uL (2.0-7.7); Basophil# 0.05 X10^3/uL; Eosinophil# 0.12 X10^3/uL; Eosinophils% 2.4 % (0-5); Hematocrit 48.9 % (40-54); Lymphocyte # 1.13 X10^3/ul (4.0); Lymphocyte % 22.2 % (19-41); Mean Corp Hgb Conc 32.7 g/dL (32-36); Mean Corpuscular Hgb 27.1 pg (27.0-32.0); Mean Corpuscular Volume 82.7 fL (80-94); Mean Platelet Vol. 8.9 fl (6.2-12.0); Monocyte# 0.42 X10^3/uL; Monocyte% 8.2 % (0-10); NRBC Flagged by Analyzer 0 % (0-5); Neutrophil # 3.34 X10^3/uL (2.7-7.7); Neutrophil % 65.4 % (47-70); Platelet Count 243 K/mm3 (150-450); RBC Distribution Width CV 14.3 % (11.6-14.6); RBC Distribution Width SD 42.6 fl (35.1-43.9); Red Blood Count 5.91 M/mm3 (4.6-6.2); White Blood Count 5.1 K/mm3 (4.4-11.0)
[2020-05-17 12:39] LABS: CRP < 2.90 mg/L (0.0-3.0)
== END ==
PROVIDERS: PCP Family Medicine; Referring Provider Family Medicine; Visit Provider Specialist
DX: T84.51XA Infection and inflammatory reaction due to internal right hip prosthesis, initial encounter (principal)
CPT/HCPCS: 36415; 85025; 85652; 86140

== ENCOUNTER → 2020-06-07 08:57 | Outpatient (CLI) | payer BC, SELFPAY ==
[2020-03-23 11:43] VITALS: BMI 31.5
[2020-06-07 09:59] LABS: Absolute Lymphocyte Count 0.99 X10^3/uL (0.83-4.51); Absolute Neutrophil Count 2.8 X10^3/uL (2.0-7.7); Basophil# 0.04 X10^3/uL; Basophil% 0.9 % (0-1); Eosinophil# 0.16 X10^3/uL; Eosinophils% 3.6 % (0-5); Hematocrit 49.9 % (40-54); Lymphocyte # 0.99 X10^3/ul (4.0); Lymphocyte % 22.3 % (19-41); Mean Corp Hgb Conc 32.1 g/dL (32-36); Mean Corpuscular Hgb 26.5 pg (27.0-32.0); Mean Corpuscular Volume 82.8 fL (80-94); Mean Platelet Vol. 8.6 fl (6.2-12.0); Monocyte# 0.43 X10^3/uL; Monocyte% 9.7 % (0-10); NRBC Flagged by Analyzer 0 % (0-5); Neutrophil # 2.77 X10^3/uL (2.7-7.7); Neutrophil % 62.6 % (47-70); Platelet Count 253 K/mm3 (150-450); RBC Distribution Width CV 13.9 % (11.6-14.6); RBC Distribution Width SD 42.1 fl (35.1-43.9); Red Blood Count 6.03 M/mm3 (4.6-6.2); White Blood Count 4.4 K/mm3 (4.4-11.0)
[2020-06-07 10:10] LABS: Anion Gap 5 (5-15); BUN 12 mg/dL (7-18); BUN/Creat Ratio 11.2 RATIO (10-20); Calcium,Total 8.8 mg/dL (8.5-10.1); Chloride 111 mmol/L (98-107); Creatinine, Serum 1.07 mg/dL (0.70-1.30); EST Glomerular Filtration Rate 76 mL/min (>60); Est Glom Filt Rate - Afr Amer 92 mL/min (>60); Glucose 111 mg/dL (74-106); Sodium Level 141 mmol/L (136-145)
[2020-06-07 11:16] LABS: M R Staph aureus DNA By PCR Negative (Negative); Probe Check PASS; Specimen Processing Control PASS
== END ==
PROVIDERS: PCP Family Medicine; Visit Provider Family Medicine
DX: Z01.812 Encounter for preprocedural laboratory examination (principal)
CPT/HCPCS: 36415; 80048; 83735; 85025; 87641

== ENCOUNTER 2020-06-22 09:51 | Inpatient (IN) | payer BC, SELFPAY ==
[2020-03-23 11:43] VITALS: BMI 31.5
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
[2020-06-22] VITALS (16 sets, daily range): BP systolic 112–142; BP diastolic 65–87; PULSE 52–73; RESP 16–18; TEMP 35.8–36.7; O2SAT 96–100; BMI 31.1
[2020-06-22] MEDS: Scopolamine 1mg/72hr Patch 1 PATCH TD ×2 (10:30→10:33)
[2020-06-22] MEDS: Acetaminophen 500 MG Tablet 1000 MG PO ×2 (10:32→21:21)
[2020-06-22] MEDS: Gabapentin 600 MG Tablet PO (10:32)
[2020-06-22] MEDS: Lactated Ringers 1,000 ML 999 ML IV ×2 (10:44→16:48)
[2020-06-22 11:25] LABS: Bedside Glucose 89 mg/dL (70-110)
[2020-06-22] MEDS: Cefazolin 2 GM in 0.9% Normal Saline 100 ML IV (12:00)
[2020-06-22] MEDS: dexAMETHasone 10 MG/ML Vial IV (12:05)
[2020-06-22] MEDS: Lactated Ringers 1,000 ML 100 ML IV ×2 (12:31→13:46)
--- NOTE | 2020-06-22 14:15 | PCM.OPRPT ---
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 haul driver: Jose Rivas Type of Anesthesia:: Spinal Anesthesiologist: Josh Wolf Special Medications: 2 g Ancef, 1 g TXA at incision, 1 g TXA closure, 10 mg Decadron, joint cocktail (5 mg Duramorph, 30 mL of 0.5% Ropivicaine, 1000 units of epinephrine, 30 mg of Toradol) Estimated Blood Loss (mL): 450 Fluids Replaced: 1800 mL crystalloid Description of Procedure: Findings: Adequate reduction with stability of the hip and equal leg lengths measured intraoperatively. Components used: 1. [place] secure fit advanced size 10 stem, 132 neck angle 2. Berna tritanium 66 mm acetabular shell 2 screws 3. [place] X3 polyethylene liner for MDM 4. [place] Biolox delta 28 mm, +0 mm neck femoral head 5. [place] MDM metal liner 52H Brief history operative indications: 55-year-old male who had previous right hip replacement with subsequent infection. Patient currently has articulating antibiotic spacer with hip replacement. Patient completed IV antibiotics and showed no signs of recurrent or continued infection. Risks and benefits were discussed with the patient which included but were not limited to blood loss, DVTs, PEs, infection, neurovascular damage, and dislocation. In light of all this patient did agree to proceed with a total hip arthroplasty. Procedure: On the date of procedure the patient's R hip was marked in the preoperative area. Patient was then taken back to the operating room where anesthesia assumed control of the C-spine and airway and administered anesthetic. Patient was transferred to the operating table and placed in the lateral decubitus position with the affected hip up. The patient was secured in the bed with the lateral positioners and leg lengths were checked. The R lower extremity was then prepped out in a sterile fashion using chlorhexidine while the surgeon scrubbed. Upon reentering the room the R lower extremity was draped in the standard orthopedic fashion and the incision was marked. A timeout was called and everyone agreed upon the side, the site, the procedure be performed, antibiotics given, and patient's identity. At this time incision was made through skin, subcutaneous tissue, and fat down to fascia. The fascia was then incised and a Charley retractor was placed. At this time we carefully dissected down to the joint. There was synovial tissue. We carefully debrided the synovial tissue debriding the joint. Once he did a complete synovectomy the hip was dislocated. Once the hip was dislocated the head was disimpacted from the trunnion. The femoral stem was then removed. We then removed the cement mantle. Once this was done cultures were taken from this area. Attention was then turned to the femur where the proximal femur was appropriately exposed using a kim retractor. The estimator paperboard boxes was used to remove the lateral bone. Canal finder was used to verify the canal. The proximal femoral femur was then sequentially reamed to the 9/10 reamer broached to a size 10 broach which had an appropriate fit. The broach was left in place. Based on the patient's previous surgeries and a small area in the calcar with some bone loss we did elect to place a prophylactic cable below the lesser trochanter. Our attention was then directed to the acetabulum and the anterior retractor was placed and a Gelpi was used to retract the posterior capsule superiorly. All soft tissue debris was removed from the periphery. At this time we drilled holes in the acetabular shell. We then used an osteotome to piecemeal this and then remove it. We then remove the underlying cement mantle. Once this was done we copiously irrigated out the joint. Before doing this we also had remove the femoral approach. The acetabulum was then sequentially reamed to 66 millimeters. At this time a and 66 mm Berna Trident 2 cup was opened and impacted into place. Once it was securely fastened our attention was again turned towards the femur and the high offset neck was chosen and a MDM head with 0 mm offset was trialed. The hip was properly reduced using traction and external rotation. Stability was checked with the appropriate amount of shuck, no impingement with external rotation, and stable at 90? flexion and 90? internal rotation. Leg lengths were checked and were found to be equal on the table. Once the hip was determined to be stable the trial components were dislocated and 2 bone screws were placed in the safe zone of the acetabular component. Once it was securely fastened down the polyethylene liner was placed and security was verified. The proximal femur was again exposed and the components were removed from the wound. The final components were verified and opened. The wound was copiously irrigated out with normal saline. The acetabulum was checked for any residual debris. The final components were placed and impacted. Traction and external rotation were again used to reduce the hip. After adequate reduction the hip remained stable with appropriate leg lengths. The wound was then copiously irrigated with normal saline once more, and hemostasis was obtained. The posterior tissues were repaired through drill holes to the greater trochanter . Closure was then done using #1 Vicryl to close the fascia. A 2-0 Vicryl interrupted sutures were used to close the subcutaneous skin. Skin keesha were used for final skin closure. A sterile dressing was placed. Patient was awakened by anesthesia and transferred to the [facility]. Patient was then transferred to the PACU for recovery. Postoperative plan: Patient will get 24 hours postop antibiotics. Patient will get in-house physical therapy and will be weight-bear as tolerated. Patient will follow up in office in 2 weeks for a wound check and x-rays. During the course of the procedure the physician hand frame surgical elastic knitter (PE) played a vital role. Their intimate knowledge of my steps in the procedure aided in safe and expedient completion of the procedure. The PE played a vital rolls in positioning particularly in obtaining the appropriate lateral decubitus position. The PE was also vital in the retraction of soft tissues during the exposure and especially the femoral work as this is a vital part of the procedure to prevent complications and fractures. The PE was also vital and protecting soft tissues during times of bony cuts and reaming. He also played a vital role in closure with my direct supervision. The PE was also important during reduction and dislocation of the joint and trials intraoperatively. - Complications No intraoperative complications - Admit VTE Documentation VTE Present on Admission: No VTE Mechan Device Prophylaxis: SCD's, Thigh High IRINA Hose VTE Pharm Prophylaxis ordered?: Yes
--- NOTE | 2020-06-22 15:23 | NURSING ---
RNCM Initial Assessment: Went to bedside, patient not in room- still in procedure. RNCM to f/u for assessment completion and care coordination needs. Pepe Radford, JENACM
[2020-06-22] MEDS: Lactated Ringers 1,000 ML 125 ML IV ×2 (17:16→18:51)
--- NOTE | 2020-06-22 17:20 | RAD_ITS ---
STUDY: X-RAY - PELVIS AND RIGHT HIP REASON FOR EXAM: Male, 55 years old. POST OP TECHNIQUE: 2 views of the pelvis and hip. 5:16 PM COMPARISON: Prior radiographs of 01/08/2020 FINDINGS: There is a non-specific bowel gas pattern. Normal visualized soft tissue structures. Normal bilateral superior and inferior pubic rami. Normal pubic symphysis. Normal bilateral ischial tuberosities. Since the prior exam the acetabular cup has apparently undergone an exchange. The acetabular cup and femur remain located. There is a cerclage suture surrounding the femur just below the lesser trochanter. The intramedullary component appears intact without periprosthetic fracture. Normal postoperative soft tissue changes. Lateral incision closed with keesha. RAD/Hip Min 2 Views (Portable) IMPRESSION: Status post total hip revision with no untoward bone, joint or hardware findings. Electronically Signed: Angella Russell MD at 17:44 EST , Service support ,
[2020-06-22] MEDS: Ensure Surgery 237 ML LIQUID PO (18:43)
[2020-06-22] MEDS: Aspirin 81 MG TAB.CHEW PO (18:43)
[2020-06-22] MEDS: oxyCODONE 5 MG Tablet PO (18:59)
[2020-06-22] MEDS: Cefazolin 1 GM/50 ML BAG IV (21:21)
[2020-06-22] MEDS: Senna/Docusate Sodium 1 Tablet 2 TABLET PO (21:21)
[2020-06-22] MEDS: Doxycycline 100 MG CAPSULE PO (21:22)
[2020-06-23 03:03] VITALS: BP 147/83; PULSE 87; RESP 18; TEMP 36.8; O2SAT 98
[2020-06-23] MEDS: Cefazolin 1 GM/50 ML BAG IV (03:15)
[2020-06-23] MEDS: oxyCODONE 5 MG Tablet PO ×2 (03:30→09:02)
[2020-06-23] MEDS: Acetaminophen 500 MG Tablet 1000 MG PO (06:08)
[2020-06-23 06:09] VITALS: BP 130/64; PULSE 88; RESP 17; TEMP 37; O2SAT 95
[2020-06-23 07:13] LABS: Hematocrit 36.5 % (40-54); Hemoglobin 12.1 g/dL (13.0-16.5); Mean Corp Hgb Conc 33.2 g/dL (32-36); Mean Corpuscular Hgb 27.2 pg (27.0-32.0); Mean Platelet Vol. 8.8 fl (6.2-12.0); Platelet Count 210 K/mm3 (150-450); RBC Distribution Width CV 13.7 % (11.6-14.6); RBC Distribution Width SD 40.8 fl (35.1-43.9); Red Blood Count 4.45 M/mm3 (4.6-6.2); White Blood Count 10.5 K/mm3 (4.4-11.0)
[2020-06-23 07:43] LABS: Anion Gap 6 (5-15); BUN 12 mg/dL (7-18); BUN/Creat Ratio 13.8 RATIO (10-20); Calcium,Total 8.2 mg/dL (8.5-10.1); Chloride 109 mmol/L (98-107); Creatinine, Serum 0.87 mg/dL (0.70-1.30); EST Glomerular Filtration Rate 96 mL/min (>60); Est Glom Filt Rate - Afr Amer 116 mL/min (>60); Estimated Creatinine Clearance 108.92 ml/min; Glucose 161 mg/dL (74-106); Potassium 4.2 mmol/L (3.5-5.1); Sodium Level 142 mmol/L (136-145)
[2020-06-23] MEDS: Aspirin 81 MG TAB.CHEW PO (08:51)
[2020-06-23] MEDS: Ensure Surgery 237 ML LIQUID PO (08:51)
[2020-06-23] MEDS: Doxycycline 100 MG CAPSULE PO (09:03)
[2020-06-23] MEDS: Senna/Docusate Sodium 1 Tablet 2 TABLET PO (09:03)
[2020-06-23] MEDS: Famotidine 20 MG Tablet PO (09:03)
--- NOTE | 2020-06-23 09:27 | PCM.PN.ORT ---
Subjective: The patient was sitting in bedside chair upon examination. Patient denies any chest pain, shortness of breath, dizziness, lightheadedness, nausea or vomiting, or calf pain. Pain is controlled on medications. No adverse overnight events. Overall patient is doing well. Does wish to go home today. Objective: Vital signs stable and afebrile. Patient is able to plantarflex and dorsiflex actively. Sensation is intact to light touch to saphenous, sural, superficial and deep peroneal, and tibial distribution. Dressing is clean dry and intact. Negative Homans bilaterally, negative signs and symptoms of DVT. - Physical Exam Vitals/I&O's: Vital Signs Temp Pulse Resp BP Pulse Ox 98.6 F 88 17 130/64 H 95 06/23/20 06:09 06/23/20 06:09 06/23/20 06:09 06/23/20 06:09 06/23/20 06:09 Oxygen Flow Rate (L/min) 6 Oxygen Delivery Method Room Air Weight: 109.9 kg Body Mass Index (BMI) 31.1 Intake and Output for Last 24 Hours 06/21/20 06/22/20 06/23/20 23:59 23:59 23:59 Intake Total 5726.09 / 5726.09 1109.58 / 1109.58 Output Total 950 / 950 750 / 750 Balance 4776.09 / 4776.09 359.58 / 359.58 General: Alert, Oriented x3, Cooperative, No apparent distress Microbiology Past 72 Hours 06/21/20 08:32 Interface Orders SARS-CoV-2 Antigen (Rapid) - Final Laboratory Results 06/22/20 10:41: POC Glucose 89 06/23/20 07:02: WBC 10.5, RBC 4.45 L, Hgb 12.1 L, Hct 36.5 L, MCV 82.0, MCH 27.2, MCHC 33.2, RDW Std Deviation 40.8, RDW Coeff of Chely 13.7, Plt Count 210, MPV 8.8 06/23/20 07:02: Sodium 142, Potassium 4.2, Chloride 109 H, Carbon Dioxide 27.0, Anion Gap 6, BUN 12, Creatinine 0.87, Estim Creat Clear Calc 108.92, Est GFR (MDRD) Af Amer 116, Est GFR (MDRD) Non-Af 96, BUN/Creatinine Ratio 13.8, Glucose 161 H, Calcium 8.2 L Current Medications Acetaminophen (Acetaminophen 500 Mg Tablet) 1,000 mg PO Q8 [facility] Last Admin: 06/23/20 06:08 Dose: 1,000 mg Documented by: Aspirin (Aspirin 81 Mg Tab.Chew) 81 mg PO BIDCM [facility] Last Admin: 06/23/20 08:51 Dose: 81 mg Documented by: Doxycycline Monohydrate (Doxycycline 100 Mg Capsule) 100 mg PO BID [facility] Last Admin: 06/23/20 09:03 Dose: 100 mg Documented by: Enteral Nutritional Formula (Ensure Surgery 237 Ml Liquid) 237 ml PO TIDCM [facility] Last Admin: 06/23/20 08:51 Dose: 237 ml Documented by: Famotidine (Famotidine 20 Mg Tablet) 20 mg PO DAILY [facility] Last Admin: 06/23/20 09:03 Dose: 20 mg Documented by: Sodium Chloride () 250 mls @ 15 mls/hr IV .[id number] PRN PRN Reason: Saline Flush Insulin Human Lispro (Insulin Lispro 100 Unit/Ml Insuln.Pen) 1 - 6 unit SC Q4H PRN PRN; Protocol PRN Reason: BG>/= 180, SEE PROTOCOL Ketorolac Tromethamine (Ketorolac 15 Mg/Ml Vial) 15 mg IV Q6H PRN PRN PRN Reason: Pain Score 1-3 Stop: 06/24/20 16:58 Meloxicam (Meloxicam 7.5 Mg Tablet) 7.5 mg PO BID [facility] Morphine Sulfate (Morphine 2 Mg/Ml Syringe) 2 - 4 mg IV Q2H PRN PRN PRN Reason: Pain Score 4-10 Ondansetron HCl (Ondansetron 4 Mg/2 Ml Vial) 4 mg IV Q8H PRN PRN PRN Reason: NAUSEA Oxycodone HCl (Oxycodone 5 Mg Tablet) 5 - 10 mg PO Q4H PRN PRN PRN Reason: Pain Score 4-10 Last Admin: 06/23/20 09:02 Dose: 10 mg Documented by: Promethazine HCl (Promethazine 25 Mg/Ml Syringe) 12.5 mg IM Q6H PRN PRN; Protocol PRN Reason: NAUSEA/VOMITING Senna/Docusate Sodium (Senna/Docusate Sodium 1 Tablet) 2 tablet PO BID [facility] Last Admin: 06/23/20 09:03 Dose: 2 tablet Documented by: Sodium Chloride (0.9% Saline Lock 10 Ml Syringe) 10 - 40 ml IV UD PRN PRN Reason: SALINE FLUSH Medical Necessity - Tobacco Use Smoking Status: Former smoker Assessment/Plan All Active Problems Infected prosthetic hip (Acute) 1. S/P right hip removal antibiotic spacer with total hip arthroplasty POD #1 2. Continue Pain Medications: Tylenol, meloxicam, oxycodone as needed 3. DVT Prophylaxis: Take 81 mg aspirin twice daily for 4 weeks postoperatively for DVT prophylaxis 4. PT/OT: Weightbearing as tolerated 5. H & H: 12.1/36.5, asymptomatic. Postoperative anemia secondary to acute blood loss from surgery without any intra operative complications. 6. Continue antibiotics while following cultures: Currently pending. Patient will use doxycycline 1 week postoperatively 7. Encouraged Incentive Spirometry 8. Disposition: Plan will be for possible discharge home today as long as patient tolerates physical therapy and pain is well controlled. Prescriptions will be E scribed to [facility] in [facility]. Patient will follow postop instructions. He has outpatient physical therapy established. I have reviewed the [place] Automated Rx Reporting System (OARRS) report for this patient for refill pattern and other prescriber involvement as part of the appropriate surveillance for the provision of acute and chronic controlled medications. The report was requested and reviewed on the date of this entry and was considered in the prescribing process.
--- NOTE | 2020-06-23 09:33 | DCINST_ITS ---
Discharge Diet: No Restrictions Discharge Activity: May Not Drive - while taking narcotic pain medications. May shower in (days): 1 - Okay to shower if dressing is intact to skin. Turn dressing away from water. Do not submerge underwater for 6 weeks postoperatively. Ice area for (Minutes): 20 - Every 1-2 hours while awake Weight Bearing Status: Weight bearing as tolerated Elevate: Operative Extremity Additional Activity Instructions:: Wear elastic stockings for 2 weeks. DO NOT use alcohol with narcotic pain medication. DO NOT make important decisions while taking narcotic medication. If you have problems with taking your medication (rash, itching, nausea, etc.) call the office at once. Call your doctor if your incision/area has: Increased Pain/ Swelling, Increased Redness, Foul Smelling Discharge Call your doctor if you observe: Fever of 101 or Higher Remove Dressing in (days):: 4 - Okay to remove dressing on June 27, 2020 Allergies/Adverse Reactions: Allergies No Known Allergies Allergy (Verified 06/22/20 10:21) Medications to take at Discharge Lisinopril [Zestril] 10 mg PO DAILY 01/07/20 Multivitamin with Minerals [Multiple Vitamin] 1 ea PO DAILY 03/22/20 Ascorbic Acid [Vitamin C] 500 mg PO DAILY 06/09/20 Zinc 50 mg PO DAILY 06/09/20 Acetaminophen [Tylenol] 1,000 mg PO Q8 tablet 06/23/20 Aspirin [Aspirin, Baby] 81 mg PO BIDCM tab 06/23/20 Doxycycline 100 mg PO BID #14 cap 06/23/20 Famotidine [Pepcid] 20 mg PO DAILY #30 tab 06/23/20 Meloxicam [Mobic] 7.5 mg PO BID #60 tab 06/23/20 Oxycodone [Oxyir] 5 - 10 mg PO Q4H PRN PRN 7 Days tablet 06/23/20 Senna/Docusate Sodium [Senokot-S] 2 tab PO BID #10 tab 06/23/20 The following prescriptions were given: Doxycycline 100 mg PO BID #14 cap Transmission Status: Pending to [id number] Meloxicam [Mobic] 7.5 mg PO BID #60 tab Transmission Status: Pending to [id number] Famotidine [Pepcid] 20 mg PO DAILY #30 tab Transmission Status: Pending to [id number] Senna/Docusate Sodium [Senokot-S] 2 tab PO BID #10 tab Transmission Status: Pending to [id number] Orders to be completed after discharge: Magnesium Time Frame: 06/09/20, Facility: [facility], Location: Laboratory Primary Care Physician: Juan Hunt MD [Primary Care Provider] - Test Results: Test results from this visit will be discussed in further detail at your follow- up appointment, if applicable. Please Follow Up With: [facility] Physical Therapy When: 06/27/20 @ 8:00 am with Helen Please Follow Up With: Jose Rivas PA-C When: 07/06/20 @ 9:30 am
[2020-06-23 09:56] VITALS: BP 119/66; PULSE 72; RESP 18; TEMP 36.4; O2SAT 98
[2020-06-23 10:00] VITALS: RESP 18
== END 2020-06-23 10:33 | disposition home or self-care (01) | DRG 467 ==
LOC: ACINP 09:52 → MS3 17:04
PROVIDERS: Admitting Provider Specialist; PCP Family Medicine; Referring Provider Specialist; Visit Provider Specialist
PROC: 0SR9029 Replacement of Right Hip Joint with Metal on Polyethylene Synthetic Substitute, Cemented, Open Approach (ICD-10-PCS; CPT 27134; principal; 2020-06-22 11:35)
DX: T84.51XA Infection and inflammatory reaction due to internal right hip prosthesis, initial encounter (principal); D62 Acute posthemorrhagic anemia; I10 Essential (primary) hypertension; Y83.1 Surgical operation with implant of artificial internal device as the cause of abnormal reaction of the patient, or of later complication, without mention of misadventure at the time of the procedure; Z87.891 Personal history of nicotine dependence; Z20.828 Contact with and (suspected) exposure to other viral communicable diseases
CPT/HCPCS: 73502; 80048; 82962; 85027; 87015; 87070; 87075; 87102; 87116; 87176; 87205; 87206; 87426; 97161; 97166; 99251; 99406; C1713; C1776; C9803; J7120; G0463

== ENCOUNTER → 2020-07-13 09:31 | Outpatient (CLI) | payer BC, SELFPAY ==
[2020-06-22 18:24] VITALS: BMI 31.1
[2020-07-13 12:48] LABS: Anion Gap 7 (5-15); BUN 16 mg/dL (7-18); Chloride 105 mmol/L (98-107); Cholesterol 221 mg/dL (200); Creatinine, Serum 0.94 mg/dL (0.70-1.30); EST Glomerular Filtration Rate 88 mL/min (>60); Est Glom Filt Rate - Afr Amer 106 mL/min (>60); Glucose 113 mg/dL (74-106); High Density Lipoprotein 46 mg/dL; PSA,Total - Annual Screen 0.72 ng/mL (0.00-4.00); Sodium Level 138 mmol/L (136-145); Triglycerides 119 mg/dL; Very Low Density Lipoprotein 24 mg/dL (5-40)
== END ==
PROVIDERS: PCP Family Medicine; Referring Provider Family Medicine; Visit Provider Family Medicine
DX: I10 Essential (primary) hypertension (principal); E29.1 Testicular hypofunction
CPT/HCPCS: 36415; 80048; 80061; 84153; 84403; G0103

== ENCOUNTER 2020-07-27 15:30 | Outpatient (RCR) | payer BC, SELFPAY ==
[2020-03-23 11:43] VITALS: BMI 31.5
[2020-06-22 18:24] VITALS: BMI 31.1
--- NOTE | 2020-06-27 09:09 | HP.PTEVAL_ITS ---
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 Date of Evaluation: 06/27/20 Physical Therapist: CHARLEE Nielson - Visit Plan Frequency: 3x /Week Duration: 2 Months Plan: 3X/ week for 8 weeks for R hip strengthening, gait training, stair progression, AROM, balance with HEP. - Subjective December 08, 2019 was his first surgery. Things were going good. 4 weeks later his hip got infected and took the hip out and put another one in. He then had to have another surgery to fix his incision. 7 weeks later his hip got infected again. They pulled the socket out this time and put the antibiotic spacer in and then DOS 06-22-2020 he got another hip on the R. This is his 5th surgery on his R hip. He is on crutches. He uses the walker around the house. His WB status is WBAT. Dr said he can wean the walker when able. He has no pain in sitting except incision pain. He has a hard time picking his R leg up. He has no pain when walking with his walker. WOMAC 81/96 84% - Pain R hip Pain Intensity (Out of 10): 1 - Objective Gait: Walks with 2 crutches with decreasedWB on the R LE. Walked without an AD with big time antalgic gait on the R LE. Walked the best with one crutch with only slight decrease stance time on the R. TU.56 seconds. R knee flexion AROM 125 degrees. R knee ext AROM -1 degrees from full extension. R knee ext MMT: 19.6 lbs L knee ext MMT: 31.1. R knee flex MMT: 8.9 lbs L kne flex MMT: 12.4. R Hip flex AROM: 75 degrees. R hip ext AROM: to Neutral. R Hip flex MMT: 6.2 lbs. R hip ext MMT: 10.9 lbs. Pt is able to sit to stand and uses the arms of the chair to help him stand - Goals Goal 1:: I HEP Goal Time Frame: 6-8 Weeks Goal 2:: Be able to walk with normal gait pattern without AD or antalgic gait Goal Time Frame: 6-8 Weeks Goal 3:: Be able to go up and down the stairs recip with 1 hand rail without any signs of weakness Goal Time Frame: 6-8 Weeks - Rehabilitation Potential Rehabilitation Potential: Good - Anticipated Interventions Patient/Client Instruction: Educate patient on: Condition, Plan of Care For the Purpose of:: To decrease pain, To increase ROM, To improve nutrient delivery to tissue, To improve muscle performance and motor function, To improve ability to perform ADL's, To increase tolerance to activity/condition/position, To improve performance and independence with ADL's, To decrease level of supervision to perform tasks, To improve ability of physical actions for home/community/work/leisure, To improve gait and locomotor functions, To improve health of tissue, To decrease soft tissue restriction, To increase flexibility/ROM, To improve balance, To improve safety with gait Therapeutic Exercise to Include: Strength training, Endurance training, Balance training, Body mechanics, Postural training, Gait and locomotor training, Active ROM, Dynamic Lumbar Stabilization For the Purpose of:: To decrease pain, To increase ROM, To improve nutrient delivery to tissue, To increase oxygenation perfusion, To improve muscle performance and motor function, To improve ability to perform ADL's, To increase tolerance to activity/condition/position, To improve performance and independence with ADL's, To decrease level of supervision to perform tasks, To improve ability of physical actions for home/community/work/leisure, To improve gait and locomotor functions, To improve health of tissue, To decrease soft tissue restriction, To improve endurance, To improve balance, To improve safety with gait Functional Training to Include: Gait training For the Purpose of:: To improve gait and locomotor functions, To improve safety with gait Thank you for the opportunity to evaluate your patient. For Medicare and Medicare HMO plans, please review the plan of care and approve it. It will need to be FAXED BACK to us at [phone] for Medicare purposes. For Medicare only, by signing this I certify the plan of care. Please let me know if there are questions or concerns regarding this plan of care. Physician Signature: Date:
--- NOTE | 2020-07-27 17:58 | HP.PTDCSUM ---
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 Discharge Date: 07/27/20 Please see the following information for a summary of their discharge status. Subjective: Pt reports that he has no pain. His hip is getting better. He has 2-3 good days in a row and then he has a day that he feels awful. His HEP: R hip Pain Intensity (Out of 10): 4 % Improvement: 75 Objective/Function: Pt still has weakness present in hip flexor, ascending stairs. Gait: slight antalgic giat. Very hard tissue on the lateral side of his hip. Goal 1:: I HEP Goal Progress: Goal Met Goal 2:: Be able to walk with normal gait pattern without AD or antalgic gait Goal Progress: Progressing Goal 3:: Be able to go up and down the stairs recip with 1 hand rail without any signs of weakness Goal Progress: Progressing Plan: ADD Glut/ ham machine, HS curls for home. Give patient a HEP for sure at [place] as he will have to do HEP vS gym membership. No hip flexion past 90 degrees and no crossing legs for 3 months. 3X/ week for 8 weeks for R hip strengthening, gait training, stair progression, AROM, balance with HEP. Discharge Comments: DC PT to HEP If there are questions or concerns regarding this patient's physical therapy, please feel free to call me at [phone]. Thank you for the referral of this patient. Sincerely, Helen Sadler, MPT
== END 2020-07-27 19:00 | disposition home or self-care (01) ==
LOC: PT 15:30
PROVIDERS: PCP Family Medicine; Referring Provider Registered Nurse; Visit Provider Registered Nurse
DX: T84.51XD Infection and inflammatory reaction due to internal right hip prosthesis, subsequent encounter (principal); Z96.641 Presence of right artificial hip joint
CPT/HCPCS: 97110; 97162; 97530

== ENCOUNTER → 2020-08-10 11:57 | Outpatient (CLI) | payer BC, SELFPAY ==
[2020-06-22 18:24] VITALS: BMI 31.1
[2020-08-10 15:30] LABS: Absolute Lymphocyte Count 1.07 X10^3/uL (0.83-4.51); Absolute Neutrophil Count 3.5 X10^3/uL (2.0-7.7); Basophil# 0.07 X10^3/uL; Basophil% 1.3 % (0-1); Eosinophil# 0.39 X10^3/uL; Hematocrit 44.6 % (40-54); Hemoglobin 14.8 g/dL (13.0-16.5); Lymphocyte # 1.07 X10^3/ul (4.0); Lymphocyte % 19.3 % (19-41); Mean Corp Hgb Conc 33.2 g/dL (32-36); Mean Corpuscular Volume 84.3 fL (80-94); Mean Platelet Vol. 9.3 fl (6.2-12.0); Monocyte# 0.45 X10^3/uL; Monocyte% 8.1 % (0-10); NRBC Flagged by Analyzer 0 % (0-5); Neutrophil # 3.52 X10^3/uL (2.7-7.7); Neutrophil % 63.6 % (47-70); Platelet Count 264 K/mm3 (150-450); RBC Distribution Width CV 13.9 % (11.6-14.6); RBC Distribution Width SD 42.5 fl (35.1-43.9); Red Blood Count 5.29 M/mm3 (4.6-6.2); White Blood Count 5.5 K/mm3 (4.4-11.0)
[2020-08-10 16:07] LABS: CRP < 2.90 mg/L (0.0-3.0)
[2020-08-10 16:28] LABS: Erythrocyte Sedimentation Rate 7 mm/hr (0-20)
== END ==
PROVIDERS: PCP Family Medicine; Referring Provider Family Medicine; Visit Provider Specialist
DX: Z96.641 Presence of right artificial hip joint (principal)
CPT/HCPCS: 36415; 85025; 85652; 86140

== ENCOUNTER → 2021-01-11 08:35 | Outpatient (CLI) | payer BC, SELFPAY ==
[2020-06-22 18:24] VITALS: BMI 31.1
[2021-01-11 10:35] LABS: Anion Gap 6 (5-15); BUN 14 mg/dL (7-18); Calcium,Total 8.5 mg/dL (8.5-10.1); Chloride 107 mmol/L (98-107); Cholesterol 195 mg/dL (200); Creatinine, Serum 0.88 mg/dL (0.70-1.30); EST Glomerular Filtration Rate 95 mL/min (>60); Est Glom Filt Rate - Afr Amer 115 mL/min (>60); Glucose 105 mg/dL (74-106); High Density Lipoprotein 44 mg/dL; Potassium 4.1 mmol/L (3.5-5.1); Sodium Level 139 mmol/L (136-145); Triglycerides 261 mg/dL; Very Low Density Lipoprotein 52 mg/dL (5-40)
== END ==
PROVIDERS: PCP Family Medicine; Visit Provider Family Medicine
DX: I10 Essential (primary) hypertension (principal)
CPT/HCPCS: 36415; 80048; 80061

== ENCOUNTER 2021-04-17 16:40 | Outpatient (RCR) | payer BC, SELFPAY ==
--- NOTE | 2021-04-17 17:53 | HP.PTEVAL ---
Patient's Visit Information CY LIM is a 56 year old M referred to Physical Therapy by Matthew Rivas PA-C with a diagnosis of . Date of Evaluation: 04/17/21 Physical Therapist: Cy Davis, PT, Cert MDT, OCS - Visit Plan Frequency: 2x /Week Duration: 4 Weeks Plan: PT INTERVENTIONS CHRISTELLE EX'S ,POSTUREAL EX'S PROGRESS TO DLS AND MODALITIES FOR PAIN RELEIVE - Subjective This 56 y/o male presents physical therapy with back and hip pain. Patient has h/o right THR 2019 with multiple problems infections with revision with THR with spacer then revision THR JUN 22. Patient had extensive Rehab . Patient developed pain inferior pelvis bone radiates to lateral hip. Seen DR Quinn did x-rays of hip -mild DJD but thought symptoms with lumbar radiculopathy and x-rays DDD L5-S1 with decrease lordosis . Patient did have h/o lumbar pain with treatment consists of seeing chiropractor. Denies paresthesia . Coughing/sneezing -. Bowel/bladder -. Aggravating factors sitting ,driving ,bending lifting, and walking. Alleviating moving. MEDS : naproxen Pain affects sleeping. Patient goal causes deficits for job demands and ADLS'. 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 VOCATION: - Pain Left Hip Pain Intensity (Out of 10): 4 Pain Intensity Range: 10 Comment: lateral hip - Objective POSTURE: mild forward posture. GAIT: reciprocal pattern with mild antalgic gait. SYMMTRIES: align. NEURO: c/o paresthesia/tingling toes, reflexes L3-4,L4-5,L5-S1 2/3. MMT: quads/hams 4/5,hip flexion 4/5,abd 4-/5,ankle 5/5. LUMBAR ROM: flexion ,min/mod loss, extension WFL, side glides min loss. HIP PROM: WFL ,IR 50 DEGREES no pain - Special Tests L/S Slump test left side: Negative L/S Slump test right side: Negative L/S Left Straight Leg Raise: Negative L/S Right Straight Leg Raise: Negative Lumbar Standing: Flexion - Mechanical Response: No effect Lumbar Standing: Flexion - Symptoms During Testing: Increases Lumbar Standing: Flexion - Symptoms After Testing: No worse Lumbar Standing: Extension - Mechanical Response: No effect Lumbar Standing: Extension - Symptoms During Testing: Centralizing Lumbar Standing: Extension - Symptoms After Testing: Better Lumbar Standing: Right Side Glides - Mechanical Response: No effect Lumbar Standing: Right Side [place] - Symptoms During Testing: No effect Lumbar Standing: Right Side [place] - Symptoms After Testing: No effect Lumbar Standing: Left Side [place] - Mechanical Response: No effect Lumbar Standing: Left Side [place] - Symptoms During Testing: Increases Lumbar Standing: Left Side [place] - Symptoms After Testing: Worse Lumbar Lying: Flexion - Mechanical Response: No effect Lumbar Lying: Flexion - Symptoms During Testing: Increases Lumbar Lying: Flexion - Symptoms After Testing: No worse Lumbar Lying: Extension - Mechanical Response: No effect Lumbar Lying: Extension - Symptoms During Testing: Decreases Lumbar Lying: Extension - Symptoms After Testing: Better L Hip Scour: Negative L Hip Quadrant - Intraarticular Pathology: Negative L Hip Trendelenberg - Glut Medius: Negative L Hip Mary - IT Band: Negative - Balance/Special Test Scores Oswestry Low Back Score: 23 - Goals Goal 1:: I with HEP to manage back pain Goal Time Frame: 4-6 Weeks Goal 2:: Patient to improve posture and body mechanics for back pain Goal Time Frame: 4-6 Weeks Goal 3:: Patient to demonstrate 50% improvement with decrease back pain to improve function Goal Time Frame: 4-6 Weeks Goal 4:: Patient to improve lumbar ROM for function of recovery Goal Time Frame: 4-6 Weeks Goal 5:: Patient to improve back owestry score by 5 points or > to improve QOL. Goal Time Frame: 4-6 Weeks - Rehabilitation Potential Physical Therapy Diagnosis: This patient appears to have lumbar radiculopathy with possible disc with symptoms worse with position and symptoms are affected by movement better with movement worse bending, driving and sitting ,hip appears to be cleared thus benefit from PT Rehabilitation Potential: Good - Anticipated Interventions Patient/Client Instruction: Educate patient on: Condition, Plan of Care For the Purpose of:: To decrease pain, To increase ROM, To improve muscle performance and motor function, To improve ability to perform ADL's, To increase tolerance to activity/condition/position, To improve performance and independence with ADL's, To improve ability of physical actions for home/community/work/leisure, To improve gait and locomotor functions, To improve health of tissue, To decrease soft tissue restriction, To increase flexibility/ROM Therapeutic Exercise to Include: Strength training, Body mechanics, Postural training, Flexibilty training, Active ROM, Dynamic Lumbar Stabilization, Christelle Exercises For the Purpose of:: To decrease pain, To increase ROM, To improve muscle performance and motor function, To increase tolerance to activity/condition/position, To improve performance and independence with ADL's, To improve ability of physical actions for home/community/work/leisure, To improve health of tissue, To decrease soft tissue restriction, To increase flexibility/ROM, To reduce risk of recurrence TENS: Yes IF ES: Yes Cryotherapy (ice pack, ice massage): Yes Thermo therapy (hot pack): Yes Ultrasound (thermal/non thermal): Yes For the Purpose of:: To decrease pain, To improve nutrient delivery to tissue, To increase oxygenation perfusion, To improve health of tissue, To decrease soft tissue restriction Thank you for the opportunity to evaluate your patient. For Medicare and Medicare HMO plans, please review the plan of care and approve it. It will need to be FAXED BACK to us at [phone] for Medicare purposes. For Medicare only, by signing this I certify the plan of care. Please let me know if there are questions or concerns regarding this plan of care. Physician Signature: Date:
--- NOTE | 2021-04-20 11:42 | HP.PTEVAL_ITS ---
Patient's Visit Information CY LIM is a 56 year old M referred to Physical Therapy by Matthew Rivas PA-C with a diagnosis of RADICULOPATHY LUMBAR,UNILATERAL PRIMARY OA LEFT HIP ,DDD LUMBAR. Date of Evaluation: 04/17/21 Physical Therapist: Cy Davis, PT, Cert MDT, OCS - Visit Plan Frequency: 2x /Week Duration: 4 Weeks Plan: PT INTERVENTIONS CHRISTELLE EX'S ,POSTUREAL EX'S PROGRESS TO DLS AND MODALITIES FOR PAIN RELEIVE - Subjective This 56 y/o male presents physical therapy with back and hip pain. Patient has h/o right THR 2019 with multiple problems infections with revision with THR with spacer then revision THR JUN 22. Patient had extensive Rehab . Patient developed pain inferior pelvis bone radiates to lateral hip. Seen DR Quinn did x-rays of hip -mild DJD but thought symptoms with lumbar radiculopat hy and x-rays DDD L5-S1 with decrease lordosis . Patient did have h/o lumbar pain with treatment consists of seeing chiropractor. Denies paresthesia . Coughing/sneezing -. Bowel/bladder -. Aggravating factors sitting ,driving ,bending lifting, and walking. Alleviating moving. MEDS : naproxen Pain affects sleeping. Patient goal causes deficits for job demands and ADLS'. 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 VOCATION: - Pain Left Hip Pain Intensity (Out of 10): 4 Pain Intensity Range: 10 Comment: lateral hip - Objective POSTURE: mild forward posture. GAIT: reciprocal pattern with mild antalgic gait. SYMMTRIES: align. NEURO: c/o paresthesia/tingling toes, reflexes L3- 4,L4-5,L5-S1 2/3. MMT: quads/hams 4/5,hip flexion 4/5,abd 4-/5,ankle 5/5. LUMBAR ROM: flexion ,min/mod loss, extension WFL, side glides min loss. HIP PROM: WFL ,IR 50 DEGREES no pain - Special Tests L/S Slump test left side: Negative L/S Slump test right side: Negative L/S Left Straight Leg Raise: Negative L/S Right Straight Leg Raise: Negative Lumbar Standing: Flexion - Mechanical Response: No effect Lumbar Standing: Flexion - Symptoms During Testing: Increases Lumbar Standing: Flexion - Symptoms After Testing: No worse Lumbar Standing: Extension - Mechanical Response: No effect Lumbar Standing: Extension - Symptoms During Testing: Centralizing Lumbar Standing: Extension - Symptoms After Testing: Better Lumbar Standing: Right Side Glides - Mechanical Response: No effect Lumbar Standing: Right Side [place] - Symptoms During Testing: No effect Lumbar Standing: Right Side [place] - Symptoms After Testing: No effect Lumbar Standing: Left Side [place] - Mechanical Response: No effect Lumbar Standing: Left Side [place] - Symptoms During Testing: Increases Lumbar Standing: Left Side [place] - Symptoms After Testing: Worse Lumbar Lying: Flexion - Mechanical Response: No effect Lumbar Lying: Flexion - Symptoms During Testing: Increases Lumbar Lying: Flexion - Symptoms After Testing: No worse Lumbar Lying: Extension - Mechanical Response: No effect Lumbar Lying: Extension - Symptoms During Testing: Decreases Lumbar Lying: Extension - Symptoms After Testing: Better L Hip Scour: Negative L Hip Quadrant - Intraarticular Pathology: Negative L Hip Trendelenberg - Glut Medius: Negative L Hip Mary - IT Band: Negative - Balance/Special Test Scores Oswestry Low Back Score: 23 - Goals Goal 1:: I with HEP to manage back pain Goal Time Frame: 4-6 Weeks Goal 2:: Patient to improve posture and body mechanics for back pain Goal Time Frame: 4-6 Weeks Goal 3:: Patient to demonstrate 50% improvement with decrease back pain to improve function Goal Time Frame: 4-6 Weeks Goal 4:: Patient to improve lumbar ROM for function of recovery Goal Time Frame: 4-6 Weeks Goal 5:: Patient to improve back owestry score by 5 points or > to improve QOL. Goal Time Frame: 4-6 Weeks - Rehabilitation Potential Physical Therapy Diagnosis: This patient appears to have lumbar radiculopathy with possible disc with symptoms worse with position and symptoms are affected by movement better with movement worse bending, driving and sitting ,hip appears to be cleared thus benefit from PT Rehabilitation Potential: Good - Anticipated Interventions Patient/Client Instruction: Educate patient on: Condition, Plan of Care For the Purpose of:: To decrease pain, To increase ROM, To improve muscle performance and motor function, To improve ability to perform ADL's, To increase tolerance to activity/condition/position, To improve performance and independence with ADL's, To improve ability of physical actions for home/commu nity/work/leisure, To improve gait and locomotor functions, To improve health of tissue, To decrease soft tissue restriction, To increase flexibility/ROM Therapeutic Exercise to Include: Strength training, Body mechanics, Postural training, Flexibilty training, Active ROM, Dynamic Lumbar Stabilization, Christelle Exercises For the Purpose of:: To decrease pain, To increase ROM, To improve muscle performance and motor function, To increase tolerance to activity/condition/position, To improve performance and independence with ADL's, To improve ability of physical actions for home/community/work/leisure, To improve health of tissue, To decrease soft tissue restriction, To increase flexibility/ROM, To reduce risk of recurrence TENS: Yes IF ES: Yes Cryotherapy (ice pack, ice massage): Yes Thermo therapy (hot pack): Yes Ultrasound (thermal/non thermal): Yes For the Purpose of:: To decrease pain, To improve nutrient delivery to tissue, To increase oxygenation perfusion, To improve health of tissue, To decrease soft tissue restriction Thank you for the opportunity to evaluate your patient. For Medicare and Medicare HMO plans, please review the plan of care and approve it. It will need to be FAXED BACK to us at [phone] for Medicare purposes. For Medicare only, by signing this I certify the plan of care. Please let me know if there are questions or concerns regarding this plan of care. Physician Signature: Date:
--- NOTE | 2021-07-28 07:27 | HP.PTDCNRP_ITS ---
CY LIM was seen in my office for initial evaluation on 04/17/21. The following Plan of Care was established for this patient: Initial Frequency: 2x /Week Initial Duration: 4 Weeks Patient/Client Instruction: Educate patient on: Condition, Plan of Care For the Purpose of:: To decrease pain, To increase ROM, To improve muscle performance and motor function, To improve ability to perform ADL's, To increase tolerance to activity/condition/position, To improve performance and independence with ADL's, To improve ability of physical actions for home/community/work/leisure, To improve gait and locomotor functions, To improve health of tissue, To decrease soft tissue restriction, To increase flexibility/ROM Therapeutic Exercise to Include: Strength training, Body mechanics, Postural training, Flexibilty training, Active ROM, Dynamic Lumbar Stabilization, [place]un Exercises For the Purpose of:: To decrease pain, To increase ROM, To improve muscle performance and motor function, To increase tolerance to activity/cond ition/position, To improve performance and independence with ADL's, To improve ability of physical actions for home/community/work/leisure, To improve health of tissue, To decrease soft tissue restriction, To increase flexibility/ROM, To reduce risk of recurrence TENS: Yes IF ES: Yes Cryotherapy (ice pack, ice massage): Yes Thermo therapy (hot pack): Yes Ultrasound (thermal/non thermal): Yes For the Purpose of:: To decrease pain, To improve nutrient delivery to tissue, To increase oxygenation perfusion, To improve health of tissue, To decrease soft tissue restriction This patient was last seen in our office . Pertinent comments regarding their Physical therapy will appear below: Patient seen for PT for lumbar radiculopathy PT [place] and HEP thus is d/c due to insurance At this point I will be discontinuing this patient from physical therapy. I would be happy to see this patient again in the future if found appropriate by the physician. Thank you! Cy Davis, PT, Cert MDT, OCS Balance/Gait/Functional tests - Balance/Special Test Scores Oswestry Low Back Score: 23
== END 2021-04-17 19:00 | disposition home or self-care (01) ==
LOC: PT 16:40
PROVIDERS: PCP Family Medicine; Referring Provider Physician Assistant Surgical; Visit Provider Physician Assistant Surgical
DX: M51.16 Intervertebral disc disorders with radiculopathy, lumbar region (principal); M16.12 Unilateral primary osteoarthritis, left hip
CPT/HCPCS: 97110; 97162

== ENCOUNTER 2021-05-09 12:20 | Day surgery (SDC) | payer BC, SELFPAY ==
[2021-05-09] VITALS (7 sets, daily range): BP systolic 115–144; BP diastolic 73–80; PULSE 55–66; RESP 16; TEMP 36.1–36.6; O2SAT 93–97; BMI 31.9
--- NOTE | 2021-05-09 | COLBX_PTH ---
PATIENT: CY LIM LOC: EN U#:[id number] AGE/SX: 56/M ROOM: RE05/09/[address]: Dr. Mayco Gonzalez DO : 1965 BED: DIS: 05/09/2021 SPEC #: [id number] RECD: 05/09/21 16:01 STATUS: RACHELLE BULL #: [id number] ASHLI: 05/09/21 00:[address]: Mayco Gonzalez DEPT: SURGICAL PATHOLOGY RECD BY: James Lauren ENTERED: 05/10/21 09:38 SP TYPE: COLON BX OTHR DR: Dr. Juan Hunt MD Tissues: A - Duodenum, NOS B - Gastric mucous membrane C - Esophageal mucous membrane D - Esophageal mucous membrane Procedures: Surgery Specimen Level IV HEADER [place] [place] DIAGNOSIS: GERD, esophageal dysphagia TISSUE SUBMITTED: A ? Duodenum biopsy, B ? Antrum biopsy for H. pylori and path, C ? Distal esophagus biopsy, D ? Proximal esophagus biopsy MICROSCOPIC DIAGNOSIS A. Duodenum, biopsy: No pathologic change. B. Gastric antrum, biopsy: Mild chronic gastritis. See comment. C. Distal esophagus, biopsy: Gastroesophageal junction with mild chronic inflammation. 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 No evidence of dysplasia. Focal changes of reflux. See comment. D. Proximal esophagus, biopsy: Gastroesophageal junction with mild chronic inflammation. No evidence of goblet cell metaplasia. See Comment. AM:leander 05/11/2021 COMMENT B. The results of immunohistochemistry for Helicobacter pylori will be reported separately ([id number]). C. Alcian blue/PAS stain with matched control supports the above diagnosis. Immunohistochemistry ([id number]) for P53 and Ki-67 will be performed and results will be reported separately. D. Alcian blue/PAS stain with matched control supports the above diagnosis. MICROSCOPIC DESCRIPTION Slides are reviewed. GROSS DESCRIPTION A - Received in fixative is one container labeled with the patient's name and designated duodenum biopsy. The specimen consists of multiple irregular fragments of light werner soft tissue that in aggregate measure 1.2 x 0.3 x 0.1 cm. The specimen is totally submitted in one cassette. B - Received in fixative is one container labeled with the patient's name and designated antrum biopsy. The specimen consists of multiple irregular fragments of light werner soft tissue that in aggregate measure 0.6 x 0.3 x 0.1 cm. The specimen is totally submitted in one cassette. C - Received in fixative is one container labeled with the patient's name and designated distal esophagus biopsy. The specimen consists of two irregular fragments of light werner soft tissue that in aggregate measure 0.6 x 0.3 x 0.1 cm. The specimen is totally submitted in one cassette. D - Received in fixative is one container labeled with the patient's name and designated proximal esophagus biopsy. The specimen consists of two irregular fragments of light werner soft tissue that in aggregate measure 0.6 x 0.3 x 0.1 cm. The specimen is totally submitted in one cassette. / SJ:rg 05/10/21 TC:3 CPT: 49392 x4, 14632
[2021-05-09] MEDS: Lactated Ringers 1,000 ML 100 ML IV (12:43)
--- NOTE | 2021-05-09 13:30 | IMM_PTH ---
PATIENT: CY LIM LOC: EN U#:[id number] AGE/SX: 56/M ROOM: RE05/09/[address]: Dr. Mayco Gonzalez DO : 1965 BED: DIS: 05/09/2021 SPEC #: [id number] RECD: 05/10/21 10:26 STATUS: RACHELLE RELatasha #: [id number] ASHLI: 05/09/21 13:[address]: Mayco Gonzalez DEPT: IMMUNOHISTOCHEMISTRY RECD BY: Mercy Owen ENTERED: 05/10/21 10:27 SP TYPE: IMMUNO OTHR DR: Dr. Juan Hunt MD Tissues: B - Stomach, NOS C - Esophagus, NOS Procedures: H Pylori (initial) P53 (initial) KI-67 (add) PHYSICIAN & INSTITUTION [place] [id number] SPECIMEN INFORMATION: Tissue Source: B ? Antrum biopsy, C ? Distal esophagus biopsy Clinical Info: GERD, esophageal dysphagia Specimen Number: [id number] B & C CPT code: 72296 x2, 84626 METHODOLOGY: Deparaffinized sections of prefer/formalin-fixed tissue or PAP/DQ stained slides are incubated with monoclonal/polyclonal antibodies/oligonucleotide probes. Localization is made via biotin free immunoperoxidase method. Appropriate controls are performed and reacted as expected. Results on target cell population are indicated in the following table: RESULTS: ANTIBODY / CLONE RESULT Block B H Pylori (polyclonal) negative Block C P53 (DO-7) negative Ki-67 (30-9) positive, low These tests were developed and their performance characteristics determined by [facility]. They may not have been cleared or approved by the U.[place]. Food and Drug Administration. The FDA has determined that such clearance or approval is not necessary. The above immunohistochemical/dualISH markers are ordered and reviewed by the pathologist. INTERPRETATION: B. Antrum biopsy: Negative for Helicobacter pylori organisms. C. Distal esophagus, biopsy: No evidence of dysplasia. AM:leander 05/12/2021
--- NOTE | 2021-05-09 14:45 | PCM.HP.BLA ---
History and Physical Date of Admission: 05/09/21 HPI HPI Details: CY LIM, is a 56 M who has a history of gastroesophageal reflux disease. He is never been evaluated with an upper endoscopy. He does not know if he suffers from a hiatal hernia. He does not have any shortness of breath. He does get heartburn on a daily basis if he does not take something for his reflux symptoms. On occasion he does get a soft dysphagia. His symptoms started several years ago. He has been having difficulty with acid reflux omeprazole, nexium and a couple others that he can't remember the name of cause a lot joint pain. Historically he can only take the pills about three times a week, however when he doesn't take them his chest hurts like a heart attack. He also has a lot of difficulty with swallowing he hasn't had a choking incident but does feel like it goes down the wrong pipe a lot ROS ENT ENT: Positive for difficulty swallowing Gastro GI: Positive for heartburn and difficulty swallowing Musc Musculoskeletal: Positive for joint pain, back pain, stiffness, Arthritis and sciatica Exam Const General: cooperative and comfortable Nutritional Appearance: average body habitus and well nourished [facility] Head: normal to inspection Ears: hearing grossly normal bilaterally Nose: external nose normal Face and sinus: normal facial exam Mouth: oral mucosae normal Throat: posterior oropharynx normal Eyes General: appearance normal, both eyes and all related structures Neck Neck: normal visual inspection Chest Chest palpation & inspection: normal inspection of the chest and normal palpation of entire chest wall Resp Effort & Inspection: normal respiratory effort Auscultation: Bilateral: Clear to Auscultation Cardio Palpation: normal PMI Rate: regular rate Rhythm: regular rhythm GI Inspection: normal to inspection Auscultation: normal bowel sounds Percussion: normal to percussion Palpation: no hepatosplenomegaly Skin General: no rashes or lesions noted Neuro General: patient alert Extrem General: normal to inspection Psych Affect: normal affect Quality Reporting Tobacco Screening ([facility] 138) Smoking Status: Former smoker Assessment and Plan Assessment and Plan (1) GERD (gastroesophageal reflux disease): Status: Acute Plan - Dr. Mao Friend, DO: For now we will continue him on omeprazole every 2 days. He says that he is also try H2 receptor blockers. He has not tried Carafate therapy or misoprostol therapy. We also do not know if he has proper gastric emptying. We will do a full assessment including screening her for Cook's esophagus and hopefully he does not have any signs of Cook's esophagus. If he does and he still cannot tolerate medicine he may be a candidate for ablation (2) Esophageal dysphagia: Status: Acute Plan - Dr. Mao Friend, DO: We will evaluate his esophagus. He consented to a possible esophageal dilation. The differential diagnosis for esophageal dysphagia does include an esophageal ring, esophageal web, esophageal stricture and hiatal hernia. This is an updated H&P from the patient was seen in office. Nothing on the physical exam or assessment has changed.
--- NOTE | 2021-05-09 14:50 | OP.EGD_ITS ---
Patient Name: Erick Lazar Procedure Date: 05/09/2021 2:15 PM Date of : 1965 Age: 56 Procedure: Upper GI endoscopy Indications: Heartburn Providers: Mayco Gonzalez DO Referring MD: Mayco Gonzalez DO Medicines: See the Anesthesia note for documentation of the administered medications Patient Profile: This is a 56 year old male. Refer to note in patient chart for documentation of history and physical. Patient has symptoms of acute chest pain, chronic chest pain, chronic dysphagia and dysphagia with both liquids and solids. Complications: No immediate complications. Procedure: Pre-Anesthesia Assessment: - Prior to the procedure, a History and Physical was performed, and patient medications and allergies were reviewed. The risks and benefits of the procedure and the sedation options and risks were discussed with the patient. All questions were answered and informed consent was obtained. Patient identification and proposed procedure were verified by the physician in the pre-procedure area. Mental Status Examination: alert and oriented. Respiratory Examination: clear to auscultation. CV Examination: normal. Prophylactic Antibiotics: The patient does not require prophylactic antibiotics. Prior Anticoagulants: The patient has taken no previous anticoagulant or antiplatelet agents. ASA Grade Assessment: II - A patient with mild systemic disease. After reviewing the risks and benefits, the patient was deemed in satisfactory condition to undergo the procedure. The anesthesia plan was to use moderate sedation / analgesia (conscious sedation). Immediately prior to administration of medications, the patient was re-assessed for adequacy to receive sedatives. The heart rate, respiratory rate, oxygen saturations, blood pressure, adequacy of pulmonary ventilation, and response to care were monitored throughout the procedure. The physical status of the patient was re-assessed after the procedure. After obtaining informed consent, the endoscope was passed under direct vision. Throughout the procedure, the patient's blood pressure, pulse, and oxygen saturations were monitored continuously. The Endoscope was introduced through the mouth, and advanced to the second part of duodenum. The upper GI endoscopy was accomplished without difficulty. The patient tolerated the procedure well. Moderate Sedation: Moderate (conscious) sedation was personally administered by an anesthesia professional. The following parameters were monitored: oxygen saturation, heart rate, blood pressure, and response to care. Total physician intraservice time was 15 minutes. Scope In: 2:33:15 PM Scope Out: 2:43:30 PM Total Procedure Duration Time 0 hours 10 minutes 15 seconds Findings: Esophageal inlet patch was seen at approximately 20 cm from the incisors. Is approximately 3 cm in length and 3 cm in width. Biopsies were taken of the inlet patch. Biopsies were taken with a cold forceps for histology. Estimated blood loss was minimal. LA Grade B (one or more mucosal breaks greater than 5 mm, not extending between the tops of two mucosal folds) esophagitis was found 34 to 36 cm from the incisors. Biopsies were taken with a cold forceps for histology. Three non-bleeding superficial gastric ulcers with no stigmata of bleeding were found in the gastric antrum. The largest lesion was 4 mm in largest dimension. Biopsies were taken with a cold forceps for histology. Verification of patient identification for the specimen was done by the physician. Estimated blood loss was minimal. Patchy mildly erythematous mucosa without active bleeding and with no stigmata of bleeding was found in the second portion of the duodenum. Impression: - LA Grade B reflux esophagitis. Rule out Cook's esophagus. Biopsied. - Non-bleeding gastric ulcers with no stigmata of bleeding. Biopsied. - Erythematous duodenopathy. Recommendation: - Discharge patient to home. - Resume previous diet. - Continue present medications. - Await pathology results. - Repeat upper endoscopy in 1 year for surveillance. - Return to GI office in 2 weeks. Procedure Code(s): --- Professional --- 74019, Esophagogastroduodenoscopy, flexible, transoral; with biopsy, single or multiple Diagnosis Code(s): --- Professional --- K21.0, Gastro-esophageal reflux disease with esophagitis K25.9, Gastric ulcer, unspecified as acute or chronic, without hemorrhage or perforation K31.89, Other diseases of stomach and duodenum CPT copyright 2017 [employer]. All rights reserved. The codes documented in this report are preliminary and upon him coder review may be revised to meet current compliance requirements. Mayco Gonzalez DO 05/09/2021 2:49:45 PM This report has been signed electronically. Number of Addenda: 1 Note Initiated On: 05/09/2021 2:15 PM Addendum Number: 1 Addendum Date: 03/09/2022 6:05:36 AM MAC was used instead of moderate sedation for this patient. Mayco Gonzalez DO 03/09/2022 6:05:41 AM This report has been signed electronically.
--- NOTE | 2021-05-09 14:51 | OP.CCLET_ITS ---
03/09/2022 Juan Hunt MD [address] [id number] Re : Upper GI endoscopy procedure for Erick Masters Dear Dr. Hunt This procedure was performed on Sunday, May 09, 2021. My impressions and recommendations are as follows: Impressions : - LA Grade B reflux esophagitis. Rule out Cook's esophagus. Biopsied. - Non-bleeding gastric ulcers with no stigmata of bleeding. Biopsied. - Erythematous duodenopathy. Recommendations : - Discharge patient to home. - Resume previous diet. - Continue present medications. - Await pathology results. - Repeat upper endoscopy in 1 year for surveillance. - Return to GI office in 2 weeks. My findings are described in the full procedure note, which is enclosed. If I can be of further assistance, please feel free to contact me at . Sincerely, Mayco Friend, 05/09/2021 2:49:45 PM This report has been signed electronically.
== END 2021-05-09 15:52 | disposition home or self-care (01) ==
LOC: EN 12:21 → AC 12:22
PROVIDERS: PCP Family Medicine; Referring Provider Internal Medicine Gastroenterology; Visit Provider Internal Medicine Gastroenterology
PROC: 0DJ08ZZ Inspection of Upper Intestinal Tract, Via Natural or Artificial Opening Endoscopic (ICD-10-PCS; CPT 43235; principal; 2021-05-09 13:25)
DX: K21.00 Gastro-esophageal reflux disease with esophagitis, without bleeding (principal); K29.50 Unspecified chronic gastritis without bleeding; K22.70 Barrett's esophagus without dysplasia; K25.9 Gastric ulcer, unspecified as acute or chronic, without hemorrhage or perforation; K31.89 Other diseases of stomach and duodenum; I10 Essential (primary) hypertension; R13.14 Dysphagia, pharyngoesophageal phase; Z79.899 Other long term (current) drug therapy; Z20.822 Contact with and (suspected) exposure to COVID-19; Z87.891 Personal history of nicotine dependence
CPT/HCPCS: 43239; 87426; 88305; 88341; 88342; C9803; J7120; J2405

== ENCOUNTER 2021-07-31 07:04 | Outpatient (CLI) | payer BC, SELFPAY ==
[2021-07-31 08:09] LABS: Anion Gap 6 (5-15); BUN 18 mg/dL (7-18); BUN/Creat Ratio 19.3 RATIO (10-20); Calcium,Total 8.8 mg/dL (8.5-10.1); Chloride 108 mmol/L (98-107); Cholesterol 208 mg/dL (200); Creatinine, Serum 0.93 mg/dL (0.70-1.30); EST Glomerular Filtration Rate 88 mL/min (>60); Est Glom Filt Rate - Afr Amer 107 mL/min (>60); Glucose 116 mg/dL (74-106); High Density Lipoprotein 41 mg/dL; Sodium Level 141 mmol/L (136-145); Triglycerides 233 mg/dL; Very Low Density Lipoprotein 47 mg/dL (5-40)
== END 2021-07-31 23:59 | disposition short-term general hospital (02) ==
LOC: LAB 07:06
PROVIDERS: PCP Family Medicine; Referring Provider Family Medicine; Visit Provider Family Medicine
DX: I10 Essential (primary) hypertension (principal)
CPT/HCPCS: 36415; 80048; 80061

== ENCOUNTER 2021-09-15 15:30 | Outpatient (RCR) | payer BC, SELFPAY ==
--- NOTE | 2021-08-01 15:20 | HP.PTEVAL_ITS ---
Patient's Visit Information CY LIM is a 56 year old M referred to Physical Therapy by Dr. Linus Quinn MD with a diagnosis of LEFT HIP PAIN. Date of Evaluation: 08/01/21 Physical Therapist: Cy Davis PT, Cert MDT, OCS - Visit Plan Frequency: 2x /Week Duration: 4 Weeks Plan: PT INTERVETIONS ROM/FLEXABILITY ,HIP STRENGTHENING ,FUNCTIONAL STRENGTHENING,MANUAL THERAPY AND CORE STRENGTHENING - Subjective This 56 y/o male presents to physical therapy with left hip pain. Patient has had left lateral hip ~ one year . Patient seen DR Quinn x-rays of the hip showed DJD . Patient was on prednisone and meloxicam which didn't help. Pain located left lateral hip, gluteus/groin and occasional hip add. Aggravating uneven surfaces ,squatting ,kneeling ,lifting and bending. Alleviating factors rest ice. Denies paresthesia/tingling. Coughing/sneezing -. Bowel/bladder -. Patient feels tights in hips. Patient has difficulty putting on socks and shoes . 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 Patient symptoms can affects sleeping. Patient has h/o right THR 2020 s/p multiple revisions due to infections. SOCIAL: . 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 GAIT: reciprocal pattern mild antalgic gait. SYMMTRIES: align. PALAPTION: left SI ,piriformis. PROM HIP : flexion 100 degrees tightness ,IR 25 degrees, ER 35 degrees. MMT: quads/hams 4/5,hip flexion/abduction 3+/5 ,ankle 4/5. FLEXABLITY: hamstrings min/mod tight, piriformis mod tight. LUMBAR ROM : min/mod loss, extension mod loss - Special Tests L/S Slump test left side: Negative L/S Slump test right side: Negative L/S Left Straight Leg Raise: Negative L/S Right Straight Leg Raise: Negative L Hip Scour: Positive L Hip KHURRAM - Intraarticular Pathology: Positive L Hip Trendelenberg - Glut Medius: Negative L Hip Mary - IT Band: Negative - Balance/Special Test Scores Lower Extremity Functional Score: 30 - Goals Goal 1:: I with HEP for hip Goal Time Frame: 4-6 Weeks Goal 2:: Patient to demonstrate 50% improvement with decrease hip pain to improve function Goal Time Frame: 4-6 Weeks Goal 3:: Patient to improve left hip ROM flexion and rotation by 10 degrees to improve function. Goal Time Frame: 4-6 Weeks Goal 4:: Patient to increase strength 4-/5 to improve function with gait. Goal Time Frame: 4-6 Weeks Goal 5:: Patient to increase LFES score by 5-10 points to improve function Goal Time Frame: 4-6 Weeks - Rehabilitation Potential Physical Therapy Diagnosis: This patient has left hip pain with weakness hip abd, flexors ,pain ,thus impairs function gait with ADL'S and job demands thus will benefit from skilled PT Rehabilitation Potential: Good - Anticipated Interventions Patient/Client Instruction: Educate patient on: Condition, Plan of Care For the Purpose of:: To decrease pain, To increase ROM, To improve muscle performance and motor function, To improve ability to perform ADL's, To increase tolerance to activity/condition/position, To improve ability of physical actions for home/community/work/leisure, To improve gait and locomotor functions, To decrease soft tissue restriction, To increase flexibility/ROM, To prevent re- injury Therapeutic Exercise to Include: Strength training, Endurance training, Postural training, Flexibilty training, Active ROM Comment: HIP For the Purpose of:: To decrease pain, To increase ROM, To improve ability to perform ADL's, To increase tolerance to activity/condition/position, To improve ability of physical actions for home/community/work/leisure, To improve health of tissue, To decrease soft tissue restriction, To increase flexibility/ROM Manual Therapy Techniques to Include: Mobilization Comment: HIP For the Purpose of:: To decrease pain, To increase ROM, To improve health of tissue, To decrease soft tissue restriction Thank you for the opportunity to evaluate your patient. For Medicare and Medicare HMO plans, please review the plan of care and approve it. It will need to be FAXED BACK to us at [phone] for Medicare purposes. For Medicare only, by signing this I certify the plan of care. Please let me know if there are questions or concerns regarding this plan of care. Physician Signature: _Date:
--- NOTE | 2021-09-15 16:06 | HP.PTDCSUM ---
It has been my pleasure to treat CY LIM referred by Dr. Linus Quinn MD, with the diagnosis of LEFT HIP PAIN for a total of 9 visit(s). Discharge Date: 09/15/21 Please see the following information for a summary of their discharge status. Subjective: Doing well ready for d/c Left Hip Pain Intensity (Out of 10): 0 % Improvement: 90 Objective/Function: POSTURE: WFL. GAIT: NORMAL NICKY. MMT: QUADS/HAMS 4/5 ,HIP FLEXION 4/5 ,ABD 4-/5. AROM : WFL Goal 1:: I with HEP for hip Goal Progress: Goal Met Goal 2:: Patient to demonstrate 50% improvement with decrease hip pain to improve function Goal Progress: Goal Met Goal 3:: Patient to improve left hip ROM flexion and rotation by 10 degrees to improve function. Goal Progress: Goal Met Goal 4:: Patient to increase strength 4-/5 to improve function with gait. Goal Progress: Goal Met Goal 5:: Patient to increase LFES score by 5-10 points to improve function Goal Progress: Goal Met Plan: D/C Discharge Comments: HEP If there are questions or concerns regarding this patient's physical therapy, please feel free to call me at [phone]. Thank you for the referral of this patient. Sincerely, Cy Davis, PT, Cert MDT, OCS Balance/Gait/Functional tests - Balance/Special Test Scores Lower Extremity Functional Score: 68
== END 2021-09-15 19:00 | disposition home or self-care (01) ==
LOC: PT 15:30
PROVIDERS: PCP Family Medicine; Referring Provider Specialist; Visit Provider Specialist
DX: M25.552 Pain in left hip (principal)
CPT/HCPCS: 97110; 97162

== ENCOUNTER → 2022-01-18 | Outpatient (CLI) | payer BC, SELFPAY ==
--- NOTE | 2022-01-18 08:44 | RAD_ITS ---
STUDY: X-RAY - LEFT SHOULDER REASON FOR EXAM: Male, 56 years old. Shoulder pain. TECHNIQUE: 4 view(s) of the shoulder. COMPARISON: None. FINDINGS: Normal glenohumeral articulation. Mild arthrosis of the acromioclavicular joint. Normal acromion. Normal humeral head and visualized proximal humerus. The soft tissue structures are unremarkable. Normal visualized pulmonary apex. RAD/Shoulder min 2 Views IMPRESSION: Mild arthrosis of the acromioclavicular joint. No acute abnormality or erosive changes. Electronically Signed: Robby Muñoz MD at 10:38 EDT ,
[2022-01-18 10:39] LABS: Anion Gap 2 (5-15); BUN 19 mg/dL (7-18); BUN/Creat Ratio 20.6 RATIO (10-20); Calcium,Total 8.8 mg/dL (8.5-10.1); Chloride 108 mmol/L (98-107); Cholesterol 207 mg/dL (200); Creatinine, Serum 0.92 mg/dL (0.70-1.30); EST Glomerular Filtration Rate 89 mL/min (>60); Est Glom Filt Rate - Afr Amer 108 mL/min (>60); Glucose 113 mg/dL (74-106); High Density Lipoprotein 51 mg/dL; Potassium 3.9 mmol/L (3.5-5.1); Sodium Level 139 mmol/L (136-145); Triglycerides 121 mg/dL; Very Low Density Lipoprotein 24 mg/dL (5-40)
== END | disposition home or self-care (01) ==
PROVIDERS: PCP Family Medicine; Referring Provider Family Medicine; Visit Provider Family Medicine
DX: I10 Essential (primary) hypertension (principal); M19.012 Primary osteoarthritis, left shoulder
CPT/HCPCS: 36415; 73030; 80048; 80061

== ENCOUNTER → 2022-04-02 | Outpatient (CLI) | payer BC, SELFPAY ==
[2022-04-02 15:46] LABS: Erythrocyte Sedimentation Rate 4 mm/hr (0-20)
[2022-04-02 15:47] LABS: Absolute Lymphocyte Count 1.37 X10^3/uL (0.83-4.51); Absolute Neutrophil Count 3.4 X10^3/uL (2.0-7.7); Basophil# 0.06 X10^3/uL; Basophil% 1.1 % (0-1); Eosinophil# 0.13 X10^3/uL; Eosinophils% 2.3 % (0-5); Hematocrit 48.7 % (40-54); Hemoglobin 16.8 g/dL (13.0-16.5); Lymphocyte # 1.37 X10^3/ul (0.83-4.51); Lymphocyte % 24.6 % (19-41); Mean Corp Hgb Conc 34.5 g/dL (32-36); Mean Corpuscular Hgb 30.5 pg (27.0-32.0); Mean Corpuscular Volume 88.5 fL (80-94); Mean Platelet Vol. 9.2 fl (6.2-12.0); Monocyte# 0.51 X10^3/uL; Monocyte% 9.2 % (0-10); NRBC Flagged by Analyzer 0 % (0-5); Neutrophil # 3.44 X10^3/uL (2.7-7.7); Neutrophil % 61.9 % (47-70); Platelet Count 239 K/mm3 (150-450); RBC Distribution Width CV 12.4 % (11.6-14.6); White Blood Count 5.6 K/mm3 (4.4-11.0)
[2022-04-02 16:00] LABS: CRP < 2.90 mg/L (0.0-3.0)
== END | disposition home or self-care (01) ==
LOC: MFPLAB 11:42
PROVIDERS: PCP Family Medicine; Referring Provider Family Medicine; Visit Provider Specialist
DX: Z96.641 Presence of right artificial hip joint (principal)
CPT/HCPCS: 36415; 85025; 85652; 86140

== ENCOUNTER → 2022-04-10 | Outpatient (CLI) | payer BC, SELFPAY ==
--- NOTE | 2022-04-10 10:45 | MRI_ITS ---
STUDY: MRI RIGHT HIP REASON FOR EXAM: Male, 57 years old. RIGHT hip and thigh pain -- RIGHT hip prosthesisMARS TECHNIQUE: Standardized fat and water weighted pulse sequences were obtained in all 3 orthogonal planes. COMPARISON: X-ray 06/22/2020 FINDINGS: Status post right hip arthroplasty. Linear hyperintensity surrounding the stem of the prosthesis may represent earlier mild ostial lysis. No large joint effusion or evidence of metalosis. Normal femoral neck and intratrochanteric region. Normal gluteus minimus, medius and iliopsoas tendons and distal insertions. Mild greater trochanteric bursitis. Normal superior and inferior pubic rami. Normal pubic symphysis. Normal ischial tuberosity. Normal origin of the hamstring tendons. Normal visualized iliac wing, sacroiliac joint, and sacral ala. Normal visualized soft tissue structures of the pelvis. MRI/Lower Ext/No Jt/w/o IMPRESSION: 1. Status post right hip arthroplasty with possible early or mild osteolysis. 2. Mild greater trochanteric bursitis. Electronically Signed: Lorenzo Mosley MD at 17:28 EDT ,
== END | disposition home or self-care (01) ==
PROVIDERS: PCP Family Medicine; Visit Provider Specialist
DX: M70.61 Trochanteric bursitis, right hip (principal); M79.651 Pain in right thigh; Z96.641 Presence of right artificial hip joint
CPT/HCPCS: 73718

== ENCOUNTER → 2022-07-16 | Outpatient (CLI) | payer BC, SELFPAY ==
[2022-07-16 10:53] LABS: Anion Gap 11 (5-15); BUN 19 mg/dL (7-18); BUN/Creat Ratio 21.4 RATIO (10-20); Calcium,Total 9.2 mg/dL (8.5-10.1); Chloride 107 mmol/L (98-107); Cholesterol 201 mg/dL (200); Creatinine, Serum 0.89 mg/dL (0.70-1.30); EST Glomerular Filtration Rate 93 mL/min (>60); Est Glom Filt Rate - Afr Amer 113 mL/min (>60); Glucose 108 mg/dL (74-106); High Density Lipoprotein 44 mg/dL; Potassium 4.2 mmol/L (3.5-5.1); Sodium Level 143 mmol/L (136-145); Triglycerides 135 mg/dL; Very Low Density Lipoprotein 27 mg/dL (5-40)
== END | disposition home or self-care (01) ==
LOC: MFPLAB 08:35
PROVIDERS: PCP Family Medicine; Referring Provider Family Medicine; Visit Provider Family Medicine
DX: I10 Essential (primary) hypertension (principal)
CPT/HCPCS: 36415; 80048; 80061

== ENCOUNTER 2022-08-23 10:43 | Day surgery (SDC) | payer BC, SELFPAY ==
[2022-08-23] VITALS (7 sets, daily range): BP systolic 133–148; BP diastolic 76–90; PULSE 67–74; RESP 16; TEMP 36.6–36.9; O2SAT 94–97; BMI 31.3
[2022-08-23] MEDS: Lactated Ringers 1,000 ML 15 ML IV (10:55)
--- NOTE | 2022-08-23 11:00 | PCM.HP.BLA ---
History and Physical Date of Admission: 08/23/22 Chief Complaint: R hip antibiotic spacer placement Details: CY LIM, is a 56 M who presents to the office today for CY LIM, is a 56 M who presents to the office today for Last visit 05/15/21 for continued evaluation of esophageal dysphagia and GERD. GERD had no improvement at last visit. Dysphagia had improved following EGD on 05/09/21. EGD revealed Cook?s esophagus. Esophageal dysphagia ? Multiple PPI and H2 receptor blockers attempted with no effect. Suspect gastric inlet contributing to symptoms. Discussed ablation. GERD ? start reglan 5mg BID therapy and start AcipHex 20mg PO QD. Currently diagnosed with COVID and visit was done over the telephone. Denies any symptoms at this time. ROS Const Constitutional: No anorexia, fatigue, fever(s), weight change or sleep problems Eyes Eyes: No change in vision ENT ENT: No abnormal hearing, difficulty swallowing, mouth lesions, tongue swelling or throat swelling Resp Respiratory: No cough or shortness of breath Cardio Cardiology: No chest pain at rest, chest pain with exertion, shortness of breath or dyspnea on exertion Gastro GI: No difficulty swallowing Genitourinary Male: No difficulty urinating or burning urination Musc Musculoskeletal: No joint pain, joint swelling, muscle weakness or decreased muscle mass Skin Skin: No hair loss in leg, yellowing of the eye, itchy eyes, rash, skin ulcer or skin swelling Neuro Neurology: No abnormal hearing, abnormal movements, confusion, unsteady gait/balance or memory loss Psych Psychiatric: No anxiety, No confusion and No memory loss Endo Endocrine: No fatigue or weight change Aller/Imm Allergy/Immunologic: No itchy eyes, throat swelling or tongue swelling Bebeto/Lymp Hematologic/Lymphatic: No easy bleeding, easy bruising or enlarged lymph nodes Exam Const General: cooperative and comfortable Nutritional Appearance: average body habitus and well nourished [facility] Head: normal to inspection Ears: hearing grossly normal bilaterally Nose: external nose normal Face and sinus: normal facial exam Mouth: oral mucosae normal Throat: posterior oropharynx normal Eyes General: appearance normal, both eyes and all related structures Neck Neck: normal visual inspection Chest Chest palpation & inspection: normal inspection of the chest and normal palpation of entire chest wall Resp Effort & Inspection: normal respiratory effort Auscultation: Bilateral: Clear to Auscultation Cardio Palpation: normal PMI Rate: regular rate Rhythm: regular rhythm GI Inspection: normal to inspection Auscultation: normal bowel sounds Percussion: normal to percussion Palpation: no hepatosplenomegaly Skin General: no rashes or lesions noted Neuro General: patient alert Extrem General: normal to inspection Psych Affect: normal affect Quality Reporting Tobacco Screening ([facility] 138) Smoking Status: Current every day smoker Assessment and Plan Assessment and Plan (1) Cook esophagus: ?Status:?Acute ?Plan: Patient is okay with taking Protonix at this time. However he wants to get off the medicine so he can not suffer any side effects from the medicine in the future. He also wants to undergo ablation of his Cook's esophagus. (2) Esophageal dysphagia: ?Status:?Acute ?Plan: Esophageal dysphagia is much improved after undergoing esophageal dilation. (3) GERD (gastroesophageal reflux disease): ?Status:?Acute ?Plan: He is not having any symptoms of gastroesophageal reflux disease on PPI therapy. I have examined the patient and the H&P has been reviewed. There are no clinical changes since date of exam.
--- NOTE | 2022-08-23 11:53 | OP.EGD_ITS ---
Patient Name: Erick Lazar Procedure Date: 08/23/2022 11:16 AM Date of : 1965 Age: 57 Procedure: Upper GI endoscopy Indications: Dysphagia, Heartburn, Esophageal reflux, For therapy of Cook's esophagus Providers: Mayco Gonzalez DO Medicines: Monitored Anesthesia Care Patient Profile: This is a 57 year old male. Refer to note in patient chart for documentation of history and physical. Patient has symptoms of chronic dysphagia, chronic heartburn and chronic throat burning. Complications: No immediate complications. Procedure: Pre-Anesthesia Assessment: - Prior to the procedure, a History and Physical was performed, and patient medications and allergies were reviewed. The risks and benefits of the procedure and the sedation options and risks were discussed with the patient. All questions were answered and informed consent was obtained. Patient identification and proposed procedure were verified by the physician in the pre-procedure area. Mental Status Examination: alert and oriented. Airway Examination: normal oropharyngeal airway and neck mobility. Respiratory Examination: clear to auscultation. CV Examination: normal. Prophylactic Antibiotics: The patient does not require prophylactic antibiotics. Prior Anticoagulants: The patient has taken no previous anticoagulant or antiplatelet agents. After reviewing the risks and benefits, the patient was deemed in satisfactory condition to undergo the procedure. The anesthesia plan was to use monitored anesthesia care (MAC). Immediately prior to administration of medications, the patient was re-assessed for adequacy to receive sedatives. The heart rate, respiratory rate, oxygen saturations, blood pressure, adequacy of pulmonary ventilation, and response to care were monitored throughout the procedure. The physical status of the patient was re-assessed after the procedure. After obtaining informed consent, the endoscope was passed under direct vision. Throughout the procedure, the patient's blood pressure, pulse, and oxygen saturations were monitored continuously. The gastroscope was introduced through the mouth, and advanced to the second part of duodenum. The upper GI endoscopy was accomplished without difficulty. The patient tolerated the procedure well. Scope In: 11:27:00 AM Scope Out: 11:36:43 AM Total Procedure Duration Time 0 hours 9 minutes 43 seconds Findings: Two tongues of salmon-colored mucosa were present at 40 cm. Hiatal narrowing was identified at 42 cm. The maximum longitudinal extent of these esophageal mucosal changes was 3 cm in length. Focal radiofrequency ablation of Cook's esophagus was performed. With the endoscope in place, the position and extent of the Cook's mucosa and the anatomic landmarks including proximal and distal extent of Cook's mucosa were noted. Endoscopic visualization identified an ablation site including the entire visible Cook's segment. The Cook's mucosa was irrigated with N-acetylcysteine (Mucomyst) 1% mixed with water. Gastric contents were suctioned. The endoscope was then removed from the patient. The Barrx-90 radiofrequency ablation catheter was attached to the tip of the endoscope. The endoscope with the attached radiofrequency ablation catheter was then passed transorally under direct vision into the esophagus and advanced to the areas of Cook's mucosa. The areas included islands of Cook's mucosa. The radiofrequency ablation catheter was placed in contact with the surface of the Cook's mucosa under direct visualization and energy was applied twice at 12 J/cm2. The ablation zone was cleaned of coagulative debris. The ablation catheter and endoscope were then removed and the catheter was cleaned. The catheter and endoscope were reinserted into the esophagus. A second round of ablation was then performed. Energy was applied twice at 12 J/cm2 to retreat the areas of Cook's epithelium that had been treated with the first series of ablation. The areas of the esophagus where Cook's mucosa had been ablated were examined. Areas of visible Cook's esophagus were completely ablated. A small hiatal hernia was present. The exam of the stomach was otherwise normal. No gross lesions were noted in the second portion of the duodenum. Impression: - [place]-colored mucosa secondary to established short-segment Cook's disease. Treated with radiofrequency ablation. - Small hiatal hernia. - No gross lesions in the second portion of the duodenum. - No specimens collected. Recommendation: - Discharge patient to home. - Full liquid diet. - Continue present medications. -Diet to follow after procedure Day 1 (day of procedure, after procedure) ??? Clear Liquid Diet Fruit juice (no pulp) Gelatin (no red) Fruit ice (no pulp) Popsicle (no pulp) Clear hard candy Black coffee Etc., a more detailed list will be provided after procedure Day 2 and 3 ??? Full Liquid Diet Milkshake Cream of wheat Coffee with cream Creamed soups Etc., a more detailed list will be provided after procedure Day 4 through 10 (7 days) ??? Soft Diet No tough meats No chips No raw fruits or vegetables Etc., a more detailed list will be provided after procedure No warm fluids for 24 hours starting after procedure Medications (prescriptions) you will be given after procedure Proton Pump Inhibitor (Prilosec, Nexium, Protonix, etc.) These medication are used for acid reflux. You should already be taking one of these medications at home or your doctor may prescribe one of these drugs for you the day of the procedure. If you are already on one of these drugs your doctor may increase the dose after your procedure. IMPORTANT: Take this medication until your doctor tells you to stop. Carafate This medication is used to coat your esophagus and prevent ulceration. IMPORTANT: Take this medication until gone. GI Cocktail This medication is used to coat the esophagus. It will help with any pain or discomfort that you may experience when eating after the procedure. Take this medication as needed for discomfort or pain. Zofran ODT This medication is used for nausea. Take this medication as needed for nausea. Liquid Tylenol with Codeine This medication is used for pain. Take this medication as needed for pain. Procedure Code(s): --- Professional --- 23342, Esophagogastroduodenoscopy, flexible, transoral; with ablation of tumor(s), polyp(s), or other lesion(s) (includes pre- and post-dilation and guide wire passage, when performed) CPT copyright 2017 [employer]. All rights reserved. The codes documented in this report are preliminary and upon gunner's mate review may be revised to meet current compliance requirements. Mayco Gonzalez DO 08/23/2022 11:52:33 AM This report has been signed electronically. Number of Addenda: 0 Note Initiated On: 08/23/2022 11:16 AM
--- NOTE | 2022-08-23 11:54 | OP.CCLET_ITS ---
08/23/2022 Juan Hunt MD [address] [phone] Re : Upper GI endoscopy procedure for Erick Picketts Dear Dr. Hunt This procedure was performed on August. My impressions and recommendations are as follows: Impressions : - [place]-colored mucosa secondary to established short-segment Cook's disease. Treated with radiofrequency ablation. - Small hiatal hernia. - No gross lesions in the second portion of the duodenum. - No specimens collected. Recommendations : - Discharge patient to home. - Full liquid diet. - Continue present medications. -Diet to follow after procedure Day 1 (day of procedure, after procedure) ? Clear Liquid Diet Fruit juice (no pulp) Gelatin (no red) Fruit ice (no pulp) Popsicle (no pulp) Clear hard candy Black coffee Etc., a more detailed list will be provided after procedure Day 2 and 3 ? Full Liquid Diet Milkshake Cream of wheat Coffee with cream Creamed soups Etc., a more detailed list will be provided after procedure Day 4 through 10 (7 days) ? Soft Diet No tough meats No chips No raw fruits or vegetables Etc., a more detailed list will be provided after procedure No warm fluids for 24 hours starting after procedure Medications (prescriptions) you will be given after procedure Proton Pump Inhibitor (Prilosec, Nexium, Protonix, etc.) These medication are used for acid reflux. You should already be taking one of these medications at home or your doctor may prescribe one of these drugs for you the day of the procedure. If you are already on one of these drugs your doctor may increase the dose after your procedure. IMPORTANT: Take this medication until your doctor tells you to stop. Carafate This medication is used to coat your esophagus and prevent ulceration. IMPORTANT: Take this medication until gone. GI Cocktail This medication is used to coat the esophagus. It will help with any pain or discomfort that you may experience when eating after the procedure. Take this medication as needed for discomfort or pain. Zofran ODT This medication is used for nausea. Take this medication as needed for nausea. Liquid Tylenol with Codeine This medication is used for pain. Take this medication as needed for pain. My findings are described in the full procedure note, which is enclosed. If I can be of further assistance, please feel free to contact me at . Sincerely, Mayco Friend, DO 08/23/2022 11:52:33 AM This report has been signed electronically.
== END 2022-08-23 13:00 | disposition home or self-care (01) ==
LOC: EN 10:44 → AC 11:36
PROVIDERS: PCP Family Medicine; Referring Provider Family Medicine; Visit Provider Internal Medicine Gastroenterology
PROC: 0DJ08ZZ Inspection of Upper Intestinal Tract, Via Natural or Artificial Opening Endoscopic (ICD-10-PCS; CPT 43235; principal; 2022-08-23 11:40)
DX: K44.9 Diaphragmatic hernia without obstruction or gangrene (principal); K22.70 Barrett's esophagus without dysplasia; R12 Heartburn; R13.10 Dysphagia, unspecified; F17.200 Nicotine dependence, unspecified, uncomplicated; K21.9 Gastro-esophageal reflux disease without esophagitis; I10 Essential (primary) hypertension; Z79.899 Other long term (current) drug therapy
CPT/HCPCS: 43270; J7120

== ENCOUNTER → 2023-01-14 | Outpatient (CLI) | payer BC, SELFPAY ==
[2023-01-14 10:28] LABS: Anion Gap 5 (5-15); BUN 22 mg/dL (7-18); BUN/Creat Ratio 26.9 RATIO (10-20); Calcium,Total 8.8 mg/dL (8.5-10.1); Chloride 110 mmol/L (98-107); Cholesterol 177 mg/dL (200); Creatinine, Serum 0.82 mg/dL (0.70-1.30); EST Glomerular Filtration Rate 102 mL/min (>60); Est Glom Filt Rate - Afr Amer 124 mL/min (>60); Glucose 104 mg/dL (74-106); High Density Lipoprotein 43 mg/dL; Potassium 3.7 mmol/L (3.5-5.1); Sodium Level 140 mmol/L (136-145); Triglycerides 68 mg/dL; Very Low Density Lipoprotein 14 mg/dL (5-40)
== END | disposition home or self-care (01) ==
LOC: MFPLAB 08:37
PROVIDERS: PCP Family Medicine; Visit Provider Family Medicine
DX: I10 Essential (primary) hypertension (principal)
CPT/HCPCS: 36415; 80048; 80061

== ENCOUNTER 2023-04-25 06:00 | Day surgery (SDC) | payer OTHER, SELFPAY ==
[2023-04-25] VITALS (7 sets, daily range): BP systolic 106–122; BP diastolic 69–78; PULSE 61–78; RESP 16–18; TEMP 36.3–36.4; O2SAT 97–99; BMI 28.5
--- NOTE | 2023-04-25 | IMM_PTH ---
PATIENT: CY LIM LOC: EN U#:[id number] AGE/SX: 58/M ROOM: RE04/25/[address]: Dr. Mayco Gonzalez DO : 1965 BED: DIS: 04/25/2023 SPEC #: [id number] RECD: 04/26/23 14:39 STATUS: RACHELLE REQ #: [id number] ASHLI: 04/25/23 00:[address]: Mayco Gonzalez DEPT: IMMUNOHISTOCHEMISTRY RECD BY: Mercy Owen ENTERED: 04/26/23 14:40 SP TYPE: IMMUNO OTHR DR: Dr. Juan Hunt MD Tissues: A - Esophagus, NOS Procedures: P53 (initial) KI-67 (add) PHYSICIAN & INSTITUTION [place] [phone] SPECIMEN INFORMATION: Tissue Source: A - Distal esophagus Clinical Info: GERD, Cook's Specimen Number: [id number] CPT code: 66276, 60165 METHODOLOGY: Deparaffinized sections of prefer/formalin-fixed tissue or PAP/DQ stained slides are incubated with monoclonal/polyclonal antibodies/oligonucleotide probes. Localization is made via biotin free immunoperoxidase method. Appropriate controls are performed and reacted as expected. Results on target cell population are indicated in the following table: RESULTS: ANTIBODY / CLONE RESULT Block A P53 (DO-7) negative (null pattern) Ki-67 (30-9) positive, low These tests were developed and their performance characteristics determined by [facility]. They may not have been cleared or approved by the U.S. Food and Drug Administration. The FDA has determined that such clearance or approval is not necessary. The above immunohistochemical/dualISH markers are ordered and reviewed by the Pathologist. INTERPRETATION: A. Distal esophagus, biopsy: Negative for dysplasia. AMY:leander 04/29/2023
[2023-04-25] MEDS: Lactated Ringers 1,000 ML 15 ML IV (06:42)
--- NOTE | 2023-04-25 07:00 | COLBX_PTH ---
PATIENT: CY LIM LOC: EN U#:[id number] AGE/SX: 58/M ROOM: RE04/25/[address]: Dr. Mayco Gonzalez DO : 1965 BED: DIS: 04/25/2023 SPEC #: [id number] RECD: 04/25/23 09:44 STATUS: RACHELLE BULL #: [id number] ASHLI: 04/25/23 07:[address]: Mayco Gonzalez DEPT: SURGICAL PATHOLOGY RECD BY: Ailin Fitzgerald ENTERED: 04/25/23 11:49 SP TYPE: COLON BX OTHR DR: Dr. Juan Hunt MD Tissues: A - Esophagus, NOS B - Sigmoid colon biopsy Procedures: Special Stain Group II Surgery Specimen Level IV Alcian Blue/PAS (control) HEADER OPERATION: Colonoscopy with biopsy, EGD (MAC) with biopsy, hemorrhoid PRE-OP DIAGNOSIS: GERD, Cook's TISSUE SUBMITTED: A - Distal esophagus biopsy, B - Sigmoid colon biopsy MICROSCOPIC DIAGNOSIS A. Distal esophagus, biopsy: Fragments of gastroesophageal mucosa with focal intestinal metaplasia (goblet cell metaplasia), consistent with Cook's esophagus. Chronic inflammation. Negative for intestinal metaplasia. See comment. B. Sigmoid colon, biopsy: Fragments of colonic mucosa, no pathologic diagnosis. SJ:rg 04/26/2023 COMMENT A. Alcian blue/PAS stain with matched control is used in the evaluation of the specimen. Immunohistochemistry ([id number]) for P53 and Ki-67 will be performed and results will be reported separately. MICROSCOPIC DESCRIPTION Slides are reviewed. GROSS DESCRIPTION A - Received in fixative is one container labeled with the patient's name and designated distal esophagus biopsy. The specimen consists of two irregular fragments of light werner soft tissue that in aggregate measure 0.5 x 0.3 x 0.1 cm. The specimen is totally submitted in one cassette. B - Received in fixative is one container labeled with the patient's name and designated sigmoid colon biopsy. The specimen consists of multiple irregular fragments of light werner soft tissue that in aggregate measure 2.0 x 0.7 x 0.1 cm. The specimen is totally submitted in one cassette. / AM:leander 04/25/2023 TC:5 CPT: 55386 x2, 65378
--- NOTE | 2023-04-25 07:22 | PCM.HP.BLA ---
History and Physical Date of Admission: 04/25/23 f/u GERD, Cook's Details: CY LIM, is a 57 M who presents to the office today for f/u RFA for Cook's esophagus w/o dysplasia. Insurance denied RFA so he paid out of pocket. His heartburn is controlled with pantoprazole 40 mg daily, needs rx. No abd pain, no dysphagia. He had screening colonoscopy age 48, due for 10 yr f/u screening colonoscopy. No bowel concerns. No diarrhea, constipation, melena, hematochezia. ROS Const Constitutional: No fatigue ENT ENT: No difficulty swallowing Gastro GI: No abdominal pain, belching, bloating, change in bowel habits, change in stool character, coffee ground emesis, constipation, cramping, diarrhea, heartburn, difficulty swallowing, feeling full early, excessive flatus, incontinent of stools, Vomiting blood/hematemesis, Blood in stool, loose stools, Black,tarry stools, nausea/dyspepsia, pain with swallowing, vomiting or other Musc Musculoskeletal: No joint pain Skin Skin: No yellowing of the eye or itchy eyes Psych Psychiatric: No anxiety and No depression Endo Endocrine: No fatigue Aller/Imm Allergy/Immunologic: No itchy eyes Bebeto/Lymp Hematologic/Lymphatic: No easy bleeding or easy bruising Exam Const General: cooperative, healthy appearing and comfortable Orientation: alert, awake and oriented x3 Quality Reporting Tobacco Screening ([facility] 138) Smoking Status: Former smoker Assessment and Plan Assessment and Plan (1) GERD (gastroesophageal reflux disease): Status: Chronic Plan: 57 yr old male doing well following RFA for Cook's w/o dysplasia in 08/2022. He continues on pantoprazole 40 mg daily. Had screening colonoscopy age 48, due for his 10 yr screening colonoscopy. Will schedule EGD at same time to f/u RFA. (2) Cook esophagus: Status: Chronic Plan: see above (3) Colonoscopy planned: Status: Acute Plan: see above Medications: Refilled pantoprazole (Protonix) 40 mg PO DAILY 90 tabs 3RF I have examined the patient and the H&P has been reviewed. There are no clinical changes since date of exam.
--- NOTE | 2023-04-25 08:02 | OP.EGD_ITS ---
Patient Name: Erick Lazar Procedure Date: 04/25/2023 7:23 AM Date of : 1965 Age: 58 Procedure: Upper GI endoscopy Indications: Heartburn Providers: Mayco Gonzalez DO Referring MD: Mayco Gonzalez DO Medicines: Monitored Anesthesia Care Patient Profile: This is a 58 year old male. Refer to note in patient chart for documentation of history and physical. Patient has symptoms of chronic heartburn. Complications: No immediate complications. Procedure: Pre-Anesthesia Assessment: - Prior to the procedure, a History and Physical was performed, and patient medications and allergies were reviewed. The patient is competent. The risks and benefits of the procedure and the sedation options and risks were discussed with the patient. All questions were answered and informed consent was obtained. Patient identification and proposed procedure were verified by the physician. Mental Status Examination: alert and oriented. Airway Examination: normal oropharyngeal airway and neck mobility. Prophylactic Antibiotics: The patient does not require prophylactic antibiotics. Prior Anticoagulants: The patient has taken no anticoagulant or antiplatelet agents. After reviewing the risks and benefits, the patient was deemed in satisfactory condition to undergo the procedure. The anesthesia plan was to use monitored anesthesia care (MAC). Immediately prior to administration of medications, the patient was re-assessed for adequacy to receive sedatives. The heart rate, respiratory rate, oxygen saturations, blood pressure, adequacy of pulmonary ventilation, and response to care were monitored throughout the procedure. The physical status of the patient was re-assessed after the procedure. After obtaining informed consent, the endoscope was passed under direct vision. Throughout the procedure, the patient's blood pressure, pulse, and oxygen saturations were monitored continuously. The Colonoscope was introduced through the mouth, and advanced to the second part of duodenum. The upper GI endoscopy was accomplished without difficulty. The patient tolerated the procedure well. Scope In: 7:32:39 AM Scope Out: 7:35:39 AM Total Procedure Duration Time 0 hours 3 minutes 0 seconds Findings: The Z-line was irregular and was found 40 cm from the incisors. Biopsies were taken with a cold forceps for histology. Verification of patient identification for the specimen was done. Estimated blood loss was minimal. A small hiatal hernia was present. The cardia and gastric fundus were normal on retroflexion. The first portion of the duodenum was normal. Impression: - Z-line irregular, 40 cm from the incisors. Biopsied. - Small hiatal hernia. - Normal first portion of the duodenum. Recommendation: - Written discharge instructions were provided to the patient. - The signs and symptoms of potential delayed complications were discussed with the patient. - Patient has a contact number available for emergencies. - Return to normal activities tomorrow. - Resume previous diet. - Continue present medications. - Await pathology results. Procedure Code(s): --- Professional --- 91286, Esophagogastroduodenoscopy, flexible, transoral; with biopsy, single or multiple CPT copyright 2021 [employer]. All rights reserved. The codes documented in this report are preliminary and upon certified professional coder review may be revised to meet current compliance requirements. Mayco Gonzalez DO 04/25/2023 8:02:16 AM This report has been signed electronically. Number of Addenda: 0 Note Initiated On: 04/25/2023 7:23 AM
--- NOTE | 2023-04-25 08:02 | OP.CCLET_ITS ---
04/25/2023 Juan Hunt MD [address] [phone] Re : Upper GI endoscopy procedure for Erick Masters Dear Dr. Hunt This procedure was performed on April. My impressions and recommendations are as follows: Impressions : - Z-line irregular, 40 cm from the incisors. Biopsied. - Small hiatal hernia. - Normal first portion of the duodenum. Recommendations : - Written discharge instructions were provided to the patient. - The signs and symptoms of potential delayed complications were discussed with the patient. - Patient has a contact number available for emergencies. - Return to normal activities tomorrow. - Resume previous diet. - Continue present medications. - Await pathology results. My findings are described in the full procedure note, which is enclosed. If I can be of further assistance, please feel free to contact me at . Sincerely, Mayco Gonzalez, 04/25/2023 8:02:16 AM This report has been signed electronically.
--- NOTE | 2023-04-25 08:06 | OP.CCLET_ITS ---
04/25/2023 Juan Hunt MD [address] [phone] Re : Colonoscopy procedure for Erick Masters Dear Dr. Hunt This procedure was performed on April. My impressions and recommendations are as follows: Impressions : - Hemorrhoids found on perianal exam. - Bleeding external and internal hemorrhoids. Banded. - Localized mild inflammation was found in the sigmoid colon secondary to colitis. Biopsied. - Diverticulosis in the recto-sigmoid colon and in the sigmoid colon. - The examination was otherwise normal on direct and retroflexion views. Recommendations : - Discharge patient to home. - Resume previous diet. - Continue present medications. - Await pathology results. - Repeat colonoscopy in 10 years for screening purposes. My findings are described in the full procedure note, which is enclosed. If I can be of further assistance, please feel free to contact me at . Sincerely, Mayco Gonzalez, 04/25/2023 8:06:06 AM This report has been signed electronically.
--- NOTE | 2023-04-25 08:06 | OP.COLON_ITS ---
Patient Name: Erick Lazar Procedure Date: 04/25/2023 7:36 AM Date of : 1965 Age: 58 Procedure: Colonoscopy Indications: Screening for colorectal malignant neoplasm Providers: Mayco Gonzalez DO Referring MD: Mayco Gonzalez DO Medicines: Monitored Anesthesia Care Patient Profile: This is a 58 year old male. Refer to note in patient chart for documentation of history and physical. Patient has symptoms of chronic heartburn. Last Colonoscopy: more than 10 years ago. Complications: No immediate complications. Procedure: Pre-Anesthesia Assessment: - Prior to the procedure, a History and Physical was performed, and patient medications and allergies were reviewed. The patient is competent. The risks and benefits of the procedure and the sedation options and risks were discussed with the patient. All questions were answered and informed consent was obtained. Patient identification and proposed procedure were verified by the physician. Mental Status Examination: alert and oriented. Airway Examination: normal oropharyngeal airway and neck mobility. Prophylactic Antibiotics: The patient does not require prophylactic antibiotics. Prior Anticoagulants: The patient has taken no anticoagulant or antiplatelet agents. After reviewing the risks and benefits, the patient was deemed in satisfactory condition to undergo the procedure. The anesthesia plan was to use monitored anesthesia care (MAC). Immediately prior to administration of medications, the patient was re-assessed for adequacy to receive sedatives. The heart rate, respiratory rate, oxygen saturations, blood pressure, adequacy of pulmonary ventilation, and response to care were monitored throughout the procedure. The physical status of the patient was re-assessed after the procedure. After I obtained informed consent, the scope was passed under direct vision. Throughout the procedure, the patient's blood pressure, pulse, and oxygen saturations were monitored continuously. The Colonoscope was introduced through the anus and advanced to the cecum, identified by appendiceal orifice and ileocecal valve. The ileocecal valve, appendiceal orifice, and rectum were photographed. Scope In: 7:37:39 AM Scope Withdrawal Time 0 hours 11 minutes 58 seconds Scope Out: 7:52:24 AM Total Procedure Duration Time 0 hours 14 minutes 45 seconds Findings: Hemorrhoids were found on perianal exam. Bleeding external and internal hemorrhoids were found during retroflexion, during perianal exam and during anoscopy. The hemorrhoids were moderate, medium-sized and Grade II (internal hemorrhoids that prolapse but reduce spontaneously). A hemorrhoid was isolated with anoscopy. The ShortShot ligator was positioned over the hemorrhoid at the left lateral position. Suction was applied and one rubber band was placed over the hemorrhoid. This was checked to make certain that the muscularis was free of the band. Post-banding digital rectal exam showed band in good position. There were no complications. Localized mild inflammation characterized by erosions and erythema was found in the sigmoid colon. Biopsies were taken with a cold forceps for histology. Verification of patient identification for the specimen was done. Estimated blood loss was minimal. A few small and large-mouthed diverticula were found in the recto-sigmoid colon and sigmoid colon. The exam was otherwise without abnormality on direct and retroflexion views. Impression: - Hemorrhoids found on perianal exam. - Bleeding external and internal hemorrhoids. Banded. - Localized mild inflammation was found in the sigmoid colon secondary to colitis. Biopsied. - Diverticulosis in the recto-sigmoid colon and in the sigmoid colon. - The examination was otherwise normal on direct and retroflexion views. Recommendation: - Discharge patient to home. - Resume previous diet. - Continue present medications. - Await pathology results. - Repeat colonoscopy in 10 years for screening purposes. Procedure Code(s): --- Professional --- 44875, Colonoscopy, flexible; with band ligation(s) (eg, hemorrhoids) 93443, Colonoscopy, flexible; with biopsy, single or multiple CPT copyright 2021 [employer]. All rights reserved. The codes documented in this report are preliminary and upon clerk secretary review may be revised to meet current compliance requirements. Mayco Gonzalez DO 04/25/2023 8:06:06 AM This report has been signed electronically. Number of Addenda: 0 Note Initiated On: 04/25/2023 7:36 AM
== END 2023-04-25 08:32 | disposition home or self-care (01) ==
LOC: EN 06:03 → AC 06:05
PROVIDERS: PCP Family Medicine; Referring Provider Family Medicine; Visit Provider Internal Medicine Gastroenterology
PROC: 0DJD8ZZ Inspection of Lower Intestinal Tract, Via Natural or Artificial Opening Endoscopic (ICD-10-PCS; CPT 45378; principal; 2023-04-25 06:55)
DX: Z12.11 Encounter for screening for malignant neoplasm of colon (principal); K64.1 Second degree hemorrhoids; K57.30 Diverticulosis of large intestine without perforation or abscess without bleeding; K22.70 Barrett's esophagus without dysplasia; K44.9 Diaphragmatic hernia without obstruction or gangrene; K21.9 Gastro-esophageal reflux disease without esophagitis; I10 Essential (primary) hypertension; Z79.899 Other long term (current) drug therapy; Z87.891 Personal history of nicotine dependence
CPT/HCPCS: 45380; 45398; 43239; 88305; 88313; 88341; 88342; J7120

== ENCOUNTER → 2023-07-12 | Outpatient (CLI) | payer OTHER, SELFPAY ==
--- NOTE | 2023-07-12 14:06 | RAD_ITS ---
STUDY: X-RAY - PELVIS AND LEFT HIP REASON FOR EXAM: Male, 58 years old. Left hip pain. TECHNIQUE: 3 views of the pelvis and left hip. COMPARISON: None. FINDINGS: There is a non-specific bowel gas pattern. Normal visualized soft tissue structures. Normal bilateral iliac wings, sacroiliac joints and visualized sacrum. Normal bilateral superior and inferior pubic rami. Normal pubic symphysis. Normal bilateral ischial tuberosities. There is a right hip arthroplasty in place. There are mild osteoarthritic changes of the left femoral head with marginal osteophyte formation. There is mild osteoarthritic spur formation of the left acetabular rim. There is mild articular joint space narrowing of the left hip. There is no demonstrated fracture. RAD/HIP, UNI W/ Pelvis 2-3 Views IMPRESSION: Mild degenerative arthrosis of the left hip joint. No demonstrated fracture. Electronically Signed: Cam Story MD at 15:39 EST ,
--- OUTSIDE RECORDS SUMMARY | 2023-07-12 14:27 | XMS RPT_ITS | CCD ---
Author Name Unknown Address [address] [place] [address] Organization [facility] Results Test Name Value Interpretation Reference Range Facil ity Summary Purpose Family History No Family History Records Found Advance Directives No Advanced Directives Records Found Additional Source Comments (unrecognized sect ion and content) No Status Records Found INFORMATION SOURCE (unrecogn ized section and content) FOR RECORDS PERTAINING TO PATIENTS WHO ARE OR HAVE BEEN ENROLLED IN A CHEMICAL DEPENDENCY/SUBSTANCEABUSE PROGRAM, SOME INFORMATION MAY BE OMITTED. This clinical summary was aggregated from multiple sources. Caution should be exercised in using it in the provision of clinical care. This summary normalizes information from multiple sources, and as a consequence, information in this document may materially change the coding, format and clinical context of patient data. In addition, data may be omitted in some cases. CLINICAL DECISIONS SHOULD BE BASED ON THE PRIMARY CLINICAL RECORDS. [employer] provides no warranty or guarantee of the accuracy or completeness of information in this document.
== END | disposition home or self-care (01) ==
LOC: MTRAD 14:02
PROVIDERS: PCP Family Medicine; Referring Provider Family Medicine; Visit Provider Family Medicine
DX: M25.552 Pain in left hip (principal)
CPT/HCPCS: 73502

== ENCOUNTER 2023-07-15 05:52 | Day surgery (SDC) | payer OTHER, SELFPAY ==
[2023-07-15] VITALS (7 sets, daily range): BP systolic 115–129; BP diastolic 71–86; PULSE 63–71; RESP 12–16; TEMP 36.2–36.3; O2SAT 96–97; BMI 31.1
--- NOTE | 2023-07-15 | ESO_PTH ---
PATHOLOGY RESULTS PATIENT: CY LIM LOC: EN U#:[id number] AGE/SX: 58/M ROOM: RE07/15/[address]: Dr. Mayco Gonzalez DO : 1965 BED: DIS: 07/15/2023 SPEC #: [id number] RECD: 07/15/23 10:23 STATUS: ARCHELLE BULL #: [id number] ASHLI: 07/15/23 00:[address]: Mayco Gonzalez DEPT: SURGICAL PATHOLOGY RECD BY: James Lauren ENTERED: 07/15/23 10:24 SP TYPE: NAEEM CASTILLO DR: Dr. Juan Hunt MD Tissues: Esophagus, NOS Procedures: Special Stain Group II Surgery Specimen Level IV Alcian Blue/PAS (control) HEADER OPERATION: EGD with biopsy PRE-OP DIAGNOSIS: GERD, Cook's esophagus TISSUE SUBMITTED: Distal esophagus biopsy MICROSCOPIC DIAGNOSIS Distal esophagus, biopsy: Gastroesophageal junctional mucosa with mild chronic inflammation. Focal changes of reflux. No evidence of goblet cell metaplasia. See comment. AM:leander 07/16/2023 COMMENT Alcian blue/PAS stain with matched control supports the above diagnosis. MICROSCOPIC DESCRIPTION Slides are reviewed. GROSS DESCRIPTION Received in fixative is one container labeled with the patient's name and designated distal esophagus biopsy. The specimen consists of two irregular fragments of light werner soft tissue that in aggregate measure 0.6 x 0.3 x 0.1 cm. The specimen is totally submitted in one cassette. / SJ:leander 07/15/2023 TC:3 CPT: 26608, 45994
--- OUTSIDE RECORDS SUMMARY | 2023-07-15 05:55 | XMS RPT_ITS | CCD ---
Author Name Unknown Address [address] [place] [address] Organization [facility] Results Test Name Value Interpretation [...] BE BASED ON THE PRIMARY CLINICAL RECORDS. [employer] provides no warranty or guarantee of the accuracy or completeness of information in this document.
[2023-07-15] MEDS: Lactated Ringers 1,000 ML 15 ML IV (06:31)
--- NOTE | 2023-07-15 07:04 | PCM.HP.BLA ---
History and Physical Date of Admission: 07/15/23 57 M who presents to the office today for f/u RFA for Cook's esophagus w/o dysplasia. Insurance denied RFA so he paid out of pocket. His heartburn is controlled with pantoprazole 40 mg daily, needs rx. No abd pain, no dysphagia. He is in need of surveillance of his Cook's esophagus. ROS Const Constitutional: No fatigue ENT ENT: No difficulty swallowing Gastro GI: No abdominal pain, belching, bloating, change in bowel habits, change in stool character, coffee ground emesis, constipation, cramping, diarrhea, heartburn, difficulty swallowing, feeling full early, excessive flatus, incontinent of stools, Vomiting blood/hematemesis, Blood in stool, loose stools, Black,tarry stools, nausea/dyspepsia, pain with swallowing, vomiting or other Musc Musculoskeletal: No joint pain Skin Skin: No yellowing of the eye or itchy eyes Psych Psychiatric: No anxiety and No depression Endo Endocrine: No fatigue Aller/Imm Allergy/Immunologic: No itchy eyes Bebeto/Lymp Hematologic/Lymphatic: No easy bleeding or easy bruising Exam Const General: cooperative, healthy appearing and comfortable Orientation: alert, awake and oriented x3 Quality Reporting Tobacco Screening ([facility]) Smoking Status: Former smoker Assessment and Plan Assessment and Plan (1) GERD (gastroesophageal reflux disease): Status: Chronic Plan: 57 yr old male doing well following RFA for Cook's w/o dysplasia in 08/2022. He continues on pantoprazole 40 mg daily. Will schedule EGD at same time to f/u RFA. (2) Cook esophagus: Status: Chronic Plan: see above pantoprazole (Protonix) 40 mg PO DAILY 90 tabs 3RF I have examined the patient and the H&P has been reviewed. There are no clinical changes since date of exam.
--- NOTE | 2023-07-15 07:23 | OP.EGD_ITS ---
Patient Name: Erick Lazar Procedure Date: 07/15/2023 7:09 AM Date of : 1965 Age: 58 Procedure: Upper GI endoscopy Indications: Dysphagia, Esophageal reflux Providers: Mayco Gonzalez DO Referring MD: Mayco Gonzalez DO Medicines: Monitored Anesthesia Care Patient Profile: This is a 58 year old male. Refer to note in patient chart for documentation of history and physical. Patient has symptoms of chronic heartburn and chronic nausea. Complications: No immediate complications. Procedure: Pre-Anesthesia Assessment: - Prior to the procedure, a History and Physical was performed, and patient medications and allergies were reviewed. The risks and benefits of the procedure and the sedation options and risks were discussed with the patient. All questions were answered and informed consent was obtained. Patient identification and proposed procedure were verified by the physician. Mental Status Examination: normal. Prophylactic Antibiotics: The patient does not require prophylactic antibiotics. Prior Anticoagulants: The patient has taken no anticoagulant or antiplatelet agents. ASA Grade Assessment: II - A patient with mild systemic disease. After reviewing the risks and benefits, the patient was deemed in satisfactory condition to undergo the procedure. The anesthesia plan was to use monitored anesthesia care (MAC). Immediately prior to administration of medications, the patient was re-assessed for adequacy to receive sedatives. The heart rate, respiratory rate, oxygen saturations, blood pressure, adequacy of pulmonary ventilation, and response to care were monitored throughout the procedure. The physical status of the patient was re-assessed after the procedure. After obtaining informed consent, the endoscope was passed under direct vision. Throughout the procedure, the patient's blood pressure, pulse, and oxygen saturations were monitored continuously. The gastroscope was introduced through the mouth, and advanced to the second part of duodenum. The upper GI endoscopy was accomplished without difficulty. The patient tolerated the procedure well. Scope In: 7:14:33 AM Scope Out: 7:17:18 AM Total Procedure Duration Time 0 hours 2 minutes 45 seconds Findings: The Z-line was variable and was found 40 cm from the incisors. Biopsies were taken with a cold forceps for histology. Verification of patient identification for the specimen was done. Estimated blood loss was minimal. The entire examined stomach was normal. The second portion of the duodenum was normal. Impression: - Z-line variable, 40 cm from the incisors. Biopsied. - Normal stomach. - Normal second portion of the duodenum. Recommendation: - Discharge patient to home. - Resume previous diet. - Continue present medications. - Await pathology results. Procedure Code(s): --- Professional --- 56004, Esophagogastroduodenoscopy, flexible, transoral; with biopsy, single or multiple CPT copyright 2021 [employer]. All rights reserved. The codes documented in this report are preliminary and upon valet review may be revised to meet current compliance requirements. Mayco Gonzalez DO 07/15/2023 7:22:59 AM This report has been signed electronically. Number of Addenda: 0 Note Initiated On: 07/15/2023 7:09 AM
--- NOTE | 2023-07-15 07:23 | OP.CCLET_ITS ---
07/15/2023 Juan Hunt MD [address] [id number] Re : Upper GI endoscopy procedure for Erick Masters Dear Dr. Hunt This procedure was performed on Saturday, July 15, 2023. My impressions and recommendations are as follows: Impressions : - Z-line variable, 40 cm from the incisors. Biopsied. - Normal stomach. - Normal second portion of the duodenum. Recommendations : - Discharge patient to home. - Resume previous diet. - Continue present medications. - Await pathology results. My findings are described in the full procedure note, which is enclosed. If I can be of further assistance, please feel free to contact me at . Sincerely, Mayco Gonzalez, 07/15/2023 7:22:59 AM This report has been signed electronically.
== END 2023-07-15 08:05 | disposition home or self-care (01) ==
LOC: EN 05:54 → AC 05:55
PROVIDERS: PCP Family Medicine; Referring Provider Family Medicine; Visit Provider Internal Medicine Gastroenterology
PROC: 0DJ08ZZ Inspection of Upper Intestinal Tract, Via Natural or Artificial Opening Endoscopic (ICD-10-PCS; CPT 43235; principal; 2023-07-15 06:55)
DX: K21.9 Gastro-esophageal reflux disease without esophagitis (principal); K22.70 Barrett's esophagus without dysplasia; R13.19 Other dysphagia; I10 Essential (primary) hypertension; Z90.49 Acquired absence of other specified parts of digestive tract; Z79.899 Other long term (current) drug therapy; Z87.891 Personal history of nicotine dependence
CPT/HCPCS: 43239; 88305; 88313; J7120; J2405

== ENCOUNTER 2023-09-26 18:00 | Outpatient (RCR) | payer OTHER, SELFPAY ==
--- NOTE | 2023-07-22 19:55 | HP.PTEVAL ---
Patient's Visit Information Visit Information Visit Information: CY LIM is a 58 year old M referred to Physical Therapy by Dr. Juan Hunt MD with a diagnosis of LEFT HIP PAIN. Date of Evaluation: 07/22/23 Physical Therapist: Cy Davis PT, Cert MDT, OCS Visit Plan Frequency: 2x /Week Duration: 4 Weeks Plan: PT INTERVENTIONS HIP ROM/FLEXABLITY ,STRENGTHENING HIP ,MCKENIE EX'S ,DLS AND MODALTIES ASE NEEDED Subjective Subjective: This 58 y/o male presents to physical therapy with left hip pain. This patient has had left hip pain since ~ Jun 2023 . Patient was on vacation developed lumbar pain 2days. Seen Chiropractor for back which helped some. Patient seen Dr Mendiola recommended PT and medication. Patient had -rays hip showed DJD. Patient pain located left groin. Pain located left groin and left lateral hip. Aggravating factors bending to put on shoes , bending ,lifting. Alleviating factors walking and resting. Patient pain affects sleeping . Denies paresthesia/tingling except left feet occasionally. Patient pain affects ADLS and job demands /housework tasks. Patient has had PT in past. Patient goals to decrease pain. Patient is in [employer] for 9 hs. 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 Left Back: Pain Intensity (Out of 10): 6 Pain Intensity Range: 10 Left Head: Pain Intensity (Out of 10): 6 Pain Intensity Range: 10 Objective Objective: POSTURE: mild forward posture PALPTION: unremarkable GAIT: reciprocals pattern mild decrease stance time left side FLEXABILITY: hamstrings min tight ,piriformis mod tight HIP ROM: flexion ~ 100 degrees pain ,IR 25 degrees pain , Hip abduction 45 degrees MMT: quads/hams 4/5 ,( Peak force ) hip flexion 34,8 ,hip abduction 19.6 LUMBAR ROM: flexion min loss pain hamstrings ,extension min loss ,side glides min loss Special Tests L/S Slump test left side: Negative L/S Slump test right side: Negative L/S Left Straight Leg Raise: Negative L/S Right Straight Leg Raise: Negative Lumbar Standing: Flexion - Mechanical Response: No effect Lumbar Standing: Flexion - Symptoms During Testing: Increases Lumbar Standing: Flexion - Symptoms After Testing: Worse Lumbar Standing: Extension - Symptoms During Testing: Increases Lumbar Standing: Extension - Symptoms After Testing: No worse Lumbar Standing: Right Side Glides - Mechanical Response: No effect Lumbar Standing: Right Side [place] - Symptoms During Testing: No effect Lumbar Standing: Right Side [place] - Symptoms After Testing: No effect Lumbar Standing: Left Side [place] - Mechanical Response: No effect Lumbar Standing: Left Side [place] - Symptoms During Testing: No effect Lumbar Standing: Left Side [place] - Symptoms After Testing: No effect Balance/Special Test Scores Lower Extremity Functional Score: 40 Goals Goal 1:: Patient to be I with HEP for hip Goal Time Frame: 4-6 Weeks Goal 2:: Patient to improve peak force of hip abduction by 5-10 # strength to improve function and gait Goal Time Frame: 4-6 Weeks Goal 3:: Patient to improve lumbar ROM for function of recovery to tie shoes Goal Time Frame: 4-6 Weeks Goal 4:: Patient to demonstrate 50% improvement with function and less pain Goal Time Frame: 4-6 Weeks Goal 5:: Patient to improve left hip ROM by 10 degrees with less pain to improve function Goal Time Frame: 4-6 Weeks Goal 6:: Patient to improve LFES score by 5 points to improve QOL Goal Time Frame: 4-6 Weeks Rehabilitation Potential Physical Therapy Diagnosis: Patient has left hip pain with hip pathology x-rays showed DJD as well has lumbar pain affects hamstrings with pain worse with motion testing and positioning along with hip weakness glut Medius with pain with IR and flexion thus benefit from skilled PT Rehabilitation Potential: Good Anticipated Interventions Patient/Client Instruction: Educate patient on: Condition and Plan of Care For the Purpose of:: To decrease pain, To improve nutrient delivery to tissue, To improve muscle performance and motor function, To improve ability to perform ADL's, To increase tolerance to activity/condition/position, To improve performance and independence with ADL's, To improve ability of physical actions for home/community/work/leisure, To improve gait and locomotor functions, To improve health of tissue, To decrease soft tissue restriction, To increase flexibility/ROM and To improve ability to perform tasks related to life management Therapeutic Exercise to Include: Strength training, Balance training, Body mechanics, Postural training, Flexibilty training, Dynamic Lumbar Stabilization and Nahun Exercises Comment: HIP For the Purpose of:: To decrease pain, To increase ROM, To improve muscle performance and motor function, To improve ability to perform ADL's, To increase tolerance to activity/condition/position, To improve ability of physical actions for home/community/work/leisure, To improve health of tissue, To decrease soft tissue restriction, To increase flexibility/ROM and To prevent re-injury TENS: Yes IF ES: Yes Cryotherapy (ice pack, ice massage): Yes For the Purpose of:: To improve nutrient delivery to tissue, To increase oxygenation perfusion, To improve muscle performance and motor function, To increase tolerance to activity/condition/position, To improve performance and independence with ADL's, To improve health of tissue, To decrease soft tissue restriction and To improve tolerance to ADL's Text: Thank you for the opportunity to evaluate your patient. For Medicare and Medicare HMO plans, please review the plan of care and approve it. It will need to be FAXED BACK to us at [phone] for Medicare purposes. For Medicare only, by signing this I certify the plan of care. Please let me know if there are questions or concerns regarding this plan of care. Physician Signature: Date:
--- NOTE | 2023-10-30 08:44 | HP.PT.NRP ---
Patient Information Patient Information: CY LIM was seen in my office for initial evaluation on 07/22/23. The following Plan of Care was established for this patient: POC Established Initial Frequency: 2x /Week Initial Duration: 4 Weeks Anticipated Interventions Patient/Client Instruction: Educate patient on: Condition and Plan of Care For the Purpose of:: To decrease pain, To improve nutrient delivery to tissue, To improve muscle performance and motor function, To improve ability to perform ADL's, To increase tolerance to activity/condition/position, To improve performance and independence with ADL's, To improve ability of physical actions for home/community/work/leisure, To improve gait and locomotor functions, To improve health of tissue, To decrease soft tissue restriction, To increase flexibility/ROM and To improve ability to perform tasks related to life management Therapeutic Exercise to Include: Strength training, Balance training, Body mechanics, Postural training, Flexibilty training, Dynamic Lumbar Stabilization and Nahun Exercises For the Purpose of:: To decrease pain, To increase ROM, To improve muscle performance and motor function, To improve ability to perform ADL's, To increase tolerance to activity/condition/position, To improve ability of physical actions for home/community/work/leisure, To improve health of tissue, To decrease soft tissue restriction, To increase flexibility/ROM and To prevent re-injury TENS: Yes IF ES: Yes Cryotherapy (ice pack, ice massage): Yes For the Purpose of:: To improve nutrient delivery to tissue, To increase oxygenation perfusion, To improve muscle performance and motor function, To increase tolerance to activity/condition/position, To improve performance and independence with ADL's, To improve health of tissue, To decrease soft tissue restriction and To improve tolerance to ADL's Last Seen Last Seen: This patient was last seen in our office . Pertinent comments regarding their Physical therapy will appear below: Patient seen for hip pain for strengthening program doing well d/c to gym program. At this point I will be discontinuing this patient from physical therapy. I would be happy to see this patient again in the future if found appropriate by the physician. Thank you! Cy Davis, PT, Cert MDT, OCS Balance/Gait/Functional tests Balance/Special Test Scores Lower Extremity Functional Score: 40
== END 2023-09-26 19:00 | disposition home or self-care (01) ==
LOC: PT 18:00
PROVIDERS: PCP Family Medicine; Referring Provider Family Medicine; Visit Provider Family Medicine
DX: M25.552 Pain in left hip (principal)
CPT/HCPCS: 97014; 97110; 97162; 97530; G0283

== ENCOUNTER → 2024-02-20 | Outpatient (CLI) | payer OTHER, SELFPAY ==
[2024-02-20 11:08] LABS: Anion Gap 8 (5-15); BUN 18 mg/dL (7-18); BUN/Creat Ratio 19.6 RATIO (10-20); Calcium,Total 8.7 mg/dL (8.5-10.1); Chloride 106 mmol/L (98-107); Cholesterol 171 mg/dL (200); Creatinine, Serum 0.92 mg/dL (0.70-1.30); EST Glomerular Filtration Rate 89 mL/min (>60); Est Glom Filt Rate - Afr Amer 108 mL/min (>60); Glucose 120 mg/dL (74-106); High Density Lipoprotein 52 mg/dL; Sodium Level 140 mmol/L (136-145); Triglycerides 70 mg/dL; Very Low Density Lipoprotein 14 mg/dL (5-40)
== END | disposition home or self-care (01) ==
LOC: MFPLAB 08:34
PROVIDERS: PCP Family Medicine; Visit Provider Family Medicine
DX: I10 Essential (primary) hypertension (principal)
CPT/HCPCS: 36415; 80048; 80061

== ENCOUNTER → 2024-08-17 | Outpatient (CLI) | payer OTHER, SELFPAY ==
[2024-08-17 10:37] LABS: Absolute Neutrophil Count 2.7 X10^3/uL (2.0-7.7); Basophil# 0.06 X10^3/uL; Basophil% 1.3 % (0-1); Eosinophil# 0.16 X10^3/uL; Eosinophils% 3.5 % (0-5); Hematocrit 53.5 % (40-54); Mean Corp Hgb Conc 33.6 g/dL (32-36); Mean Corpuscular Hgb 28.7 pg (27.0-32.0); Mean Corpuscular Volume 85.2 fL (80-94); Mean Platelet Vol. 9.5 fl (6.2-12.0); Monocyte# 0.46 X10^3/uL; NRBC Flagged by Analyzer 0 % (0-5); Neutrophil # 2.71 X10^3/uL (2.7-7.7); Neutrophil % 58.6 % (47-70); Platelet Count 195 K/mm3 (150-450); RBC Distribution Width SD 39.9 fl (35.1-43.9); Red Blood Count 6.28 M/mm3 (4.6-6.2); White Blood Count 4.6 K/mm3 (4.4-11.0)
[2024-08-17 10:48] LABS: ALB/GLOB Ratio 1.2 RATIO (0.9-2.4); AST(SGOT) 27 U/L (15-37); Alanine Aminotransfer ALT/SGPT 37 U/L (16-61); Albumin, Serum 3.6 g/dL (3.2-5.0); Alkaline Phosphatase 72 U/L (45-117); Anion Gap 7 (5-15); BUN 14 mg/dL (7-18); BUN/Creat Ratio 13.9 RATIO (10-20); Calcium,Total 8.7 mg/dL (8.5-10.1); Chloride 110 mmol/L (98-107); Cholesterol 147 mg/dL (200); Creatinine, Serum 1.01 mg/dL (0.70-1.30); EST Glomerular Filtration Rate 80 mL/min (>60); Est Glom Filt Rate - Afr Amer 96 mL/min (>60); Globulin 2.9 g/dL (2.2-4.2); Glucose 108 mg/dL (74-106); High Density Lipoprotein 37 mg/dL; PSA,Total - Annual Screen 0.77 ng/mL (0.00-4.00); Potassium 3.9 mmol/L (3.5-5.1); Protein, Total 6.5 g/dL (6.4-8.2); Sodium Level 143 mmol/L (136-145); Triglycerides 70 mg/dL; Very Low Density Lipoprotein 14 mg/dL (5-40)
[2024-08-18 14:44] LABS: Pathologist Review Reviewed
== END | disposition home or self-care (01) ==
PROVIDERS: PCP Family Medicine; Referring Provider Family Medicine; Visit Provider Family Medicine
DX: E29.1 Testicular hypofunction (principal); I10 Essential (primary) hypertension
CPT/HCPCS: 36415; 80053; 80061; 84153; 84403; 85025; G0103

== ENCOUNTER → 2024-08-26 | Outpatient (CLI) | payer OTHER, SELFPAY ==
[2024-08-28 05:07] LABS: HEPATITIS B SURFACE AG Negative (Negative); Hep C Antibodies Non Reactive (Non Reactive); Hepatitis A IgM Antibody Negative (Negative); Hepatitis B Core AB IgM Negative (Negative)
== END | disposition home or self-care (01) ==
LOC: MFPLAB 16:16
PROVIDERS: PCP Family Medicine; Referring Provider Family Medicine; Visit Provider Family Medicine
DX: R79.89 Other specified abnormal findings of blood chemistry (principal)
CPT/HCPCS: 36415; 80074

== ENCOUNTER → 2024-11-24 | Outpatient (CLI) | payer OTHER, SELFPAY | END | disposition home or self-care (01) | LOC: SL 19:52 | PROVIDERS: PCP Family Medicine; Referring Provider Internal Medicine Pulmonary Disease; Visit Provider Internal Medicine Pulmonary Disease | DX: G47.10 Hypersomnia, unspecified (principal) | CPT/HCPCS: 95810 ==

== ENCOUNTER → 2024-12-03 | Outpatient (CLI) | payer OTHER, SELFPAY | END | disposition home or self-care (01) | PROVIDERS: PCP Family Medicine; Referring Provider Internal Medicine Pulmonary Disease; Visit Provider Internal Medicine Pulmonary Disease | DX: G47.10 Hypersomnia, unspecified (principal) | CPT/HCPCS: 94060; 94726; 94729 ==

== ENCOUNTER → 2024-12-30 | Outpatient (CLI) | payer OTHER, SELFPAY | END | disposition home or self-care (01) | LOC: SL 19:59 | PROVIDERS: PCP Family Medicine; Referring Provider Internal Medicine Pulmonary Disease; Visit Provider Internal Medicine Pulmonary Disease | DX: G47.33 Obstructive sleep apnea (adult) (pediatric) (principal) | CPT/HCPCS: 95811 ==

== ENCOUNTER → 2025-02-19 | Outpatient (CLI) | payer OTHER, SELFPAY ==
[2025-02-19 10:32] LABS: Hematocrit 53.4 % (40-54); Immature Granulocytes Count 0.030 X10^3/uL (0.0-0.0); Mean Corp Hgb Conc 33.7 g/dL (32-36); Mean Corpuscular Volume 83.6 fL (80-94); Mean Platelet Vol. 9.1 fl (6.2-12.0); NRBC Flagged by Analyzer 0 % (0-5); Platelet Count 211 K/mm3 (150-450); RBC Distribution Width CV 13.5 % (11.6-14.6); RBC Distribution Width SD 40.0 fl (35.1-43.9); Red Blood Count 6.39 M/mm3 (4.6-6.2); White Blood Count 4.2 K/mm3 (4.4-11.0)
[2025-02-19 10:50] LABS: Creatinine, Urine (random) 270.00 mg/dL (39.00-259.00); Microalbumin,Random Urine < 12.0 mg/L (<20 mg/L)
[2025-02-19 10:52] LABS: Hemoglobin 18.0 g/dL (13.0-16.5)
[2025-02-19 11:03] LABS: Anion Gap 12 (5-15); BUN 18 mg/dL (4-19); BUN/Creat Ratio 17.3 RATIO (10-20); Calcium,Total 9.1 mg/dL (7.6-11.0); Carbon Dioxide 23.9 mmol/L (21.0-32.0); Chloride 104 mmol/L (98-108); Cholesterol 168 mg/dL (<=200); Glucose 116 mg/dL (70-99); Low Density Lipoprotein Calc. 110 mg/dL; PSA,Total- Diagnostic 0.64 ng/mL (0.00-4.00); Potassium 4.4 mmol/L (3.3-5.1); Triglycerides 114 mg/dL; Very Low Density Lipoprotein 23 mg/dL (5-40); cholesterol:hdl ratio screen 4.72
[2025-02-25 14:09] LABS: Testosterone, % Free 3.23 % (1.50-4.20); Testosterone, Free 24.64 ng/dL (5.00-21.00)
== END | disposition home or self-care (01) ==
LOC: MFPLAB 08:22
PROVIDERS: PCP Family Medicine; Visit Provider Family Medicine
DX: I10 Essential (primary) hypertension (principal); E29.1 Testicular hypofunction
CPT/HCPCS: 36415; 80048; 80061; 82043; 82570; 84153; 84402; 84403; 85025